=== PATIENT | female | born 1960 | race Two or more races ===

== ENCOUNTER 2016-12-30 09:56 | Inpatient (IN) | payer MEDICAID ==
[~2016-12-30] VITALS: Ht 152.4 cm; Wt 77.5 kg
[2016-12-30 11:20] LABS: Urine Bilirubin Negative (Negative); Urine Blood TRACE /uL (Negative); Urine Color Yellow (Yellow); Urine Glucose Normal (Normal); Urine Ketone Negative (Negative); Urine Nitrite Negative (Negative); Urine RBC 1 /hpf (0 - 4); Urine Squamous Epithelial Cell FEW /hpf (<5); Urine Urobilinogen Normal (Negative); Urine pH 6.5 (5.0-8.0)
[2016-12-30 11:34] LABS: Basophils # (auto) 0 uL; Basophils % (auto) 0.4 % (0.0-2.0); DEFINITIVE VIEW TRANSMISSION; Eosinophils # (auto) 0.1 uL; Eosinophils % (auto) 1.4 % (0.0-7.0); Hematocrit 38.7 % (36.0-46.0); Hemoglobin 12.6 g/dL (12.2-16.2); Lymphocytes # (auto) 1.5 uL; Mean Corpuscular Hemoglobin 24.8 pg (28.0-32.0); Mean Corpuscular Hgb Conc. 32.5 g/dL (32.0-36.0); Mean Corpuscular Volume 76.3 fL (80.0-100.0); Mean Platelet Volume 7.5 fL (7.4-10.4); Monocytes # (auto) 0.6 uL; Monocytes % (auto) 7.2 % (0.0-12.0); Neutrophils # (auto) 6.3 uL; Platelet Count (auto) 547 10^3/uL (140-450); Red Cell Distribution Width 15.4 % (11.6-16.0); White Blood Cell 8.6 10^3/uL (4.4-10.8)
[2016-12-30 11:54] LABS: Albumin 3.3 g/dL (3.4-5.0); BUN/Creatinine Ratio 8.2; Bilirubin, Total 0.3 mg/dL (0.2-1.0); Calcium 9.1 mg/dL (8.5-10.1); Potassium 3.8 mmol/L (3.5-5.1); Total Protein 8.3 g/dL (6.4-8.2)
[2016-12-30 11:58] LABS: B-Type Natriuretic Peptide 4.53 pg/mL (0-100)
[2016-12-30 12:51] LABS: Temperature: 22.4 C (20.0-25.0)
[2016-12-30] MEDS ORDERED: ONDANSETRON HCL 4 MG/2 ML VIAL IV PRN (14:00)
[2016-12-30] MEDS ORDERED: HYDROcodone-ACET 5/325MG TAB PO PRN (14:00)
[2016-12-30] MEDS ORDERED: cefTRIAXone 1GM/50ML D5W 50 ML IV ONE (14:00)
[2016-12-30] MEDS: SODIUM CHLORIDE 0.9% 1,000 ML IV SCH (14:39)
[2016-12-30] MEDS ORDERED: AZITHROMYCIN 500MG/D5W 250ML 250 ML IV ONE (15:00)
[2016-12-30 17:42] VITALS: BP 125/69
[2016-12-30] MEDS ORDERED: ACET500C PO (17:46)
[2016-12-30] MEDS ORDERED: IBUP800T24 PO (17:48)
[2016-12-30] MEDS: PROMETHAZINE W/CODEINE 5 ML ORAL SYRUP PO PRN (17:55)
[2016-12-30] MEDS: IPRATROPIUM BROM 0.5 MG/2.5ML INH SOL NEB SCH (18:56)
[2016-12-30] MEDS: ALBUTEROL SULF 2.5 MG/0.5ML(0.5%) NEB SOLN NEB SCH (18:56)
[2016-12-30 19:55] VITALS: BP 125/69
[2016-12-30 22:00] VITALS: BP 129/75
[2016-12-31] MEDS: IPRATROPIUM BROM 0.5 MG/2.5ML INH SOL NEB SCH ×4 (01:51→19:25)
[2016-12-31] MEDS: ALBUTEROL SULF 2.5 MG/0.5ML(0.5%) NEB SOLN NEB SCH ×4 (01:51→19:25)
[2016-12-31] MEDS: PROMETHAZINE W/CODEINE 5 ML ORAL SYRUP PO PRN (03:20)
[2016-12-31] MEDS: SODIUM CHLORIDE 0.9% 1,000 ML IV SCH ×3 (03:20→23:57)
[2016-12-31 05:00] VITALS: BP 115/63
[2016-12-31 05:35] LABS: Basophils # (auto) 0 uL; Basophils % (auto) 0.4 % (0.0-2.0); DEFINITIVE VIEW TRANSMISSION; Eosinophils # (auto) 0.1 uL; Eosinophils % (auto) 1.7 % (0.0-7.0); Hematocrit 35.9 % (36.0-46.0); Hemoglobin 11.8 g/dL (12.2-16.2); Lymphocytes # (auto) 1.8 uL; Mean Corpuscular Hemoglobin 25.1 pg (28.0-32.0); Mean Corpuscular Hgb Conc. 32.7 g/dL (32.0-36.0); Mean Corpuscular Volume 76.9 fL (80.0-100.0); Mean Platelet Volume 7.8 fL (7.4-10.4); Monocytes # (auto) 0.6 uL; Monocytes % (auto) 7.4 % (0.0-12.0); Neutrophils # (auto) 5.4 uL; Neutrophils % (auto) 67.5 % (37.0-80.0); Platelet Count (auto) 509 10^3/uL (140-450); Red Cell Distribution Width 15.4 % (11.6-16.0)
[2016-12-31 06:06] LABS: BUN/Creatinine Ratio 8.8; Calcium 8.4 mg/dL (8.5-10.1); Potassium 3.6 mmol/L (3.5-5.1)
[2016-12-31 07:21] VITALS: BP 115/66
[2016-12-31] MEDS: cefTRIAXone 1GM/50ML D5W 50 ML IV SCH (08:42)
[2016-12-31] MEDS ORDERED: ACETAMINOPHEN 500 MG TAB PO PRN (10:15)
[2016-12-31] MEDS: AZITHROMYCIN 500MG/D5W 250ML 250 ML IV SCH (11:09)
[2016-12-31 11:49] VITALS: BP 123/58
[2016-12-31 16:33] VITALS: BP 142/64
[2016-12-31 20:00] VITALS: BP 135/75
[2016-12-31 21:46] VITALS: BP 135/75
[2017-01-01 05:02] VITALS: BP 127/73
[2017-01-01] MEDS: ALBUTEROL SULF 2.5 MG/0.5ML(0.5%) NEB SOLN NEB SCH ×3 (06:08→12:16)
[2017-01-01] MEDS: IPRATROPIUM BROM 0.5 MG/2.5ML INH SOL NEB SCH ×3 (06:09→12:16)
[2017-01-01 09:00] VITALS: BP 150/71
[2017-01-01] MEDS: cefTRIAXone 1GM/50ML D5W 50 ML IV SCH (09:02)
[2017-01-01] MEDS: AZITHROMYCIN 500MG/D5W 250ML 250 ML IV SCH (09:41)
[2017-01-01] MEDS: SODIUM CHLORIDE 0.9% 1,000 ML IV SCH (12:47)
== END 2017-01-01 14:33 | disposition home or self-care (01) | DRG 139 ==
LOC: ER 09:56 → OVERFLOW 09:57 → CENTRAL 17:00
PROVIDERS: ADMIT Internal Medicine; ATTEND Internal Medicine
DX: J18.9 Pneumonia, unspecified organism (principal); N39.0 Urinary tract infection, site not specified; E11.9 Type 2 diabetes mellitus without complications; E66.9 Obesity, unspecified; E86.0 Dehydration; Z68.33 Body mass index [BMI] 33.0-33.9, adult
CPT/HCPCS: 36415; 71020; 80048; 80053; 81001; 83036; 83880; 85025; 94640; 96374; J0696

== ENCOUNTER 2017-01-20 12:00 | Inpatient (IN) | payer MEDICAID ==
[~2017-01-20] VITALS: Ht 152.4 cm; Wt 174.3 kg
[~2017-01-20 12:00] MED LIST: ACET500C PO; IBUP800T24 PO
[2017-01-20 12:59] LABS: Urine Bilirubin Negative (Negative); Urine Blood Negative /uL (Negative); Urine Color Yellow (Yellow); Urine Glucose Normal (Normal); Urine Ketone Negative (Negative); Urine Nitrite Negative (Negative); Urine RBC 1 /hpf (0 - 4); Urine Squamous Epithelial Cell FEW /hpf (<5); Urine Urobilinogen Normal (Negative); Urine pH 5.5 (5.0-8.0)
[2017-01-20 13:49] LABS: Basophils # (auto) 0.1 uL; Basophils % (auto) 0.7 % (0.0-2.0); DEFINITIVE VIEW TRANSMISSION; Eosinophils # (auto) 0.1 uL; Eosinophils % (auto) 1.1 % (0.0-7.0); Hematocrit 39.5 % (36.0-46.0); Hemoglobin 12.9 g/dL (12.2-16.2); Lymphocytes # (auto) 2.2 uL; Lymphocytes % (auto) 19.5 % (10.0-50.0); Mean Corpuscular Hgb Conc. 32.8 g/dL (32.0-36.0); Mean Corpuscular Volume 76.4 fL (80.0-100.0); Mean Platelet Volume 7.8 fL (7.4-10.4); Monocytes # (auto) 0.5 uL; Monocytes % (auto) 4.9 % (0.0-12.0); Neutrophils # (auto) 8.2 uL; Neutrophils % (auto) 73.8 % (37.0-80.0); Platelet Count (auto) 532 10^3/uL (140-450); Red Cell Distribution Width 16.2 % (11.6-16.0); White Blood Cell 11.1 10^3/uL (4.4-10.8)
[2017-01-20 14:21] LABS: Albumin 3.5 g/dL (3.4-5.0); Alkaline Phosphatase 95 U/L (45-117); Anion Gap 11 (5-15); Aspartate Aminotransferase 17 U/L (15-37); BUN/Creatinine Ratio 10.8; Bilirubin, Total 0.2 mg/dL (0.2-1.0); Blood Urea Nitrogen 9 mg/dL (7-18); Calcium 9.1 mg/dL (8.5-10.1); Carbon Dioxide 21 mmol/L (21-32); Chloride 110 mmol/L (98-107); GFR African American 92 mL/min; GFR Non-African American 76 mL/min; Glucose 87 mg/dL (74-106); Sodium 142 mmol/L (136-145); Total Protein 8.5 g/dL (6.4-8.2)
[2017-01-20] MEDS ORDERED: cefTRIAXone 1GM/50ML D5W 50 ML IV ONE (14:45)
[2017-01-20] MEDS ORDERED: FLUCONAZOLE 100 MG TAB PO ONE (14:45)
[2017-01-20] MEDS ORDERED: HYDROcodone-ACET 5/325MG TAB PO PRN (14:45)
[2017-01-20] MEDS ORDERED: ONDANSETRON HCL 4 MG/2 ML VIAL IV PRN (14:45)
[2017-01-20] MEDS ORDERED: MORPHINE SULF INJ 2 MG/ML SYRINGE 1ML IV PRN (14:45)
[2017-01-20] MEDS ORDERED: IOHEXOL 350 MG/ML 100ML IJ ONE (14:47)
[2017-01-20] MEDS: SODIUM CHLORIDE 0.9% 1,000 ML IV SCH (15:00)
[2017-01-20] MEDS ORDERED: SODIUM CHLORIDE 0.9% 500 ML IV ONE (15:15)
[2017-01-20] MEDS: IPRATROPIUM BROM 0.5 MG/2.5ML INH SOL NEB SCH ×2 (18:59→23:59)
[2017-01-20] MEDS: ALBUTEROL SULF 2.5 MG/0.5ML(0.5%) NEB SOLN NEB SCH ×2 (19:00→23:59)
[2017-01-20 20:08] VITALS: BP 151/69
[2017-01-20 21:45] VITALS: BP 141/70
[2017-01-21 04:48] VITALS: BP 112/56
[2017-01-21] MEDS: ALBUTEROL SULF 2.5 MG/0.5ML(0.5%) NEB SOLN NEB SCH ×3 (06:00→19:51)
[2017-01-21] MEDS: IPRATROPIUM BROM 0.5 MG/2.5ML INH SOL NEB SCH ×3 (06:00→19:51)
[2017-01-21 06:26] LABS: Basophils # (auto) 0 uL; Basophils % (auto) 0.3 % (0.0-2.0); DEFINITIVE VIEW TRANSMISSION; Eosinophils # (auto) 0.2 uL; Eosinophils % (auto) 1.5 % (0.0-7.0); Hematocrit 35.3 % (36.0-46.0); Hemoglobin 11.5 g/dL (12.2-16.2); Lymphocytes # (auto) 2.8 uL; Lymphocytes % (auto) 27.4 % (10.0-50.0); Mean Corpuscular Hgb Conc. 32.6 g/dL (32.0-36.0); Mean Corpuscular Volume 76.7 fL (80.0-100.0); Mean Platelet Volume 7.7 fL (7.4-10.4); Monocytes # (auto) 0.6 uL; Monocytes % (auto) 6.2 % (0.0-12.0); Neutrophils # (auto) 6.6 uL; Neutrophils % (auto) 64.6 % (37.0-80.0); Platelet Count (auto) 448 10^3/uL (140-450); Red Cell Distribution Width 16.1 % (11.6-16.0); White Blood Cell 10.2 10^3/uL (4.4-10.8)
[2017-01-21 06:50] LABS: BUN/Creatinine Ratio 10.6; Calcium 8.3 mg/dL (8.5-10.1); Potassium 3.7 mmol/L (3.5-5.1)
[2017-01-21 08:00] VITALS: BP 113/59
[2017-01-21 08:30] VITALS: BP 113/59
[2017-01-21] MEDS: SODIUM CHLORIDE 0.9% 1,000 ML IV SCH (09:00)
[2017-01-21] MEDS: cefTRIAXone 1GM/50ML D5W 50 ML IV SCH (09:02)
[2017-01-21] MEDS: FLUCONAZOLE 100 MG TAB PO SCH (10:00)
[2017-01-21] MEDS ORDERED: FUROSEMIDE 40 MG/4 ML VIAL IV ONE (11:00)
[2017-01-21] MEDS ORDERED: PROMETHAZINE W/CODEINE 5 ML ORAL SYRUP PO PRN (11:00)
[2017-01-21] MEDS ORDERED: POTASSIUM CHL 20 Meq TABLET PO ONE (11:00)
[2017-01-21] MEDS: PHENAZOPYRIDINE HCL 100 MG TAB PO SCH ×2 (12:24→18:13)
[2017-01-21 12:30] VITALS: BP 125/76
[2017-01-21] MEDS ORDERED: POTASSIUM CHL 10% (20 MEQ/15ML) ORAL SOLN PO ONE (16:30)
[2017-01-21 17:26] VITALS: BP 134/72
[2017-01-21 22:00] VITALS: BP 138/79
[2017-01-22] MEDS: IPRATROPIUM BROM 0.5 MG/2.5ML INH SOL NEB SCH ×4 (00:35→18:13)
[2017-01-22] MEDS: ALBUTEROL SULF 2.5 MG/0.5ML(0.5%) NEB SOLN NEB SCH ×4 (00:35→18:13)
[2017-01-22 05:00] VITALS: BP 117/50
[2017-01-22 08:00] VITALS: BP 117/63
[2017-01-22] MEDS: PHENAZOPYRIDINE HCL 100 MG TAB PO SCH ×3 (08:00→18:00)
[2017-01-22] MEDS: cefTRIAXone 1GM/50ML D5W 50 ML IV SCH (09:45)
[2017-01-22] MEDS: FLUCONAZOLE 100 MG TAB PO SCH (09:45)
[2017-01-22] MEDS ORDERED: POTASSIUM CHL 20 Meq TABLET PO ONE (11:45)
[2017-01-22] MEDS ORDERED: FUROSEMIDE 40 MG TAB PO ONE (11:45)
[2017-01-22 13:00] VITALS: BP 139/80
[2017-01-22 15:38] LABS: B-Type Natriuretic Peptide 2.22 pg/mL (0-100)
[2017-01-22 15:45] LABS: Temperature: 23.3 C (20.0-25.0)
[2017-01-22 18:00] VITALS: BP 122/77
[2017-01-22 18:07] VITALS: BP 122/77
== END 2017-01-22 19:05 | disposition home or self-care (01) | DRG 463 ==
LOC: ER 12:00 → OVERFLOW 12:01 → EAST 16:03 → WEST WING 19:24
PROVIDERS: ADMIT Internal Medicine; ATTEND Internal Medicine
DX: N39.0 Urinary tract infection, site not specified (principal); Z68.45 Body mass index [BMI] 70 or greater, adult; E66.01 Morbid (severe) obesity due to excess calories; J45.909 Unspecified asthma, uncomplicated; Z87.01 Personal history of pneumonia (recurrent)
CPT/HCPCS: 36415; 71020; 71275; 80048; 80053; 81001; 83036; 83880; 84484; 85025; 87081; 93005; 93306; 94640; 96374; J0696

== ENCOUNTER 2020-02-23 10:18 | Emergency (ER) | payer MEDICAID ==
[~2020-02-23] VITALS: Ht 152.4 cm; Wt 78.0 kg
[2020-02-23] MEDS ORDERED: SODIUM CHLORIDE 0.9% 500 ML IV ONE (11:16)
[2020-02-23] MEDS ORDERED: SODIUM CHLORIDE 0.9% 1,000 ML IV ONE (11:16)
[2020-02-23] MEDS ORDERED: KETOROLAC TROMETH 30 MG/ML 1ML VIAL IV ONE (11:30)
[2020-02-23] MEDS ORDERED: METOCLOPRAMIDE HCL 5MG/ml INJ 2ml VIAL IV ONE (11:30)
[2020-02-23 11:37] LABS: Basophils # (auto) 0.1 10 ^3/uL (0-0.2); Eosinophils # (auto) 0.1 10 ^3/uL (0-0.8); Eosinophils % (auto) 1.2 % (0.0-7.0); Monocytes # (auto) 0.5 10 ^3/uL (0-1.3); Monocytes % (auto) 4.1 % (0.0-12.0); Neutrophils % (auto) 76.6 % (37.0-80.0); Nucleated Red Blood Cells % 0.1 %
[2020-02-23 11:40] LABS: Basophils % (auto) 1.1 % (0.0-2.0); Hematocrit 41.1 % (36.0-46.0); Hemoglobin 13.2 g/dL (12.2-16.2); Mean Corpuscular Hgb Conc. 32.1 g/dL (32.0-36.0); Mean Corpuscular Volume 77.7 fL (80.0-100.0); Neutrophils # (auto) 9.1 10 ^3/uL (1.6-8.6); Platelet Count (auto) 637 10^3/uL (140-450); Red Blood Cells 5.29 10^6/uL (4.0-5.20); Red Cell Distribution Width 15.5 % (11.8-14.3); White Blood Cell 11.9 10^3/uL (4.4-10.8)
[2020-02-23 11:57] LABS: Urine Bacteria FEW /hpf (None Seen); Urine Blood Negative /uL (Negative); Urine Mucus FEW (None Seen); Urine Specific Gravity 1.019 (1.001-1.035); Urine WBC 19 /hpf (0 - 5)
[2020-02-23 12:25] LABS: Albumin 3.7 g/dL (3.4-5.0); Calcium 8.8 mg/dL (8.5-10.1); Magnesium 2.7 mg/dL (1.6-2.6); Potassium 3.3 mmol/L (3.5-5.1)
[2020-02-23 12:29] LABS: BUN/Creatinine Ratio 9.8; Bilirubin, Total 0.2 mg/dL (0.2-1.0); Total Protein 8.4 g/dL (6.4-8.2)
[2020-02-23 13:05] VITALS: BP 127/63
[2020-02-23] MEDS ORDERED: POTASSIUM EFFERVESENT TAB 25 MEQ PO ONE (13:30)
[2020-02-23] MEDS ORDERED: cefTRIAXone 1GM/50ML D5W 50 ML IV ONE (13:30)
== END 2020-02-23 14:49 | disposition home or self-care (01) ==
LOC: ER 10:18
DX: M54.17 Radiculopathy, lumbosacral region (principal); N39.0 Urinary tract infection, site not specified; E87.6 Hypokalemia; I10 Essential (primary) hypertension; E11.9 Type 2 diabetes mellitus without complications; Z90.49 Acquired absence of other specified parts of digestive tract; Z79.899 Other long term (current) drug therapy
CPT/HCPCS: 36415; 71046; 72131; 80053; 81001; 83735; 85025; 93005; 96365; 96375; 99285; J0696; J1885; J2765; J7030; J7040

== ENCOUNTER 2021-04-12 10:38 | Emergency (ER) | payer MEDICAID ==
[~2021-04-12] VITALS: Ht 152.4 cm; Wt 74.8 kg
[~2021-04-12 10:38] MED LIST changes: -IBUP800T24 PO; +IBUP800T27 PO
[2021-04-12 11:02] VITALS: BP 151/81
[2021-04-12 11:19] LABS: Eosinophils # (auto) 0.2 10 ^3/uL (0-0.8); Lymphocytes # (auto) 2.3 10 ^3/uL (0.4-5.4); Mean Corpuscular Volume 77.5 fL (80.0-100.0)
[2021-04-12 11:22] LABS: Basophils # (auto) 0 10 ^3/uL (0-0.2); Basophils % (auto) 0.3 % (0.0-2.0); Eosinophils % (auto) 1.6 % (0.0-7.0); Hematocrit 38.7 % (36.0-46.0); Lymphocytes % (auto) 19.2 % (10.0-50.0); Mean Corpuscular Hemoglobin 26.1 pg (28.0-32.0); Mean Corpuscular Hgb Conc. 33.7 g/dL (32.0-36.0); Monocytes # (auto) 0.6 10 ^3/uL (0-1.3); Monocytes % (auto) 5.1 % (0.0-12.0); Neutrophils # (auto) 8.7 10 ^3/uL (1.6-8.6); Neutrophils % (auto) 73.8 % (37.0-80.0); Nucleated Red Blood Cells % 0.1 %; Red Blood Cells 4.99 10^6/uL (4.0-5.20); Red Cell Distribution Width 15.4 % (11.8-14.3); White Blood Cell 11.8 10^3/uL (4.4-10.8)
[2021-04-12 11:55] LABS: Albumin 3.5 g/dL (3.4-5.0); Bilirubin, Total 0.3 mg/dL (0.2-1.0); Calcium 8.9 mg/dL (8.5-10.1); Magnesium 2.4 mg/dL (1.6-2.6)
[2021-04-12 12:18] LABS: Urine Bacteria FEW /hpf (None Seen); Urine Blood Negative /uL (Negative); Urine WBC 3 /hpf (0 - 5)
[2021-04-12] MEDS ORDERED: cefTRIAXone SOD 1,000 MG VL IM ONE (13:30)
== END 2021-04-12 13:56 | disposition home or self-care (01) ==
LOC: ER 10:38
DX: R51.9 Headache, unspecified (principal); H65.191 Other acute nonsuppurative otitis media, right ear; I10 Essential (primary) hypertension; Z90.49 Acquired absence of other specified parts of digestive tract
CPT/HCPCS: 36415; 70450; 70486; 80053; 81001; 82306; 83036; 83735; 84443; 85025; 96374; 99285; J0696

== ENCOUNTER → 2021-07-19 | Outpatient (CLI) | payer MEDICAID | END | disposition home or self-care (01) | LOC: LAB 06:45 | PROVIDERS: ATTEND Nurse Practitioner Family | DX: U07.1 COVID-19 (principal) | CPT/HCPCS: C9803; U0003 ==

== ENCOUNTER → 2021-07-19 | Emergency (ER) | payer MEDICAID ==
[~2021-07-19] VITALS: Ht 152.4 cm; Wt 80.3 kg
[~2021-07-19] MED LIST changes: +REGENERON 1200mg/250ml NS 250 ML IV ONE; +cloNIDine HCL 0.1 MG TAB PO ONE
[2021-07-19 14:05] VITALS: BP 170/85
[2021-07-19 14:41] VITALS: BP 171/86
[2021-07-19 14:55] VITALS: BP 137/68
[2021-07-19 15:13] VITALS: BP 115/63
== END | disposition home or self-care (01) ==
LOC: COVVAC 12:27
DX: U07.1 COVID-19 (principal)
CPT/HCPCS: J7050; M0243; Q0244; 96365

== ENCOUNTER → 2021-08-27 | Outpatient (CLI) | payer MEDICAID ==
[~2021-08-27] MED LIST changes: -REGENERON 1200mg/250ml NS 250 ML IV ONE; -cloNIDine HCL 0.1 MG TAB PO ONE
[2021-08-27 10:23] LABS: Basophils # (auto) 0.1 10 ^3/uL (0-0.2); Basophils % (auto) 1.2 % (0.0-2.0); Eosinophils # (auto) 0.1 10 ^3/uL (0-0.8); Hemoglobin 12.9 g/dL (12.2-16.2); Monocytes # (auto) 0.4 10 ^3/uL (0-1.3); Neutrophils # (auto) 5.6 10 ^3/uL (1.6-8.6)
[2021-08-27 10:24] LABS: Eosinophils % (auto) 1.6 % (0.0-7.0); Hematocrit 38.2 % (36.0-46.0); Lymphocytes % (auto) 24.2 % (10.0-50.0); Mean Corpuscular Hemoglobin 26.2 pg (28.0-32.0); Mean Corpuscular Hgb Conc. 33.8 g/dL (32.0-36.0); Mean Corpuscular Volume 77.4 fL (80.0-100.0); Monocytes % (auto) 4.7 % (0.0-12.0); Neutrophils % (auto) 68.3 % (37.0-80.0); Nucleated Red Blood Cells % 0.1 %; Red Blood Cells 4.93 10^6/uL (4.0-5.20); Red Cell Distribution Width 16.6 % (11.8-14.3); White Blood Cell 8.2 10^3/uL (4.4-10.8)
[2021-08-27 10:38] LABS: Urine Bacteria NONE SEEN /hpf (None Seen); Urine Blood Negative /uL (Negative); Urine Specific Gravity 1.013 (1.001-1.035); Urine WBC 8 /hpf (0 - 5)
[2021-08-27 11:12] LABS: Folate (Folic Acid) 14.88 ng/mL (5.38-24)
[2021-08-27 11:27] LABS: Potassium 4.4 mmol/L (3.5-5.1)
[2021-08-27 11:37] LABS: Albumin 3.3 g/dL (3.4-5.0); BUN/Creatinine Ratio 8.9; Bilirubin, Total 0.2 mg/dL (0.2-1.0); CRP High Sensitivity 0.78 mg/dL (< 0.3); Calcium 8.7 mg/dL (8.5-10.1); Total Protein 7.2 g/dL (6.4-8.2)
== END | disposition home or self-care (01) ==
LOC: LAB 10:02
PROVIDERS: ATTEND Internal Medicine
DX: U09.9 Post COVID-19 condition, unspecified (principal)
CPT/HCPCS: 36415; 80053; 81001; 82306; 82607; 82746; 84443; 85025; 85652; 86038; 86141

== ENCOUNTER → 2022-02-14 | Outpatient (CLI) | payer MEDICAID ==
[2022-02-14 08:41] LABS: Urine Bacteria NONE SEEN /hpf (None Seen); Urine Blood Negative /uL (Negative); Urine WBC 4 /hpf (0 - 5)
== END | disposition home or self-care (01) ==
LOC: LAB 08:24
PROVIDERS: ATTEND Internal Medicine
DX: N39.0 Urinary tract infection, site not specified (principal)
CPT/HCPCS: 81001; 87086

== ENCOUNTER → 2022-05-02 | Outpatient (CLI) | payer MEDICAID ==
[2022-05-02 11:51] LABS: Basophils # (auto) 0.1 10 ^3/uL (0-0.2); Eosinophils # (auto) 0.2 10 ^3/uL (0-0.8); Mean Corpuscular Hemoglobin 24.3 pg (28.0-32.0); Neutrophils % (auto) 70.6 % (37.0-80.0)
[2022-05-02 11:52] LABS: Basophils % (auto) 1.1 % (0.0-2.0); Eosinophils % (auto) 1.9 % (0.0-7.0); Hematocrit 39.3 % (36.0-46.0); Hemoglobin 12.3 g/dL (12.2-16.2); Lymphocytes # (auto) 2.2 10 ^3/uL (0.4-5.4); Lymphocytes % (auto) 21.7 % (10.0-50.0); Mean Corpuscular Hgb Conc. 31.4 g/dL (32.0-36.0); Mean Corpuscular Volume 77.4 fL (80.0-100.0); Monocytes # (auto) 0.5 10 ^3/uL (0-1.3); Monocytes % (auto) 4.7 % (0.0-12.0); Neutrophils # (auto) 7.1 10 ^3/uL (1.6-8.6); Nucleated Red Blood Cells % 0.1 %; Red Blood Cells 5.08 10^6/uL (4.0-5.20); Red Cell Distribution Width 14.9 % (11.8-14.3)
[2022-05-02 12:14] LABS: Albumin 3.3 g/dL (3.4-5.0); Calcium 8.9 mg/dL (8.5-10.1); Potassium 3.8 mmol/L (3.5-5.1)
[2022-05-02 12:24] LABS: BUN/Creatinine Ratio 12.4; Bilirubin, Total 0.3 mg/dL (0.2-1.0); Total Protein 7.5 g/dL (6.4-8.2)
== END | disposition home or self-care (01) ==
LOC: LAB 11:19
PROVIDERS: ATTEND Internal Medicine
DX: N39.0 Urinary tract infection, site not specified (principal); E03.8 Other specified hypothyroidism
CPT/HCPCS: 36415; 80053; 80061; 82274; 82306; 83036; 84439; 84443; 85025; 87086

== ENCOUNTER → 2022-05-09 | Outpatient (CLI) | payer MEDICAID | END | disposition home or self-care (01) | LOC: LAB 07:57 | PROVIDERS: ATTEND Internal Medicine | DX: Z20.822 Contact with and (suspected) exposure to COVID-19 (principal) | CPT/HCPCS: C9803; U0003 ==

== ENCOUNTER → 2022-06-17 | Outpatient (CLI) | payer MEDICAID ==
[2022-06-17 12:53] LABS: Basophils # (auto) 0.1 10 ^3/uL (0-0.2); Basophils % (auto) 0.5 % (0.0-2.0); Eosinophils # (auto) 0.2 10 ^3/uL (0-0.8); Eosinophils % (auto) 1.6 % (0.0-7.0); Hematocrit 37.4 % (36.0-46.0); Hemoglobin 12.2 g/dL (12.2-16.2); Lymphocytes % (auto) 20.2 % (10.0-50.0); Mean Corpuscular Hemoglobin 24.9 pg (28.0-32.0); Mean Corpuscular Hgb Conc. 32.7 g/dL (32.0-36.0); Mean Corpuscular Volume 76.4 fL (80.0-100.0); Monocytes # (auto) 0.4 10 ^3/uL (0-1.3); Monocytes % (auto) 4.3 % (0.0-12.0); Neutrophils # (auto) 7.4 10 ^3/uL (1.6-8.6); Neutrophils % (auto) 73.4 % (37.0-80.0); Nucleated Red Blood Cells % 0.1 %; Red Cell Distribution Width 15.4 % (11.8-14.3)
[2022-06-17 13:14] LABS: Urine Bacteria NONE SEEN /hpf (None Seen); Urine Blood Negative /uL (Negative); Urine Specific Gravity 1.008 (1.001-1.035); Urine WBC <1 /hpf (0 - 5)
[2022-06-17 13:54] LABS: Albumin 3.3 g/dL (3.4-5.0); Bilirubin, Total 0.3 mg/dL (0.2-1.0); CRP High Sensitivity 0.94 mg/dL (< 0.3); Calcium 8.7 mg/dL (8.5-10.1)
== END | disposition home or self-care (01) ==
LOC: LAB 11:45
PROVIDERS: ATTEND Internal Medicine
DX: I10 Essential (primary) hypertension (principal); N39.0 Urinary tract infection, site not specified; M06.9 Rheumatoid arthritis, unspecified
CPT/HCPCS: 36415; 80053; 81001; 82085; 83036; 83520; 85025; 85652; 86141; 86200; 86256; 86431; 87086

== ENCOUNTER → 2022-06-17 | Outpatient (CLI) | payer MEDICAID | END | disposition home or self-care (01) | LOC: XYW 08:10 | PROVIDERS: ATTEND Internal Medicine | DX: I07.1 Rheumatic tricuspid insufficiency (principal); I10 Essential (primary) hypertension | CPT/HCPCS: 93306 ==

== ENCOUNTER → 2022-09-19 | Outpatient (CLI) | payer MEDICAID ==
[2022-09-19 11:04] LABS: Urine Bacteria None Seen /hpf (None Seen); Urine WBC None Seen /hpf (0 - 5)
[2022-09-19 11:48] LABS: Urine Specific Gravity 1.029 (1.001-1.035)
[2022-09-19 11:49] LABS: Urine Blood Negative /uL (Negative)
== END | disposition home or self-care (01) ==
LOC: LAB 11:02
PROVIDERS: ATTEND Internal Medicine
DX: N39.0 Urinary tract infection, site not specified (principal)
CPT/HCPCS: 81001; 87086

== ENCOUNTER → 2022-09-26 | Outpatient (CLI) | payer MEDICAID ==
[2022-09-26 12:40] LABS: Urine Bacteria NONE SEEN /hpf (None Seen); Urine Blood Negative /uL (Negative); Urine Mucus FEW (None Seen); Urine WBC 1 /hpf (0 - 5)
== END | disposition home or self-care (01) ==
LOC: LAB 11:56
PROVIDERS: ATTEND Internal Medicine
DX: N39.0 Urinary tract infection, site not specified (principal)
CPT/HCPCS: 81001

== ENCOUNTER → 2022-10-23 | Outpatient (CLI) | payer MEDICAID ==
[2022-10-23 15:58] LABS: Urine Bacteria NONE SEEN /hpf (None Seen); Urine Blood Negative /uL (Negative); Urine Specific Gravity 1.015 (1.001-1.035); Urine WBC 22 /hpf (0 - 5)
== END | disposition home or self-care (01) ==
LOC: LAB 15:35
PROVIDERS: ATTEND Internal Medicine
DX: N39.0 Urinary tract infection, site not specified (principal)
CPT/HCPCS: 81001; 87086

== ENCOUNTER 2023-01-02 11:38 | Inpatient (IN) | payer MEDICAID ==
[~2023-01-02] VITALS: Ht 162.6 cm; Wt 78.4 kg
[2023-01-02 14:46] LABS: Basophils # (auto) 0.1 10 ^3/uL (0-0.2); Eosinophils # (auto) 0.1 10 ^3/uL (0-0.8); Lymphocytes # (auto) 2.6 10 ^3/uL (0.4-5.4); Monocytes # (auto) 0.6 10 ^3/uL (0-1.3)
[2023-01-02 14:47] LABS: Basophils % (auto) 0.9 % (0.0-2.0); Hematocrit 42.5 % (36.0-46.0); Hemoglobin 13.8 g/dL (12.2-16.2); Lymphocytes % (auto) 23.1 % (10.0-50.0); Mean Corpuscular Hemoglobin 25.1 pg (28.0-32.0); Mean Corpuscular Hgb Conc. 32.4 g/dL (32.0-36.0); Mean Corpuscular Volume 77.5 fL (80.0-100.0); Nucleated Red Blood Cells % 1.6 %; Red Blood Cells 5.48 10^6/uL (4.0-5.20); Red Cell Distribution Width 15.9 % (11.8-14.3); White Blood Cell 11.4 10^3/uL (4.4-10.8)
[2023-01-02 14:52] LABS: Urine Bacteria NONE SEEN /hpf (None Seen); Urine Blood Negative /uL (Negative); Urine Mucus FEW (None Seen); Urine Specific Gravity 1.016 (1.001-1.035); Urine WBC 2 /hpf (0 - 5)
[2023-01-02 15:03] LABS: Albumin 3.4 g/dL (3.4-5.0); CRP High Sensitivity 0.84 mg/dL (< 0.3); Magnesium 2.6 mg/dL (1.6-2.6); Potassium 3.6 mmol/L (3.5-5.1)
[2023-01-02 15:06] LABS: BUN/Creatinine Ratio 9.5 (10.0-20.0); Bilirubin, Total 0.2 mg/dL (0.2-1.0); Total Protein 7.7 g/dL (6.4-8.2)
[2023-01-02] MEDS ORDERED: IPRATROPIUM BROM 0.5 MG/2.5ML INH SOL NEB ONE (16:00)
[2023-01-02] MEDS ORDERED: LACTATED RINGER'S 1,000 ML IV ONE (16:00)
[2023-01-02] MEDS ORDERED: ALBUTEROL SULF 2.5 MG/0.5ML(0.5%) NEB SOLN NEB ONE (16:00)
[2023-01-02] MEDS ORDERED: DOCUSATE SOD 100 MG CAP PO PRN (17:00)
[2023-01-02] MEDS ORDERED: LORazepam 0.5 MG TAB PO PRN (17:00)
[2023-01-02] MEDS ORDERED: HYDROmorphone HCL 2 MG/ML VL/or syr IV PRN (17:00)
[2023-01-02] MEDS ORDERED: MAALOX PLUS or MAALOX 30 ML PO PRN ×2 (17:00)
[2023-01-02 17:53] VITALS: BP 136/92
[2023-01-02] MEDS: IPRATROPIUM BROM 0.5 MG/2.5ML INH SOL NEB SCH ×2 (19:47→22:00)
[2023-01-02] MEDS: ALBUTEROL SULF 2.5 MG/0.5ML(0.5%) NEB SOLN NEB SCH ×2 (19:47→22:00)
[2023-01-02 20:41] VITALS: BP 137/75
[2023-01-02] MEDS ORDERED: PROMETHAZINE W/CODEINE 5 ML ORAL SYRUP PO PRN (21:00)
[2023-01-02] MEDS ORDERED: AMLO-496 PO (21:28)
[2023-01-02] MEDS: FAMOTIDINE 20 MG TAB PO SCH (21:50)
[2023-01-02 22:00] VITALS: BP 137/75
[2023-01-02] MEDS: DOXYCYCLINE 100 MG TAB/CAP PO SCH (22:00)
[2023-01-02] MEDS: SUCRALFATE 1 GM/10 ML ORAL SUSP PO SCH (22:03)
[2023-01-02] MEDS: methylPREDNISolone SOD SUCC 40 MG/ML VL IV SCH (22:56)
[2023-01-02] MEDS: SODIUM CHLOR 0.9% PF (SALINE LOCK) 10ML VIAL/SYR IV SCH (22:56)
[2023-01-02] MEDS: MAGNESIUM SULFATE 1GM/100ML 100 ML IV SCH ×2 (22:57→22:58)
[2023-01-02] MEDS: SODIUM CHLORIDE 0.9% 1,000 ML IV SCH (22:57)
[2023-01-02] MEDS: ACETAMINOPHEN 325 MG TAB PO PRN (23:00)
[2023-01-03] VITALS (7 sets, daily range): BP systolic 119–143; BP diastolic 66–71
[2023-01-03] MEDS: methylPREDNISolone SOD SUCC 40 MG/ML VL IV SCH ×3 (06:00→21:30)
[2023-01-03] MEDS: SODIUM CHLOR 0.9% PF (SALINE LOCK) 10ML VIAL/SYR IV SCH ×3 (06:00→21:31)
[2023-01-03] MEDS: SUCRALFATE 1 GM/10 ML ORAL SUSP PO SCH ×2 (06:02→17:08)
[2023-01-03] MEDS: SODIUM CHLORIDE 0.9% 1,000 ML IV SCH ×2 (06:35→19:55)
[2023-01-03] MEDS: ALBUTEROL SULF 2.5 MG/0.5ML(0.5%) NEB SOLN NEB SCH ×5 (06:48→22:06)
[2023-01-03] MEDS: IPRATROPIUM BROM 0.5 MG/2.5ML INH SOL NEB SCH ×5 (06:48→22:07)
[2023-01-03] MEDS: cefTRIAXone 1GM/50ML D5W 50 ML IV SCH (09:12)
[2023-01-03] MEDS: DOXYCYCLINE 100 MG TAB/CAP PO SCH ×2 (09:13→21:30)
[2023-01-03] MEDS: FAMOTIDINE 20 MG TAB PO SCH ×2 (09:13→21:31)
[2023-01-03 11:09] LABS: Basophils # (auto) 0.2 10 ^3/uL (0-0.2); Eosinophils # (auto) 0 10 ^3/uL (0-0.8); Monocytes # (auto) 0.1 10 ^3/uL (0-1.3)
[2023-01-03 11:11] LABS: Basophils % (auto) 1.7 % (0.0-2.0); Hematocrit 39.3 % (36.0-46.0); Hemoglobin 13.4 g/dL (12.2-16.2); Lymphocytes # (auto) 1.1 10 ^3/uL (0.4-5.4); Mean Corpuscular Hemoglobin 25.6 pg (28.0-32.0); Mean Corpuscular Hgb Conc. 34.2 g/dL (32.0-36.0); Mean Corpuscular Volume 74.9 fL (80.0-100.0); Monocytes % (auto) 0.5 % (0.0-12.0); Neutrophils % (auto) 88.8 % (37.0-80.0); Nucleated Red Blood Cells % 0.2 %; Red Blood Cells 5.25 10^6/uL (4.0-5.20); Red Cell Distribution Width 16.2 % (11.8-14.3); White Blood Cell 12.4 10^3/uL (4.4-10.8)
[2023-01-03 11:14] LABS: Albumin 3.3 g/dL (3.4-5.0); BUN/Creatinine Ratio 6.5 (10.0-20.0); Calcium 9.2 mg/dL (8.5-10.1); Potassium 3.8 mmol/L (3.5-5.1)
[2023-01-03 11:18] LABS: Bilirubin, Total 0.1 mg/dL (0.2-1.0); Total Protein 7.8 g/dL (6.4-8.2)
[2023-01-03] MEDS ORDERED: ERGOCALCIFEROL 50,000 UNIT(1.25MG) CAP PO SCH (18:30)
[2023-01-04 05:00] VITALS: BP 117/69
[2023-01-04] MEDS: SODIUM CHLOR 0.9% PF (SALINE LOCK) 10ML VIAL/SYR IV SCH ×2 (05:58→14:00)
[2023-01-04] MEDS: methylPREDNISolone SOD SUCC 40 MG/ML VL IV SCH (06:28)
[2023-01-04] MEDS: SUCRALFATE 1 GM/10 ML ORAL SUSP PO SCH (06:28)
[2023-01-04] MEDS: IPRATROPIUM BROM 0.5 MG/2.5ML INH SOL NEB SCH ×3 (07:15→14:02)
[2023-01-04] MEDS: ALBUTEROL SULF 2.5 MG/0.5ML(0.5%) NEB SOLN NEB SCH ×3 (07:15→14:02)
[2023-01-04 09:00] VITALS: BP 112/62
[2023-01-04] MEDS: ACETAMINOPHEN 325 MG TAB PO PRN (09:12)
[2023-01-04] MEDS: DOXYCYCLINE 100 MG TAB/CAP PO SCH (09:13)
[2023-01-04] MEDS: FAMOTIDINE 20 MG TAB PO SCH (09:14)
[2023-01-04] MEDS: cefTRIAXone 1GM/50ML D5W 50 ML IV SCH (09:16)
[2023-01-04] MEDS ORDERED: ERGO1CAP23 PO (11:28)
[2023-01-04] MEDS ORDERED: FLUT110A INH (11:28)
[2023-01-04] MEDS ORDERED: PRED20TA2 PO (11:28)
[2023-01-04] MEDS ORDERED: PANT40TA2 PO (11:28)
[2023-01-04] MEDS ORDERED: ALBUAER3 IN (11:28)
[2023-01-04] MEDS ORDERED: MONT5CHW23 PO (11:28)
[2023-01-04 13:00] VITALS: BP 132/58
[2023-01-04 13:48] VITALS: BP 132/58
== END 2023-01-04 15:44 | disposition home or self-care (01) | DRG 137 ==
LOC: ER 11:38 → OVERFLOW 17:04 → EAST 19:23
PROVIDERS: ADMIT Internal Medicine; ATTEND Internal Medicine
DX: J15.6 Pneumonia due to other Gram-negative bacteria (principal); I31.39 Other pericardial effusion (noninflammatory); R65.10 Systemic inflammatory response syndrome (SIRS) of non-infectious origin without acute organ dysfunction; J45.901 Unspecified asthma with (acute) exacerbation; K21.9 Gastro-esophageal reflux disease without esophagitis; E66.9 Obesity, unspecified; E86.0 Dehydration; H65.191 Other acute nonsuppurative otitis media, right ear; R73.03 Prediabetes; Z20.822 Contact with and (suspected) exposure to COVID-19; M79.7 Fibromyalgia; G89.29 Other chronic pain; J42 Unspecified chronic bronchitis; Z82.0 Family history of epilepsy and other diseases of the nervous system; Z82.49 Family history of ischemic heart disease and other diseases of the circulatory system; Z83.3 Family history of diabetes mellitus; Z86.16 Personal history of COVID-19; Z87.01 Personal history of pneumonia (recurrent); Z68.29 Body mass index [BMI] 29.0-29.9, adult; Z88.0 Allergy status to penicillin
CPT/HCPCS: 36415; 71250; 74176; 80053; 80061; 81001; 82306; 83036; 83735; 84443; 85025; 85652; 86141; 87426; 87804; 93005; 93306; 94640; G0378; J0696

== ENCOUNTER → 2023-04-30 | Outpatient (CLI) | payer MEDICAID ==
[~2023-04-30] MED LIST changes: +ALBUAER3 IN; +AMLO1TAB23 PO; +ERGO1CAP23 PO; +FLUT110A INH; -IBUP800T27 PO; +MONT5CHW12 PO; +PANT40TA2 PO; +PRED20TA2 PO
[2023-04-30 14:28] LABS: Basophils # (auto) 0.1 10 ^3/uL (0-0.2); Basophils % (auto) 0.9 % (0.0-2.0); Eosinophils # (auto) 0.1 10 ^3/uL (0-0.8); Eosinophils % (auto) 1.2 % (0.0-7.0); Hemoglobin 12.9 g/dL (12.2-16.2); Lymphocytes # (auto) 2.3 10 ^3/uL (0.4-5.4); Lymphocytes % (auto) 20.4 % (10.0-50.0); Mean Corpuscular Hemoglobin 25.1 pg (28.0-32.0); Mean Corpuscular Hgb Conc. 32.4 g/dL (32.0-36.0); Mean Corpuscular Volume 77.3 fL (80.0-100.0); Monocytes # (auto) 0.7 10 ^3/uL (0-1.3); Monocytes % (auto) 6.4 % (0.0-12.0); Neutrophils % (auto) 71.1 % (37.0-80.0); Red Blood Cells 5.17 10^6/uL (4.0-5.20); Red Cell Distribution Width 15.5 % (11.8-14.3); White Blood Cell 11.2 10^3/uL (4.4-10.8)
[2023-04-30 14:46] LABS: Urine Bacteria NONE SEEN /hpf (None Seen); Urine Blood Negative /uL (Negative); Urine Specific Gravity 1.017 (1.001-1.035); Urine WBC 3 /hpf (0 - 5)
[2023-04-30 15:02] LABS: Albumin 3.3 g/dL (3.4-5.0); Calcium 8.9 mg/dL (8.5-10.1); Potassium 3.5 mmol/L (3.5-5.1)
[2023-04-30 15:06] LABS: BUN/Creatinine Ratio 8.1 (10.0-20.0); Bilirubin, Total 0.3 mg/dL (0.2-1.0); CRP High Sensitivity 0.92 mg/dL (< 0.3); Total Protein 7.4 g/dL (6.4-8.2)
== END | disposition home or self-care (01) ==
LOC: LAB 14:15
PROVIDERS: ATTEND Internal Medicine
DX: E11.22 Type 2 diabetes mellitus with diabetic chronic kidney disease (principal)
CPT/HCPCS: 36415; 80053; 81001; 82274; 83036; 85025; 85652; 86141; 87086

== ENCOUNTER → 2023-11-18 | Outpatient (CLI) | payer MEDICAID ==
[2023-11-18 15:01] LABS: Urine Bacteria NONE SEEN /hpf (None Seen); Urine Blood Negative /uL (Negative); Urine Clarity Clear (Clear); Urine Color Yellow (Yellow); Urine Protein, UAD Negative (Negative); Urine Specific Gravity 1.019 (1.001-1.035); Urine Urobilinogen Normal (Negative); Urine WBC 14 /hpf (0 - 5); Urine pH 5.5 (5.0-8.0)
[2023-11-18 15:01] LABS: Basophils # (auto) 0.1 10 ^3/uL (0-0.2); Basophils % (auto) 0.7 % (0.0-2.0); Hemoglobin 12.6 g/dL (12.2-16.2); Monocytes # (auto) 0.7 10 ^3/uL (0-1.3); Neutrophils % (auto) 71.8 % (37.0-80.0)
[2023-11-18 15:03] LABS: Eosinophils # (auto) 0.4 10 ^3/uL (0-0.8); Eosinophils % (auto) 3.5 % (0.0-7.0); Hematocrit 38.4 % (36.0-46.0); Lymphocytes # (auto) 2.3 10 ^3/uL (0.4-5.4); Lymphocytes % (auto) 18.3 % (10.0-50.0); Mean Corpuscular Hemoglobin 25.4 pg (28.0-32.0); Mean Corpuscular Hgb Conc. 32.7 g/dL (32.0-36.0); Mean Corpuscular Volume 77.7 fL (80.0-100.0); Monocytes % (auto) 5.7 % (0.0-12.0); Neutrophils # (auto) 8.8 10 ^3/uL (1.6-8.6); Nucleated Red Blood Cells % 0.1 %; Red Blood Cells 4.95 10^6/uL (4.0-5.20); Red Cell Distribution Width 15.1 % (11.8-14.3); White Blood Cell 12.3 10^3/uL (4.4-10.8)
[2023-11-18 15:08] LABS: Alanine Aminotransferase 23 U/L (7-40); Albumin 4.3 g/dL (3.2-4.8); Alkaline Phosphatase 86 U/L (46-116); Anion Gap 8 (5-15); Aspartate Aminotransferase 23 U/L (13-40); BUN/Creatinine Ratio 9.6 (10.0-20.0); Blood Urea Nitrogen 8 mg/dL (9-23); Calcium 9.3 mg/dL (8.5-10.1); Carbon Dioxide 26 mmol/L (20-30); Chloride 107 mmol/L (98-107); Glucose 142 mg/dL (74-106); Potassium 3.8 mmol/L (3.5-5.1); Sodium 141 mmol/L (136-145)
[2023-11-18 15:09] LABS: Bilirubin, Total 0.2 mg/dL (0.2-1.0)
== END | disposition home or self-care (01) ==
LOC: LAB 13:53
PROVIDERS: ATTEND Internal Medicine
DX: I10 Essential (primary) hypertension (principal); E11.9 Type 2 diabetes mellitus without complications
CPT/HCPCS: 36415; 80053; 81001; 82306; 83036; 85025; 87086

== ENCOUNTER → 2023-12-11 | Outpatient (CLI) | payer MEDICAID ==
[2023-12-11 12:18] LABS: Basophils # (auto) 0.1 10 ^3/uL (0-0.2); Eosinophils # (auto) 0.2 10 ^3/uL (0-0.8); Hemoglobin 13.3 g/dL (12.2-16.2); Neutrophils # (auto) 8.7 10 ^3/uL (1.6-8.6); Red Cell Distribution Width 15.6 % (11.8-14.3)
[2023-12-11 12:20] LABS: Basophils % (auto) 0.9 % (0.0-2.0); Eosinophils % (auto) 1.3 % (0.0-7.0); Hematocrit 41.8 % (36.0-46.0); Lymphocytes # (auto) 2.8 10 ^3/uL (0.4-5.4); Lymphocytes % (auto) 22.3 % (10.0-50.0); Mean Corpuscular Hemoglobin 25.4 pg (28.0-32.0); Mean Corpuscular Hgb Conc. 31.9 g/dL (32.0-36.0); Mean Corpuscular Volume 79.5 fL (80.0-100.0); Monocytes # (auto) 0.7 10 ^3/uL (0-1.3); Monocytes % (auto) 5.8 % (0.0-12.0); Neutrophils % (auto) 69.7 % (37.0-80.0); Nucleated Red Blood Cells % 0.1 %; Red Blood Cells 5.26 10^6/uL (4.0-5.20); White Blood Cell 12.5 10^3/uL (4.4-10.8)
== END | disposition home or self-care (01) ==
LOC: LAB 11:51
PROVIDERS: ATTEND Internal Medicine
DX: R55 Syncope and collapse (principal)
CPT/HCPCS: 36415; 84443; 85025

== ENCOUNTER → 2024-02-04 | Outpatient (CLI) | payer MEDICAID | END | disposition home or self-care (01) | LOC: LAB 12:21 | PROVIDERS: ATTEND Internal Medicine | DX: E11.22 Type 2 diabetes mellitus with diabetic chronic kidney disease (principal); N18.9 Chronic kidney disease, unspecified | CPT/HCPCS: 36415; 82306; 83036 ==

== ENCOUNTER → 2024-04-27 | Outpatient (CLI) | payer MEDICAID ==
[2024-04-27 12:37] LABS: Urine Bacteria None Seen /hpf (None Seen)
[2024-04-27 12:44] LABS: Urine Blood Negative /uL (Negative); Urine Clarity Clear (Clear); Urine Color Colorless (Yellow); Urine Protein, UAD Negative (Negative); Urine Urobilinogen Normal (Negative); Urine WBC 2 /hpf (0 - 5)
== END | disposition home or self-care (01) ==
LOC: LAB 12:33
PROVIDERS: ATTEND Internal Medicine
DX: N39.0 Urinary tract infection, site not specified (principal)
CPT/HCPCS: 81001

== ENCOUNTER → 2024-09-08 | Outpatient (CLI) | payer MEDICAID ==
[2024-09-08] MEDS: REGADENOSON 0.4 MG/5 ML SYRG IV ONE ×2 (13:14→13:24)
--- NOTE | 2024-09-08 16:48 | DVHSR ---
APPROVED REPORT Exam: Nuclear Stress Test BMI: 0 Stress Test Details HR Max Heart Rate (APMHR): 158.325270 bpm Target HR (85% APMHR): 134.596197 bpm BP ECG Stress ECG Conclusion Resting ECG shows normal sinus rhythm. At peak stress level patient developed1 mm ST segment horizon case depression suggestive of ischemia without symptoms. Resting images shows near homogeneous uptake of radioactive tracer throughout the myocardium without evidence of myocardial infarction. Stress images shows near homogeneous uptake of radioactive tracer throughout the myocardium without e vidence of myocardial ischemia. Well-preserved left ventricular systolic function with estimated ejection fraction is 72%. Impression: Negative stress test for ischemia, low risk study. NM EXAM: Myocardial Perfusion REST/STRESS Imaging Protocol: Rest Tc-99m/Stress Tc-99m 1 day Resting Data Rest SPECT myocardial perfusion imaging was performed in supine position 60 minutes following the int ravenous injection of 12 mCi of Tc-99m Sestamibi. Time of rest injection: 1215 Time of rest imagin Administration Route: IV Administration Site: Right AC Pharmacologic Stress Pharmacologic stress test was performed by injecting Regadenoson 0.4 mg IV push followed by the intra venous injection of 32.7 mCi of Tc-99m Sestamibi. Time of stress injection: 1327 Time of stress imagin Administration Route: IV Administration Site: Right AC Gated Stress SPECT was performed 60 minutes after stress injection. The images were gated to evaluate regional wall motion and calculate left ventricular ejection fracti on. Stress only was performed in the Supine position. Nuclear Conclusion ECG Findings: positive for ischemia Clinical Findings: negative for ischemia Nuclear Findings: negative for ischemia Exercise Capacity: not assessed Left Ventricular Function: normal Risk Study: low Resting ECG shows normal sinus rhythm. At peak stress level patient developed1 mm ST segment horizon case depression suggestive of ischemia without symptoms. Resting images shows near homogeneous uptake of radioactive tracer throughout the myocardium without evidence of myocardial infarction. Stress images shows near homogeneous uptake of radioactive tracer throughout the myocardium without e vidence of myocardial ischemia. Well-preserved left ventricular systolic function with estimated ejection fraction is 72%. Impression: Negative stress test for ischemia, low risk study.
== END | disposition home or self-care (01) ==
LOC: XYW 12:11
PROVIDERS: ATTEND Internal Medicine
DX: R07.9 Chest pain, unspecified (principal); K76.89 Other specified diseases of liver; R05.3 Chronic cough; F32.0 Major depressive disorder, single episode, mild; M54.50 Low back pain, unspecified; E11.9 Type 2 diabetes mellitus without complications; I10 Essential (primary) hypertension
CPT/HCPCS: 78452; 93017; A9500; J2785

== ENCOUNTER → 2024-09-17 | Day surgery (SDC) | payer MEDICAID ==
[2024-09-10 13:17] LABS: Basophils # (auto) 0.1 10 ^3/uL (0-0.2); Eosinophils # (auto) 0.1 10 ^3/uL (0-0.8); Lymphocytes # (auto) 2.3 10 ^3/uL (0.4-5.4); Monocytes # (auto) 0.6 10 ^3/uL (0-1.3); Nucleated Red Blood Cells % 0.1 %
[2024-09-10 13:20] LABS: Basophils % (auto) 0.9 % (0.0-2.0); Eosinophils % (auto) 1.1 % (0.0-7.0); Hematocrit 40.1 % (36.0-46.0); Hemoglobin 13.4 g/dL (12.2-16.2); Lymphocytes % (auto) 22.4 % (10.0-50.0); Mean Corpuscular Hgb Conc. 33.4 g/dL (32.0-36.0); Mean Corpuscular Volume 77.9 fL (80.0-100.0); Monocytes % (auto) 6.2 % (0.0-12.0); Neutrophils # (auto) 7.2 10 ^3/uL (1.6-8.6); Neutrophils % (auto) 69.4 % (37.0-80.0); Platelet Count (auto) 684 10^3/uL (140-450); Red Blood Cells 5.15 10^6/uL (4.0-5.20); Red Cell Distribution Width 15.8 % (11.8-14.3); White Blood Cell 10.4 10^3/uL (4.4-10.8)
[2024-09-10 13:34] LABS: Urine Bacteria FEW /hpf (None Seen); Urine Blood Negative /uL (Negative); Urine Clarity Clear (Clear); Urine Color Light-Yellow (Yellow); Urine Mucus FEW (None Seen); Urine Protein, UAD TRACE (Negative); Urine Specific Gravity 1.024 (1.001-1.035); Urine Squamous Epithelial Cell FEW /hpf (<5); Urine Urobilinogen Normal (Negative); Urine WBC 4 /hpf (0 - 5); Urine pH 5.5 (5.0-9.0)
[2024-09-10 13:38] LABS: INR 1.08 (0.9-1.15); Partial Thromboplastin Time 29.3 SEC (24.5-34.5); Prothrombin Time 11.4 sec (9.3-11.8)
[2024-09-10 13:41] LABS: Alanine Aminotransferase 26 U/L (7-40); Albumin 4.5 g/dL (3.2-4.8); Alkaline Phosphatase 98 U/L (46-116); Anion Gap 8 (5-15); Aspartate Aminotransferase 21 U/L (13-40); BUN/Creatinine Ratio 11.2 (10.0-20.0); Blood Urea Nitrogen 11 mg/dL (9-23); Calcium 10.3 mg/dL (8.7-10.4); Carbon Dioxide 25 mmol/L (20-31); Glucose 87 mg/dL (74-106); Sodium 141 mmol/L (136-145); Total Protein 7.5 g/dL (5.7-8.2)
[2024-09-10 14:09] LABS: Chloride 108 mmol/L (98-107)
[2024-09-10 14:40] LABS: Bilirubin, Total 0.2 mg/dL (0.2-1.0)
[~2024-09-17] VITALS: Ht 152.4 cm; Wt 58.5 kg
[~2024-09-17] MED LIST changes: -ACET500C PO; +DexAMETHasone SOD PHOS 10MG/1ML VIAL INJ ONE; +EMPA1TAB PO; -ERGO1CAP23 PO; -FLUT110A INH; +MEPERIDINE HCL (25 MG/ML) 1ML VIAL ONE; -MONT5CHW12 PO; -PANT40TA2 PO; -PRED20TA2 PO; +PROPOFOL 10 MG/ML 20 ML IV ONE; +fentaNYL CITRATE 100 MCG/2 ML VL ONE
[2024-09-17] MEDS: LIDOCAINE VISCOUS 2% 15ML UD ONE (13:31)
[2024-09-17 14:05] VITALS: TEMP 99.2; O2SAT 98
--- NOTE | 2024-09-17 14:18 | DVHOP2 ---
Operative Report DATE OF OPERATION: 09/17/24 PROCEDURE: Upper Endoscopy with biopsy and cold snare polypectomy. PREOPERATIVE INDICATION: The patient is a 64 -year-old female undergoing endoscopy for epigastric pain and dyspepsia POSTOPERATIVE DIAGNOSES: 1. Mild gastritis involving the antrum and body of the stomach with mild gastropathy in the proximal stomach 2. There was a 2-3 mm benign-appearing antral gastric polyp that was removed via cold snare polypectomy and the specimen was retrieved 3. 0.5 cm sliding-type hiatal hernia with slightly irregular squamocolumnar junction with no significant esophagitis PROCEDURE PERFORMED BY: Woody Vogel GI NURSE: Breezy SCOPE: Olympus videoendoscope. ASA CLASS: 3. PREOPERATIVE MEDICATIONS: Dr. Washington [place] PROCEDURE IN DETAIL: After obtaining an informed consent, the patient was placed on left lateral decubitus position. The patient was then sedated with the above medications. A bite block was placed between her teeth. The endoscope was then passed through the oropharynx, into the esophagus, and through the stomach and pylorus up to the second and third part of the duodenum. The endoscope was then withdrawn. The 2nd and 3rd part of the duodenal were normal and the duodenal bulb showed mild duodenitis. Duodenal biopsies were obtained Patient had mild antral gastritis and mild gastropathy of the proximal stomach. Gastric biopsies were obtained. In the antrum there was a 3 mm benign-appearing antral gastric polypoid nodule This was removed via cold snare polypectomy and the specimen was retrieved. The endoscope was then withdrawn into the distal esophagus Patient had a 0.5 cm sliding-type hiatal hernia with slightly irregular squamocolumnar junction no significant erosive esophagitis. The remaining distal and proximal esophagus and oropharynx were unremarkable The patient tolerated the procedure well without difficulty. COMPLICATIONS : None SPECIMENS: Duodenal biopsy Gastric biopsies Gastric polyp DISPOSITION: Stable D/C to home PLAN: 1. Await for biopsy result 2. Will place pt on Protonix 40 mg p.o. daily 3. Resume GI soft diet advance as tolerated 4. Hold aspirin NSAIDs for one week 5. Outpatient follow up with me in 4-6 weeks to review results and discuss further management OWODY VOGEL MD Sep 17, 2024 14:18
--- NOTE | 2024-09-17 14:21 | DVHOP2 ---
Operative Report DATE OF OPERATION: 09/17/24 PROCEDURE: Colonoscopy with cold biopsy. PREOPERATIVE INDICATION: The patient is a 64 -year-old female undergoing colonoscopy for colon cancer screening for change in bowel habits POSTOPERATIVE DIAGNOSES: 1. Trace internal hemorrhoids otherwise essentially completely normal colonoscopy examination up to the cecum and terminal ileum PROCEDURE PERFORMED BY: Woody Vogel M.D. SCOPE: Olympus videocolonoscope. ASA CLASS: 3. PREOPERATIVE MEDICATIONS: Mac Dr. Washington biswas PROCEDURE IN DETAIL: After obtaining an informed consent, the patient was placed on left lateral decubitus position. She was then sedated with the above medications. A rectal examination was performed that was normal. The colonoscope was then passed through the anus into the rectosigmoid and through the descending, transverse, and ascending colon up to the cecum with visualization of the appendiceal orifice, base of the cecum and the ileocecal valve. The colonoscope was then withdrawn. The distal 3-5 cm of the terminal ileum were normal There were no polyps or masses. There was no colitis or diverticular disease. The colonic mucosa appeared to be normal. Some random colon biopsies were obtained in the left colon to rule out microscopic colitis On retroflexion and straight on view the patient had trace internal hemorrhoids. The patient tolerated the procedure well without difficulty. WITHDRAWAL TIME: 6 minutes QUALITY OF THE PREP: [place] Bowel Prep score: 9. COMPLICATIONS : None SPECIMENS: Random rectosigmoid biopsies DISPOSITION: Stable D/C to home PLAN: 1. Repeat colonoscopy in 10 years 2. Resume GI soft diet advance as tolerated 3. Outpatient follow up with me in 4-6 weeks to review results and discuss further management WOODY VOGEL MD Sep 17, 2024 14:21
[2024-09-17 15:15] VITALS: BP 134/79; PULSE 74; RESP 13; O2SAT 93
== END | disposition home or self-care (01) ==
LOC: GI 11:04
PROVIDERS: ATTEND Internal Medicine Gastroenterology
DX: R19.4 Change in bowel habit (principal); K29.50 Unspecified chronic gastritis without bleeding; B96.81 Helicobacter pylori [H. pylori] as the cause of diseases classified elsewhere; R10.13 Epigastric pain; K31.7 Polyp of stomach and duodenum; K44.9 Diaphragmatic hernia without obstruction or gangrene; K64.8 Other hemorrhoids; J45.909 Unspecified asthma, uncomplicated; I10 Essential (primary) hypertension; E11.9 Type 2 diabetes mellitus without complications; G89.29 Other chronic pain; I25.10 Atherosclerotic heart disease of native coronary artery without angina pectoris; E66.9 Obesity, unspecified; Z88.0 Allergy status to penicillin; Z90.49 Acquired absence of other specified parts of digestive tract; Z79.899 Other long term (current) drug therapy; Z79.84 Long term (current) use of oral hypoglycemic drugs; Z88.8 Allergy status to other drugs, medicaments and biological substances; Z98.890 Other specified postprocedural states
CPT/HCPCS: 36415; 43239; 43251; 45380; 80053; 81001; 82962; 85025; 85610; 85730; 88305; 88312; 88342; J1100; J2175; J2704; J3010; J7030

== ENCOUNTER → 2024-11-25 | Outpatient (CLI) | payer MEDICAID ==
[~2024-11-25] MED LIST changes: -DexAMETHasone SOD PHOS 10MG/1ML VIAL INJ ONE; -MEPERIDINE HCL (25 MG/ML) 1ML VIAL ONE; -PROPOFOL 10 MG/ML 20 ML IV ONE; -fentaNYL CITRATE 100 MCG/2 ML VL ONE
== END | disposition home or self-care (01) ==
LOC: LAB 08:23
PROVIDERS: ATTEND Internal Medicine
DX: N39.0 Urinary tract infection, site not specified (principal); R19.7 Diarrhea, unspecified
CPT/HCPCS: 85048; 87045; 87177; 87427; 87493

== ENCOUNTER → 2024-12-10 | Outpatient (CLI) | payer MEDICAID ==
[2024-12-10 09:05] LABS: Urine Bacteria FEW /hpf (None Seen); Urine Blood Negative /uL (Negative); Urine Clarity Clear (Clear); Urine Color Colorless (Yellow); Urine Protein, UAD Negative (Negative); Urine Specific Gravity 1.009 (1.001-1.035); Urine Squamous Epithelial Cell FEW /hpf (<5); Urine Urobilinogen Normal (Negative); Urine WBC 3 /HPF (0-5); Urine pH 5.5 (5.0-9.0)
== END | disposition home or self-care (01) ==
LOC: LAB 06:35
PROVIDERS: ATTEND Urology
DX: N39.0 Urinary tract infection, site not specified (principal)
CPT/HCPCS: 81001; 87086

== ENCOUNTER 2024-12-16 12:20 | Inpatient (IN) | payer MEDICAID ==
[~2024-12-16] VITALS: Ht 154.9 cm; Wt 81.8 kg
[2024-12-16] VITALS (7 sets, daily range): BP systolic 136–168; BP diastolic 65–78; PULSE 77–88; RESP 17–18; TEMP 97.8–98; O2SAT 95–98
[~2024-12-16 12:20] MED LIST changes: +AMOX1CAP87 PO
[2024-12-16 13:35] LABS: Urine Bacteria None Seen /hpf (None Seen)
--- NOTE | 2024-12-16 13:43 | ED.PDOC ---
GI ASSESSMENT HPI Comments A 64 YEAR OLD FEMALE PRESENTS TO THE ED WITH CHIEF COMPLAINT OF ABDOMINAL PAIN. PATIENT REPORTS THAT SHE WAS DIAGNOSED A WEEK AGO WITH H. PYLORI AFTER EXPERIENCING ABDOMINAL PAIN FOR THE PAST MONTH. PATIENT RELAYS THAT SHE WAS PRESCRIBED TALICIA AND HAS TAKEN IT FOR OVER A WEEK NOW. PATIENT STATES SHE STARTED TO RECENTLY EXPERIENCE SEVERE DIFFUSE ABDOMINAL PAIN WITH ASSOCIATED NAUSEA, DIARRHEA, DIZZINESS, BODY PAIN, AND LEG PAIN FOR THE PAST 10 DAYS. PATIENT NOTES SHE WAS ADVISED BY HER PCP DR. MONTGOMERY TO COME INTO THE ED FOR FURTHER EVALUATION. PATIENT DENIES FEVER, SOB, CHEST PAIN, VOMITING, FEVER, CHILLS, DYSURIA, HEADACHE, HEMATURIA, BLOODY DIARRHEA OR ALL OTHER COMPLAINTS. Chief Complaint: Abdominal Pain Time Seen by MD: 13:35 Primary Care Provider: ULISES Reviewed Notes: Nurses Notes, Medications, Allergies Allergies: Coded Allergies: Penicillins (Verified Allergy, Unknown, 09/10/24) red rashes Home Meds Active Scripts Albuterol Sulfate (VENTOLIN MDI) 90 Mcg Ih, 90 MCG IN BID for 30 Days, #30 INH Prov:SAW MONTGOMERY MD 01/04/23 Reported Medications Empagliflozin (Jardiance) 10 Mg Tab, 10 MG PO, TAB 09/10/24 Amlodipine Besylate (Amlodipine Besylate) 10 Mg Tab, 1 TAB PO DAILY 01/02/23 Information Source: Patient Mode of Arrival: Ambulatory Timing: Months Duration: Since onset Prehospital treatment: None Quality: Aching, Cramping, Sharp, Colicky Vomitus: None Stool: Loose Severity: Moderate Recent: Antibiotics Recent Hx of: None Pain Location: Diffuse Modifying Factors: Nothing Associated sign and symptoms: Nausea, Diarrhea, Abdominal Pain Past Medical History PAST MEDICAL HISTORY: DM, HTN, UTI'S Past Medical History (Other): GASTRITIS Surgical History: Cholecystectomy, 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 [employer]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 History Family History Family History: Reviewed,noncontributory to illness Social History Smoker: Non-Smoker Alcohol: Denies ETOH Use Drugs: Denies Drug Use Lives In: Home Constitutional: reports: others (BODY PAIN); denies: chills, diaphoresis, fatigue, fever, malaise, sweats, weakness EENTM: denies: blurred vision, double vision, ear bleeding, ear discharge, ear drainage, ear pain, ear ringing, eye pain, eye redness, hearing loss, mouth pain, mouth swelling, nasal discharge, nose bleeding, nose congestion, nose pain, photophobia, tearing, throat pain, throat swelling, voice changes, others Respiratory: denies: cough, hemoptysis, orthopnea, SOB at rest, shortness of breath, SOB with excertion, stridor, wheezing, others Cardiovascular: denies: chest pain, dizzy spells, diaphoresis, Dyspnea on exertion, edema, irregular heart beat, left arm pain, lightheadedness, palpitations, PND, syncope, others Gastrointestinal: reports: abdominal pain, diarrhea, nausea; denies: abdomen distended, blood streaked bowels, constipated, dysphagia, difficulty swallowing, hematemesis, melena, poor appetite, poor fluid intake, rectal bleeding, rectal pain, vomiting, others Genitourinary: denies: abnormal vagina bleeding, burning, dyspareunia, dysuria, flank pain, frequency, hematuria, incontinence, pain, , vagina discharge, urgency, others Neurological: reports: dizziness; denies: fainting, headache, left sided numbness, left sided weakness, numbness, paresthesia, pre-existing deficit, right sided numbness, right sided weakness, seizure, speech problems, tingling, tremors, weakness, others Musculoskeletal: reports: others (LEG PAIN); denies: back pain, gout, joint pain, joint swelling, muscle pain, muscle stiffness, neck pain Integumetry: denies: bruises, change in color, change in hair/nails, dryness, laceration, lesions, lumps, rash, wounds, others Allergic/Immunocompromised: denies: Difficulty Healing, Frequent Infections, Hives, Itching, others Hematologic/Lymphatic: denies: anemia, blood clots, easy bleeding, easy bruising, swollen glands, others Endocrine: denies: excessive hunger, excessive sweating, excessive thirst, excessive urination, flushing, intolerance to cold, intolerance to heat, unexplained weight gain, unexplained weight loss, others Psychiatric: denies: anxiety, bipolar disorder, depression, hopeless, panic disorder, schizophrenia, sleepless, suicidal, others All Other Systems: Reviewed and Negative Physical Exam General Appearance: Mild Distress, Obese HEENT: Normal ENT Inspection, PERRL/EOMI Neck: Full Range of Motion, Non-Tender, Normal, Normal Inspection Respiratory: Chest Non-Tender, Lungs Clear, No Accessory Muscle Use, No Respiratory Distress, Normal Breath Sounds Cardiovascular: No Edema, No JVD, No Murmur, No Gallop, Normal Peripheral Pulses, Regular Rate/Rhythm Breast Exam: Deferred Gastrointestinal: Epigastric, LLQ, No Organomegaly, No Pulsatile Mass, Normal Bowel Sounds, RLQ, Soft, Tenderness (GENERAL ABD PAIN, NO GUARDING AND REBOUND TENDERNESS. 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 Was a procedure done?: No GI differential Dx Differential Diagnosis: Diverticular disease, Gastritis/PUD, Gastroenteritis, Inflammatory BD, Bacterial, Viral, Other (H. PYLORI, C. DIFFICILE) X-Ray, Labs, Meds, VS Vital Signs Date Time Temp Pulse Resp B/P (MAP) Pulse Ox O2 Delivery O2 Flow Rate FiO2 12/16/24 13:38 98.2 87 20 156/81 (106) 97 98.2 12/16/24 13:38 87 20 97 Room Air 12/16/24 13:09 98.2 87 20 156/81 (106) 97 98.2 Lab Test 12/16/24 13:49 12/16/24 13:30 12/16/24 12:43 Range/Units White Blood Count 9.7 4.4-10.8 10^3/uL Red Blood Count 5.28 H 4.0-5.20 10^6/uL Hemoglobin 13.3 12.2-16.2 g/dL Hematocrit 41.1 36.0-46.0 % Mean Corpuscular Volume 77.8 L 80.0-100.0 fL Mean Corpuscular Hemoglobin 25.2 L 28.0-32.0 pg Mean Corpuscular Hemoglobin Concent 32.4 32.0-36.0 g/dL Red Cell Distribution Width 15.6 H 11.8-14.3 % Platelet Count 610 H 140-450 10^3/uL Mean Platelet Volume 7.1 6.9-10.8 fL Neutrophils (%) (Auto) 74.0 37.0-80.0 % Lymphocytes (%) (Auto) 17.5 10.0-50.0 % Monocytes (%) (Auto) 5.7 0.0-12.0 % Eosinophils (%) (Auto) 1.4 0.0-7.0 % Basophils (%) (Auto) 1.4 0.0-2.0 % Neutrophils # (Auto) 7.2 1.6-8.6 10 ^3/uL Lymphocytes # (Auto) 1.7 0.4-5.4 10 ^3/uL Monocytes # (Auto) 0.6 0-1.3 10 ^3/uL Eosinophils # (Auto) 0.1 0-0.8 10 ^3/uL Basophils # (Auto) 0.1 0-0.2 10 ^3/uL Nucleated Red Blood Cells 0.1 % Sodium Level 142 136-145 mmol/L Potassium Level 3.8 3.5-5.1 mmol/L Chloride Level 109 H 98-107 mmol/L Carbon Dioxide Level 25 20-31 mmol/L Anion Gap 8 5-15 Blood Urea Nitrogen 7 L 9-23 mg/dL Creatinine 0.76 0.550-1.02 mg/dL Glomerular Filtration Rate Calc 89 >90 mL/min BUN/Creatinine Ratio 9.2 L 10.0-20.0 Serum Glucose 127 H 74-106 mg/dL Lactic Acid Level 1.5 0.4-2.0 mmol/L Calcium Level 9.7 8.7-10.4 mg/dL Total Bilirubin 0.2 0.2-1.0 mg/dL Aspartate Amino Transferase (AST) 14 13-40 U/L Alanine Aminotransferase (ALT) 18 7-40 U/L Alkaline Phosphatase 91 46-116 U/L Total Protein 7.3 5.7-8.2 g/dL Albumin 4.4 3.2-4.8 g/dL Lipase 41 12-53 U/L Urine Color Colorless Yellow Urine Clarity Clear Clear Urine pH 5.5 5.0-9.0 Urine Specific [place] 1.003 1.001-1.035 Urine Protein Negative Negative Urine Ketones Negative Negative Urine Blood Negative Negative /uL Urine Nitrite Negative Negative Urine Bilirubin Negative Negative Urine Urobilinogen Normal Negative mg/dL Urine Leukocyte Esterase Negative Negative /uL Urine RBC None seen 0 - 4 /hpf Urine Microscopic WBC < 1 0-5 /HPF Urine Squamous Epithelial Cells Few <5 /hpf Urine Bacteria None seen None Seen /hpf Urine Glucose Normal Normal mg/dL POC Glucose 136 H 70-106 mg/dl Current Medications Medications (Trade) Dose Ordered Sig/Justin Route Start Time Stop Time Status Last Admin Sodium Chloride 1,000 ml @ 1,000 mls/hr Q1H ONCE IV 12/16/24 14:15 12/16/24 15:14 DC 12/16/24 14:07 X-Ray, Labs, Meds, VS Comment EXTERNAL MEDICAL RECORDS REVIEWED: 01/02/23 FOR BRONCHOPNEUMONIA INDEPENDENT HISTORIANS: [NONE] SOCIAL DETERMINANTS OF HEALTH: [NONE] LABS ORDERED: C. DIFF, LACTIC ACID, UA, CBC, CMP, LIPASE REVIEWED AND INTERPRETED RESULTS: NONE IMAGING ORDERED: CT ABD/PEL TREATMENTS ORDERED: TORADOL 30MG IV, PROTONIX 40MG IV, NS 1L IV PROCEDURES PERFORMED: NONE CRITICAL CARE TIME: NONE 64 YEAR OLD FEMALE PRESENTS WITH SEVERE ABDOMINAL PAIN FOR THE PAST 3 DAYS. [facility] WORKED UP FOR POSSIBLE INFECTION AND GASTROENTERITIS. DUE TO PATIENT'S INTRACTABLE ABDOMINAL PAIN, HISTORY OF H. PYLORI INFECTION, AND PATIENT'S PRESENTATION, PATIENT WILL BE ADMITTED TO THE HOSPITAL FOR FURTHER EVALUATION AND TREATMENT. I HAVE DISCUSSED THE PATIENT WITH THE ATTENDING PHYSICIAN DR. SMITH AND HE AGREES WITH THE PATIENT'S PLAN OF CARE AND DISPOSITION. Time of 1ST Reevaluation: 15:03 Reevaluation 1ST: Unchanged Patient Education/Counseling: Diagnosis, Treatment Family Education/Counseling: Diagnosis, Treatment Departure 1 Departure Time of Disposition: 15:00 Impression: Primary Impression: Intractable abdominal pain Additional Impressions: Acute gastroenteritis History of Helicobacter pylori infection Disposition: ADMITTED INPATIENT Condition: Serious Critical Care Note Critical Care Time?: No Stability Stability form required: Yes Unstable for transfer: Requires medication, ED Physician Assesment, Possible rapid decline Heart Score Heart Score: Heart Score Response (Comments) Value History N/A 0 EKG N/A 0 Age N/A 0 Risk Factors N/A 0 Troponin N/A 0 Total 0 I personally scribed for DOUGLAS YAN ([email or web address]) on 12/16/24 at 13:43. Electronically submitted by Howie Eugene ([email or web address]). I personally scribed for DOUGLAS YAN ([email or web address]) on 12/16/24 at 14:54. Electronically submitted by Howie Eugene ([email or web address]). DOUGLAS YAN Dec 16, 2024 13:43
[2024-12-16 13:49] LABS: Urine Blood Negative /uL (Negative); Urine Clarity Clear (Clear); Urine Color Colorless (Yellow); Urine Protein, UAD Negative (Negative); Urine Specific Gravity 1.003 (1.001-1.035); Urine Squamous Epithelial Cell FEW /hpf (<5); Urine Urobilinogen Normal (Negative); Urine WBC < 1 /HPF (0-5); Urine pH 5.5 (5.0-9.0)
[2024-12-16 13:59] LABS: Basophils # (auto) 0.1 10 ^3/uL (0-0.2); Monocytes # (auto) 0.6 10 ^3/uL (0-1.3); Platelet Count (auto) 610 10^3/uL (140-450)
[2024-12-16 14:01] LABS: Basophils % (auto) 1.4 % (0.0-2.0); Eosinophils # (auto) 0.1 10 ^3/uL (0-0.8); Eosinophils % (auto) 1.4 % (0.0-7.0); Hematocrit 41.1 % (36.0-46.0); Hemoglobin 13.3 g/dL (12.2-16.2); Lymphocytes # (auto) 1.7 10 ^3/uL (0.4-5.4); Lymphocytes % (auto) 17.5 % (10.0-50.0); Mean Corpuscular Hemoglobin 25.2 pg (28.0-32.0); Mean Corpuscular Hgb Conc. 32.4 g/dL (32.0-36.0); Mean Corpuscular Volume 77.8 fL (80.0-100.0); Monocytes % (auto) 5.7 % (0.0-12.0); Neutrophils # (auto) 7.2 10 ^3/uL (1.6-8.6); Nucleated Red Blood Cells % 0.1 %; Red Blood Cells 5.28 10^6/uL (4.0-5.20); Red Cell Distribution Width 15.6 % (11.8-14.3); White Blood Cell 9.7 10^3/uL (4.4-10.8)
[2024-12-16] MEDS: SODIUM CHLORIDE 0.9% 1,000 ML IV ONE (14:07)
[2024-12-16 14:20] LABS: Alanine Aminotransferase 18 U/L (7-40); Alkaline Phosphatase 91 U/L (46-116); Anion Gap 8 (5-15); Aspartate Aminotransferase 14 U/L (13-40); BUN/Creatinine Ratio 9.2 (10.0-20.0); Calcium 9.7 mg/dL (8.7-10.4); Carbon Dioxide 25 mmol/L (20-31); Lipase 41 U/L (12-53); Potassium 3.8 mmol/L (3.5-5.1); Sodium 142 mmol/L (136-145); Total Protein 7.3 g/dL (5.7-8.2)
[2024-12-16 14:21] LABS: Albumin 4.4 g/dL (3.2-4.8)
[2024-12-16 14:22] LABS: Bilirubin, Total 0.2 mg/dL (0.2-1.0); Blood Urea Nitrogen 7 mg/dL (9-23); Chloride 109 mmol/L (98-107); Glucose 127 mg/dL (74-106)
[2024-12-16] MEDS: PANTOPRAZOLE 40 MG/10 ML VIAL INJ IV ONE (14:27)
--- NOTE | 2024-12-16 14:41 | DVH ---
Exam: CT CT AB PEL WO CON-NO ORAL OR IV History: GENERAL ABD PAIN WITH DIARRHEA Comparison Study: CT CHST AB PEL WO CON-NO IV/ORAL on DOS: 01/02/23 Technique: Multidetector spiral CT of the abdomen and pelvis was performed from lung bases to pubic symphysis. Imaging was performed without IV contrast. Axial, coronal and sagittal multiplanar reform ats were obtained from the axial data set by the technologist. Radiation dose : Abdomen/Pelvis: CTDIvol 13 mGy, DLP 624 mGy*cm. Findings: Evaluation of solid organs is limited due to lack of intravenous contrast use. Lung Bases: No acute or significant lung base finding. Normal heart size. No pleural or pericardial effusion. Liver: The liver is normal in size. No focal lesions. Gallbladder and biliary Tree: Gallbladder is surgically absent. Spleen: Unremarkable Pancreas: The pancreas is grossly normal in appearance. Adrenal Glands: Unremarkable Kidneys: Kidneys are grossly normal without calculi or hydronephrosis. Bladder: Grossly unremarkable for degree of distention. Bowel: The stomach is grossly normal in appearance. Small bowel and colon are normal in caliber and d istribution. Normal appendix is visualized in the right lower quadrant without findings of appendicit is. Ascites: Absent Lymphadenopathy: No mesenteric, retroperitoneal or periportal lymphadenopathy. Abdominal wall and Mesentery: Unremarkable. Vasculature: The visualized abdominal aorta is normal in size and caliber. Evaluation of abdominal a nd pelvic vessels is limited due to lack of intravenous contrast. Pelvic Organs: Unremarkable Musculoskeletal: No aggressive focal bony lesions, acute fractures or dislocation. IMPRESSION: 1. No acute abdominal or pelvic findings. Radiation optimization: All CT scans at this facility use at least one of these dose optimization stiven hniques: Automated exposure control mA and/or kV adjustment per patient size (includes targeted exams where dose is matched to clinical indication) or iterative reconstruction. HS:Y
[2024-12-16] MEDS: KETOROLAC TROMETH 30 MG/ML 1ML VIAL IV ONE (14:45)
[2024-12-16] MEDS ORDERED: ACETAMINOPHEN 325 MG TAB PO PRN (16:30)
[2024-12-16] MEDS: cefTRIAXone 1GM/50ML D5W 50 ML IV ONE (16:30)
[2024-12-16] MEDS ORDERED: DEXTROSE (50%) 50ML SYRG IV PRN (16:30)
[2024-12-16] MEDS ORDERED: ONDANSETRON HCL 4 MG/2 ML VIAL IV PRN (16:30)
[2024-12-16] MEDS ORDERED: MONT-8 PO (16:57)
[2024-12-16] MEDS ORDERED: MULT-1056 PO (16:57)
[2024-12-16] MEDS: metroNIDAZOLE 500MG/100ML 100 ML IV ONE (17:00)
[2024-12-16] MEDS ORDERED: ALBUTEROL SULF 2.5 MG/0.5ML(0.5%) NEB SOLN NEB PRN (17:15)
[2024-12-16] MEDS ORDERED: IPRATROPIUM BROM 0.5 MG/2.5ML INH SOL NEB PRN (17:15)
--- NOTE | 2024-12-16 17:17 | DVHHP2 ---
History of Present Illness Reason for Visit: Abdominal pain History of Present Illness Denise Trinidad is a 64-year-old female with past medical history of asthma, arthritis, sciatica pain, prediabetic, obesity, chronic back pain, GERD, frequent UTIs, gastritis, cholecystectomy, and who presents to the ED with abdominal pain, nausea, diarrhea, dizziness, body pain, and bilateral leg pain x 1 month. Patient also reports that she has been having burning and frequency while voiding without any hematuria. She reports that she has an appointment with Urology for a cystoscopy on January 31. She also reports bilateral sciatic pain left worse than right which radiates down her leg to her ankles. She reports the abdominal pain is 10/10 intermittent and aching. She also reports that it is worse when she eats. Upon examination she is eating crackers. Patient also reports that she thinks she was dehydrated and after the IV fluids she feels a bit better. Patient also reports the pain in her legs is worse when lying in bed. Patient also reports that the pain in her legs feel like someone is cutting her bones 10/10 pain and intermittent. Patient reports that she went to her PCP and was diagnosed recently with H pylori and given medication to take. Patient also reports of pelvic pain and states that she has frequent UTIs. She states that when she did her 1st test she was positive for UTI then did a repeat and it was negative. She denies any recent trauma or injury, fever, chills, chest pain, shortness of breath, vomiting, lightheadedness, weakness, or wheezing. Pulmonary: Asthma GI: GERD, Gastritis Renal/: UTI Past Medical History Arthritis Prediabetic H pylori Obesity Chronic back pain Past Surgical History: Cholecystectomy, Family History: DM, Hypertension, Other (Mom and dad with diabetes, hypertension, and heart disease) Smoke: No ALCOHOL: none Drugs: None Lives: with Family Domestic Violence: Neg Review of Systems Constitutional: Yes: Other (Dizziness) Gastrointestinal: Nausea, Abdominal Pain, Diarrhea Genitourinary: Dysuria, Frequency Musculoskeletal: other (Body pain and bilateral lower extremity aches along with sciatic pain bilaterally) Allergies: Coded Allergies: Penicillins (Verified Allergy, Unknown, 09/10/24) red rashes Medications Current Medications Medications Dose Ordered Sig/Justin Route Start Time Stop Time Status Last Admin Dose Admin Ceftriaxone Sodium 50 ml @ 100 mls/hr DAILY@09 IV 12/17/24 09:00 UNV Ondansetron HCl 4 mg Q4HP PRN IV 12/16/24 16:30 UNV Acetaminophen 650 mg Q6HP PRN PO 12/16/24 16:30 UNV Diagnostic Test (Pha) 1 strip ACHS 12/16/24 17:00 UNV Insulin Human Regular ACHS SC 12/16/24 17:00 UNV Dextrose 50 ml UD PRN IV 12/16/24 16:30 UNV Pantoprazole Sodium 40 mg DAILY IV 12/17/24 10:00 UNV Empaglifozin 10 mg DAILY PO 12/17/24 10:00 UNV Patient Own Medication 1 tab DAILY PO 12/17/24 10:00 UNV Metronidazole 100 ml @ 100 mls/hr Q8HR IV 12/16/24 22:00 UNV Montelukast Sodium 10 mg DAILY PO 12/17/24 10:00 UNV Multivitamins 1 tab DAILY PO 12/17/24 10:00 UNV Patient Own Medication 4 cap Q8H PO 12/16/24 17:00 UNV Albuterol 2.5 mg Q4HPRN PRN NEB 12/16/24 17:15 UNV Ipratropium [place] 0.5 mg Q4HPRN PRN NEB 12/16/24 17:15 UNV Exam Vital Signs Vital Signs Date Time Temp Pulse Resp B/P (MAP) Pulse Ox O2 Delivery O2 Flow Rate FiO2 12/16/24 17:00 98.0 80 18 157/78 (104) 97 98.0 12/16/24 13:38 Room Air General Appearance: Alert, Oriented X3, Cooperative, No acute distress HEENT: Atraumatic, PERRLA, EOMI, Mucous membr. moist/pink Respiratory: Clear to auscultation, Normal air movement Cardiovascular: Regular rate, Normal S1, Normal S2, No murmurs Abdominal: Soft Neuro: Normal speech, Strength at 5/5 X4 ext, Normal tone, Sensation intact Psych/Mental Status: Mental status NL, Mood NL Labs/Xrays Labs Test 12/16/24 13:49 12/16/24 13:30 12/16/24 12:43 Range/Units White Blood Count 9.7 4.4-10.8 10^3/uL Red Blood Count 5.28 H 4.0-5.20 10^6/uL Hemoglobin 13.3 12.2-16.2 g/dL Hematocrit 41.1 36.0-46.0 % Mean Corpuscular Volume 77.8 L 80.0-100.0 fL Mean Corpuscular Hemoglobin 25.2 L 28.0-32.0 pg Mean Corpuscular Hemoglobin Concent 32.4 32.0-36.0 g/dL Red Cell Distribution Width 15.6 H 11.8-14.3 % Platelet Count 610 H 140-450 10^3/uL Mean Platelet Volume 7.1 6.9-10.8 fL Neutrophils (%) (Auto) 74.0 37.0-80.0 % Lymphocytes (%) (Auto) 17.5 10.0-50.0 % Monocytes (%) (Auto) 5.7 0.0-12.0 % Eosinophils (%) (Auto) 1.4 0.0-7.0 % Basophils (%) (Auto) 1.4 0.0-2.0 % Neutrophils # (Auto) 7.2 1.6-8.6 10 ^3/uL Lymphocytes # (Auto) 1.7 0.4-5.4 10 ^3/uL Monocytes # (Auto) 0.6 0-1.3 10 ^3/uL Eosinophils # (Auto) 0.1 0-0.8 10 ^3/uL Basophils # (Auto) 0.1 0-0.2 10 ^3/uL Nucleated Red Blood Cells 0.1 % Sodium Level 142 136-145 mmol/L Potassium Level 3.8 3.5-5.1 mmol/L Chloride Level 109 H 98-107 mmol/L Carbon Dioxide Level 25 20-31 mmol/L Anion Gap 8 5-15 Blood Urea Nitrogen 7 L 9-23 mg/dL Creatinine 0.76 0.550-1.02 mg/dL Glomerular Filtration Rate Calc 89 >90 mL/min BUN/Creatinine Ratio 9.2 L 10.0-20.0 Serum Glucose 127 H 74-106 mg/dL Lactic Acid Level 1.5 0.4-2.0 mmol/L Calcium Level 9.7 8.7-10.4 mg/dL Total Bilirubin 0.2 0.2-1.0 mg/dL Aspartate Amino Transferase (AST) 14 13-40 U/L Alanine Aminotransferase (ALT) 18 7-40 U/L Alkaline Phosphatase 91 46-116 U/L Total Protein 7.3 5.7-8.2 g/dL Albumin 4.4 3.2-4.8 g/dL Lipase 41 12-53 U/L Urine Color Colorless Yellow Urine Clarity Clear Clear Urine pH 5.5 5.0-9.0 Urine Specific [place] 1.003 1.001-1.035 Urine Protein Negative Negative Urine Ketones Negative Negative Urine Blood Negative Negative /uL Urine Nitrite Negative Negative Urine Bilirubin Negative Negative Urine Urobilinogen Normal Negative mg/dL Urine Leukocyte Esterase Negative Negative /uL Urine RBC None seen 0 - 4 /hpf Urine Microscopic WBC < 1 0-5 /HPF Urine Squamous Epithelial Cells Few <5 /hpf Urine Bacteria None seen None Seen /hpf Urine Glucose Normal Normal mg/dL POC Glucose 136 H 70-106 mg/dl Exam: CT CT AB PEL WO CON-NO ORAL OR IV History: GENERAL ABD PAIN WITH DIARRHEA Comparison Study: CT CHST AB PEL WO CON-NO IV/ORAL on DOS: 01/02/23 Technique: Multidetector spiral CT of the abdomen and pelvis was performed from lung bases to pubic symphysis. Imaging was performed without IV contrast. Axial, coronal and sagittal multiplanar reformats were obtained from the axial data set by the technologist. Radiation dose : Abdomen/Pelvis: CTDIvol 13 mGy, DLP 624 mGy*cm. Findings: Evaluation of solid organs is limited due to lack of intravenous contrast use. Lung Bases: No acute or significant lung base finding. Normal heart size. No pleural or pericardial effusion. Liver: The liver is normal in size. No focal lesions. Gallbladder and biliary Tree: Gallbladder is surgically absent. Spleen: Unremarkable Pancreas: The pancreas is grossly normal in appearance. Adrenal Glands: Unremarkable Kidneys: Kidneys are grossly normal without calculi or hydronephrosis. Bladder: Grossly unremarkable for degree of distention. Bowel: The stomach is grossly normal in appearance. Small bowel and colon are normal in caliber and distribution. Normal appendix is visualized in the right lower quadrant without findings of appendicitis. Ascites: Absent Lymphadenopathy: No mesenteric, retroperitoneal or periportal lymphadenopathy. Abdominal wall and Mesentery: Unremarkable. Vasculature: The visualized abdominal aorta is normal in size and caliber. Evaluation of abdominal and pelvic vessels is limited due to lack of intravenous contrast. Pelvic Organs: Unremarkable Musculoskeletal: No aggressive focal bony lesions, acute fractures or dislocation. IMPRESSION: 1. No acute abdominal or pelvic findings. Assessment/Plan Assessment/Plan Assessment Intractable abdominal pain likely gastroenteritis Dysuria ? UTI Colitis Obesity History of H pylori on to [place] History of arthritis History of sciatica History of asthma History of prediabetes History of chronic back pain History of GERD History of UTIs History of gastritis History of cholecystectomy History of Plan Admit to [facility] Stool C diff culture UA Antiemetics Pain management PPIs NS 1 L given ED Lactic level CT abdomen and pelvis noted Lipase Hemoglobin A1c ISS and Accu-Cheks IV antibiotics - ceftriaxone +vFlagyl SCDs Home medications reconciled Discussed plan of care with patient and nurse Counseled patient on lifestyle modifications, diet, and exercise Plan discussed with: Patient My Orders Orders - JACQUELINE SOLIS [employer] Procedure Category Date Status Time Ceftriaxone 1gm/50ml PHA 12/17/24 Logged D5w (Rocephin) 09:00 Ceftriaxone 1gm/50ml PHA 12/16/24 Logged D5w (Rocephin) 16:30 Admit ADMIT 12/16/24 Transmitted 16:29 Allergies TARIK 12/16/24 In Process 16:29 Code Status CODE 12/16/24 Transmitted 16:29 Full Liq Diet DIET 12/16/24 Transmitted Dinner Ondansetron Hcl PHA 12/16/24 Logged (Zofran) 16:30 Complete Blood Count LAB 12/17/24 Verified 04:00 Comprehensive LAB 12/17/24 Verified Metabolic Panel 04:00 Acetaminophen Tablet PHA 12/16/24 Logged (Tylenol Tablet) 16:30 Sequential TARIK 12/16/24 In Process Compression Device Glucose Blood PHA 12/16/24 Logged (Accu-Chek Comfort 17:00 Insulin R (Human) PHA 12/16/24 Logged (Insulin R) 17:00 Dextrose 50% Syringe PHA 12/16/24 Logged 16:30 Hemoglobin A1c LAB 12/16/24 Logged 16:29 Pantoprazole PHA 12/17/24 Logged (Protonix) 10:00 Empagliflozin PHA 12/17/24 Logged (Jardiance) 10:00 (Nf) Amlodipine PHA 12/17/24 Logged Besylate 10:00 Metronidazole PHA 12/16/24 Logged 500mg/100ml (Flagyl 22:00 Metronidazole PHA 12/16/24 Logged 500mg/100ml (Flagyl 17:00 Montelukast Tablet PHA 12/17/24 Logged (Singulair Tablet) 10:00 Multiple Vitamin PHA 12/17/24 Logged Tablet (Mvi Tab) 10:00 (NF) PHA 12/16/24 Logged Mmcaohfcdfh-Dqdpgswzb-Qzgyfgew 17:00 Albuterol Medneb PHA 12/16/24 Transmitted (Ventolin Medneb) 17:15 Ipratropium Medneb PHA 12/16/24 Transmitted (Atrovent Medneb) 17:15 Date of Service: Dec 16, 2024 Billing Provider: JACQUELINE SOLIS Common Visit Codes: 23423-[id number] INP/OBS CARE (HIGH) JACQUELINE SOLIS Dec 16, 2024 17:16
[2024-12-16] MEDS: InsuLIN REG 1unit/0.01ml Soln (100units/ml) SC SCH (17:35)
[2024-12-16] MEDS: ACCU-CHEK COMFORT CURVE STRIP VI SCH (17:35)
[2024-12-16] MEDS: SODIUM CHLORIDE 0.9% 1,000 ML IV SCH (20:14)
[2024-12-16] MEDS: KETOROLAC TROMETH 60MG/2ML VIAL IM ONE (20:14)
[2024-12-16] MEDS ORDERED: metroNIDAZOLE 500MG/100ML 100 ML IV SCH (22:00)
[2024-12-17] VITALS (8 sets, daily range): BP systolic 119–156; BP diastolic 68–75; PULSE 77–88; RESP 17–18; TEMP 97.3–98; O2SAT 95–99
[2024-12-17 06:03] LABS: Basophils # (auto) 0.1 10 ^3/uL (0-0.2); Basophils % (auto) 0.7 % (0.0-2.0); Eosinophils # (auto) 0.2 10 ^3/uL (0-0.8); Eosinophils % (auto) 2.5 % (0.0-7.0); Hematocrit 35.7 % (36.0-46.0); Hemoglobin 11.8 g/dL (12.2-16.2); Lymphocytes # (auto) 2.3 10 ^3/uL (0.4-5.4); Lymphocytes % (auto) 24.1 % (10.0-50.0); Mean Corpuscular Hemoglobin 25.9 pg (28.0-32.0); Mean Corpuscular Hgb Conc. 33.2 g/dL (32.0-36.0); Mean Corpuscular Volume 78.1 fL (80.0-100.0); Monocytes # (auto) 0.6 10 ^3/uL (0-1.3); Monocytes % (auto) 6.1 % (0.0-12.0); Neutrophils # (auto) 6.3 10 ^3/uL (1.6-8.6); Neutrophils % (auto) 66.6 % (37.0-80.0); Nucleated Red Blood Cells % 0.1 %; Platelet Count (auto) 508 10^3/uL (140-450); Red Blood Cells 4.57 10^6/uL (4.0-5.20); Red Cell Distribution Width 15.2 % (11.8-14.3); White Blood Cell 9.5 10^3/uL (4.4-10.8)
[2024-12-17 06:32] LABS: Potassium 3.5 mmol/L (3.5-5.1); Sodium 143 mmol/L (136-145)
[2024-12-17 06:34] LABS: Anion Gap 10 (5-15); Carbon Dioxide 21 mmol/L (20-31)
[2024-12-17 06:35] LABS: Calcium 8.9 mg/dL (8.7-10.4)
[2024-12-17 06:40] LABS: Alkaline Phosphatase 77 U/L (46-116); BUN/Creatinine Ratio 8.5 (10.0-20.0); Blood Urea Nitrogen 6 mg/dL (9-23); Chloride 112 mmol/L (98-107); Glucose 108 mg/dL (74-106); Total Protein 6.1 g/dL (5.7-8.2)
[2024-12-17 06:41] LABS: Alanine Aminotransferase 15 U/L (7-40); Albumin 3.7 g/dL (3.2-4.8)
[2024-12-17 06:43] LABS: Aspartate Aminotransferase 12 U/L (13-40); Bilirubin, Total 0.2 mg/dL (0.2-1.0)
[2024-12-17] MEDS ORDERED: cefTRIAXone 1GM/50ML D5W 50 ML IV SCH (09:00)
[2024-12-17] MEDS: amLODIPine BESYLATE 5 MG TAB PO SCH (09:05)
[2024-12-17] MEDS: MULTIPLE VITAMIN TAB PO SCH (09:23)
[2024-12-17] MEDS: MONTELUKAST SODIUM 10 MG TAB PO SCH (09:23)
[2024-12-17] MEDS: PANTOPRAZOLE 40 MG/10 ML VIAL INJ IV SCH (09:23)
[2024-12-17] MEDS ORDERED: EMPAGLIFLOZIN 10 MG TAB PO SCH (10:00)
[2024-12-17] MEDS: DICYCLOMINE HCL 10 MG CAP PO SCH (12:38)
--- NOTE | 2024-12-17 16:33 | DVHDSRES ---
Discharge Summary Date of Admission Resident Creating Document: SEJAL RODRIGEZ RESIDENT Dec 16, 2024 at 16:29 Date of Discharge: Dec 17, 2024 Admitting Diagnosis Gastroenteritis Labs/Diagnostic Data: Laboratory Results Test 12/17/24 11:04 12/17/24 05:26 12/16/24 13:49 12/16/24 13:30 POC Glucose 133 mg/dl (70-106) White Blood Count 9.5 10^3/uL (4.4-10.8) Red Blood Count 4.57 10^6/uL (4.0-5.20) Hemoglobin 11.8 g/dL (12.2-16.2) Hematocrit 35.7 % (36.0-46.0) Mean Corpuscular Volume 78.1 fL (80.0-100.0) Mean Corpuscular Hemoglobin 25.9 pg (28.0-32.0) Mean Corpuscular Hemoglobin Concent 33.2 g/dL (32.0-36.0) Red Cell Distribution Width 15.2 % (11.8-14.3) Platelet Count 508 10^3/uL (140-450) Mean Platelet Volume 6.9 fL (6.9-10.8) Neutrophils (%) (Auto) 66.6 % (37.0-80.0) Lymphocytes (%) (Auto) 24.1 % (10.0-50.0) Monocytes (%) (Auto) 6.1 % (0.0-12.0) Eosinophils (%) (Auto) 2.5 % (0.0-7.0) Basophils (%) (Auto) 0.7 % (0.0-2.0) Neutrophils # (Auto) 6.3 10 ^3/uL (1.6-8.6) Lymphocytes # (Auto) 2.3 10 ^3/uL (0.4-5.4) Monocytes # (Auto) 0.6 10 ^3/uL (0-1.3) Eosinophils # (Auto) 0.2 10 ^3/uL (0-0.8) Basophils # (Auto) 0.1 10 ^3/uL (0-0.2) Nucleated Red Blood Cells 0.1 % Sodium Level 143 mmol/L (136-145) Potassium Level 3.5 mmol/L (3.5-5.1) Chloride Level 112 mmol/L (98-107) Carbon Dioxide Level 21 mmol/L (20-31) Anion Gap 10 (5-15) Blood Urea Nitrogen 6 mg/dL (9-23) Creatinine 0.71 mg/dL (0.550-1.02) Glomerular Filtration Rate Calc 96 mL/min (>90) BUN/Creatinine Ratio 8.5 (10.0-20.0) Serum Glucose 108 mg/dL (74-106) Calcium Level 8.9 mg/dL (8.7-10.4) Total Bilirubin 0.2 mg/dL (0.2-1.0) Aspartate Amino Transferase (AST) 12 U/L (13-40) Alanine Aminotransferase (ALT) 15 U/L (7-40) Alkaline Phosphatase 77 U/L (46-116) Total Protein 6.1 g/dL (5.7-8.2) Albumin 3.7 g/dL (3.2-4.8) Hemoglobin A1c < 3.8 % A1C (<5.7) Lactic Acid Level 1.5 mmol/L (0.4-2.0) Lipase 41 U/L (12-53) Urine Color Colorless (Yellow) Urine Clarity Clear (Clear) Urine pH 5.5 (5.0-9.0) Urine Specific [place] 1.003 (1.001-1.035) Urine Protein Negative (Negative) Urine Ketones Negative (Negative) Urine Blood Negative /uL (Negative) Urine Nitrite Negative (Negative) Urine Bilirubin Negative (Negative) Urine Urobilinogen Normal mg/dL (Negative) Urine Leukocyte Esterase Negative /uL (Negative) Urine RBC None seen /hpf (0 - 4) Urine Microscopic WBC < 1 /HPF (0-5) Urine Squamous Epithelial Cells Few /hpf (<5) Urine Bacteria None seen /hpf (None Seen) Urine Glucose Normal mg/dL (Normal) Other Laboratory Tests 12/17/24 05:26 Brief Hx & Hospital Course: This is a 64-year-old female who presents to the ED with abdominal pain, nausea, diarrhea, dizziness, body pain, and bilateral leg pain x 1 month. PMH: Asthma, GERD, Gastritis, UTI, Arthritis , Prediabetic , H pylori, Obesity , Chronic back pain Past Surgical History: Cholecystectomy, Family History: DM, Hypertension, Other (Mom and dad with diabetes, hypertension, and heart disease) Social history: Smoke: No. ALCOHOL: none. Drugs: None. Lives: with Family Patient also reports that she has been having burning and frequency while voiding without any hematuria. She reports that she has an appointment with Urology for a cystoscopy on January 31. She also reports bilateral sciatic pain left worse than right which radiates down her leg to her ankles. She reports the abdominal pain is 10/10 intermittent and aching. She also reports that it is worse when she eats. Upon examination she is eating crackers. Patient also reports that she thinks she was dehydrated and after the IV fluids she feels a bit better. Patient also reports the pain in her legs is worse when lying in bed. She also reports that the pain in her legs feel like someone is cutting her bones 10/10 pain and intermittent. She reports that she went to her PCP and was diagnosed recently with H pylori and given medication to take. She also reports of pelvic pain and states that she has frequent UTIs. She states that when she did her 1st test she was positive for UTI then did a repeat and it was negative. She denies any recent trauma or injury, fever, chills, chest pain, shortness of breath, vomiting, lightheadedness, weakness, or wheezing. On my assessment, patient states feeling better than on admission, she stated that her abdominal pain was mild now, and the pain on her legs were improving. Vital signs were unremarkable. Patient has had a CT of the abdomen performed which was unremarkable. Her blood work was also within normal limits. Patient tolerated diet, she was ambulatory, with the assistance. She currently states feeling well, denies any significant chest pain, shortness of breath, dizziness, nausea, vomiting. Physical examination as below: General: Awake, alert, comfortable appearing, in no acute distress. HEENT: Head is normocephalic and atraumatic. Pupils are equal, round, and reactive to light. Extraocular muscles are intact. No nasal discharge. No facial trauma. Intraoral exam shows moist mucous membranes with no tonsillar enlargement or exudate. Neck: Supple with no cervical lymphadenopathy No meningismus. No goiter. Heart: Regular rate without murmur, rub, or gallop. Lungs: Equal breath sounds bilaterally with no wheezing, rales, or rhonchi. There is no chest wall tenderness or instability. Abdomen: No external sign of injury. Bowel sounds are present. Abdomen is soft, nontender. No rebound, no guarding, no rigidity. There are no palpable masses. There is no flank pain on exam. Extremities: Strong peripheral pulses. There is no clubbing, no cyanosis, and no edema. Skin: No rash. Neurologic: Cranial nerves II-XII intact without motor, sensory, or cerebellar deficit, no asterixis. Patient will be discharged home on continue medications as prescribed. She will continue taking her medication for H pylori infection, omeprazole/amoxicillin/rifabutin. Patient verbalized understanding and agree with the DC plan, we spent over 30 minute explaining the plan. Case was discussed with Dr. Peterson. Operations or Procedures [place] [id number] Ph: [phone] DIAGNOSTIC IMAGING Diagnostic Imaging Report : [id number] Signed PATIENT: NIRMALA MENDEZ ACCT: [id number] UNIT: [id number] : 1960 LOC: ER ROOM / BED: / AGE / SEX: 64 / F ADM STATUS: REG ER SERVICE 1330 ORDERING PHYSICIAN: DOUGLAS YAN PROCEDURE(s): ABPL - CT AB PEL WO CON-NO ORAL OR IV REASON: GENERAL ABD PAIN WITH DIARRHEA ORDER NUMBER(s): [id number], ACCESSION NUMBER(s): [id number] Exam: CT CT AB PEL WO CON-NO ORAL OR IV History: GENERAL ABD PAIN WITH DIARRHEA Comparison Study: CT CHST AB PEL WO CON-NO IV/ORAL on DOS: 01/02/23 Technique: Multidetector spiral CT of the abdomen and pelvis was performed from lung bases to pubic symphysis. Imaging was performed without IV contrast. Axial, coronal and sagittal multiplanar reformats were obtained from the axial data set by the technologist. Radiation dose : Abdomen/Pelvis: CTDIvol 13 mGy, DLP 624 mGy*cm. Findings: Evaluation of solid organs is limited due to lack of intravenous contrast use. Lung Bases: No acute or significant lung base finding. Normal heart size. No pleural or pericardial effusion. Liver: The liver is normal in size. No focal lesions. Gallbladder and biliary Tree: Gallbladder is surgically absent. Spleen: Unremarkable Pancreas: The pancreas is grossly normal in appearance. Adrenal Glands: Unremarkable Kidneys: Kidneys are grossly normal without calculi or hydronephrosis. Bladder: Grossly unremarkable for degree of distention. Bowel: The stomach is grossly normal in appearance. Small bowel and colon are normal in caliber and distribution. Normal appendix is visualized in the right lower quadrant without findings of appendicitis. Ascites: Absent Lymphadenopathy: No mesenteric, retroperitoneal or periportal lymphadenopathy. Abdominal wall and Mesentery: Unremarkable. Vasculature: The visualized abdominal aorta is normal in size and caliber. Evaluation of abdominal and pelvic vessels is limited due to lack of intravenous contrast. Pelvic Organs: Unremarkable Musculoskeletal: No aggressive focal bony lesions, acute fractures or dislocation. IMPRESSION: 1. No acute abdominal or pelvic findings. Radiation optimization: All CT scans at this facility use at least one of these dose optimization techniques: Automated exposure control mA and/or kV adjustment per patient size (includes targeted exams where dose is matched to clinical indication) or iterative reconstruction. HS:Y ATED BY: MOSES TURNER MD DICTATED DATE/TIME: 12/16/24 1439 SIGNED BY: MOSES TURNER MD SIGNED DATE/TIME: 12/16/24 1439 CC: Condition at Discharge: Guarded Final Diagnosis/Problems List Intractable abdominal pain likely viral gastroenteritis, H. pylori Obesity Acute H pylori on to [place] History of arthritis History of sciatica History of asthma History of prediabetes History of chronic back pain History of GERD History of UTIs History of gastritis History of cholecystectomy History of Discharge Disposition: Home Discharge Instruct/Medications Diet: Regular Activity: No Restrictions, As Tolerated Follow Up/Referral: fu with pcp within 1 week Medications: continue home meds as prescribed Discharge Statement: "Patient was advised to return to the ER or call 911 if any headaches, dizziness, shortness of breath, chest pain, abdominal pain, bleeding, fevers, or worsening of medical condition. Patient was counseled about treatment plan, medications, possible side effects, patientverbalized understanding. All questions were answered to the best of my ability. This discharge took greater then 30 minutes in planning, reviewing documentation, counseling the patient, and discussing with other team members." ASSESSMENT ASSESSMENT Assessment viral gastroenteritis Date of Service: Dec 17, 2024 Billing Provider: SAW PETERSON MD Common Visit Codes: 39524-FBF/OBS DISCH DAY >30min SEJAL RODRIGEZ RESIDENT Dec 17, 2024 16:33 SAW PETERSON MD Dec 17, 2024 18:57
== END 2024-12-17 16:40 | disposition home or self-care (01) | DRG 248 ==
LOC: ER 12:30 → OVERFLOW 16:29 → WEST WING 21:04
PROVIDERS: ADMIT Internal Medicine; ATTEND Internal Medicine
DX: A04.8 Other specified bacterial intestinal infections (principal); A08.4 Viral intestinal infection, unspecified; E11.9 Type 2 diabetes mellitus without complications; J45.909 Unspecified asthma, uncomplicated; K21.9 Gastro-esophageal reflux disease without esophagitis; N39.0 Urinary tract infection, site not specified; M54.32 Sciatica, left side; M54.31 Sciatica, right side; I10 Essential (primary) hypertension; E86.0 Dehydration; G89.29 Other chronic pain; Z98.891 History of uterine scar from previous surgery; Z90.49 Acquired absence of other specified parts of digestive tract; Z88.0 Allergy status to penicillin; Z87.440 Personal history of urinary (tract) infections; Z86.19 Personal history of other infectious and parasitic diseases; Z83.3 Family history of diabetes mellitus; Z82.49 Family history of ischemic heart disease and other diseases of the circulatory system; Z79.899 Other long term (current) drug therapy
CPT/HCPCS: 36415; 74176; 80053; 81001; 82962; 83036; 83605; 83690; 85025; 87493; 96360; G0378; J1885; J2470; J3490

== ENCOUNTER 2024-12-28 11:09 | Inpatient (IN) | payer MEDICAID ==
[~2024-12-28] VITALS: Ht 152.4 cm; Wt 86.4 kg
[~2024-12-28 11:09] MED LIST changes: +CALCTAB49 PO; +MONT-8 PO; +MULT-1056 PO
--- NOTE | 2024-12-28 11:33 | ED.PDOC ---
Musculoskeletal HPI Comments HPI: 64 y/o F, with PMHX of DM and HTN presents to the ED for CC of left knee pain. Patient states, she has been experiencing left knee pain since, 1100 yesterday morning (12/27/24). Patient relays, that pain feel sharp in sensation and has been unable to move her left extremity or bear weight onto it. Patient denies i njury, trauma, or fall. No other symptoms or modifying factors at this time. Patient says he is unable to ambulate or bear any weight on the left lower extremity. Denies any fall or trauma or injury. VITALS: Temp: 98.8 BP:163/58 HR:42 RR:18 SPO2:98 % Past medical history: DM, HTN, ASTHMA, ARTHRITIS, SCIATIC PAIN, OBESITY, GASTRITIS, UTI'S Past surgical history: LEFT GREAT TOE AMPUTATION, RIGHT FOOT AMPUTATION, CHOLECYSTECTOMY, Allergies: Penicillin, Morphine HPI: Poor Historian. REVIEW OF SYSTEMS: CONSTITUTIONAL: Denies acute: fever, diaphoresis, chills, generalized weakness. HEAD: Denies acute: headache, photophobia Eyes: Denies acute: Double vision, vision loss, eye pain, eye discharge. EARS: Denies acute: tinnitus, hearing loss, ear discharge, ear pain, THROAT: Denies acute: sore throat, swelling, difficulty swallowing , pain with swallowing, change in voice. NECK: Denies acute: neck pain, neck swelling, stiff neck. HEART: Denies acute : chest pain, palpitations, LUNGS: Denies acute: SOB, wheezing, cough, hemoptysis ABDOMEN: Denies acute: abdominal pain, Nausea, Vomiting, diarrhea, melena , hematemesis, hematochezia SKIN: Denies acute: rash, redness, lesions, itchiness. EXTREMITIES: Denies acute: calf pain, numbness, tingling, weakness, Denies acute: Low back pain. Neuro: Denies acute: focal neurological deficit, motor or sensory focal neurological deficit, tremors, seizure like activity, confusion, dizziness, change in mental status, loss of bowel or bladder function, cauda equina like symptoms. : Denies acute: dysuria, hematuria, flank pain, increase in urinary frequency. PSYCH: Denies acute: hallucination, suicidal ideation, homicidal ideation. FEMALE: Denies acute: abnormal vaginal bleeding, foul odor, unusual discharge. PHYSICAL EXAM: General: ---ryid-[id number]-[id number]-----acute distress, awake and alert. Head: normocephalic, atraumatic. Neck: supple, trachea is midline, no swelling. Throat: Normal phonation. Eyes:, no erythema, no purulent discharge, no proptosis, no icterus. Heart: regular rate, regular rhythm, no significant murmur appreciated. Lungs: no apparent respiratory distress, Able to speak in full sentences. No wheezing, no rhonchi, no crackles. No stridors Clear to auscultation bilaterally. Abdomen: non tender to palpation, non distended, soft, no guarding, no rebound, + bowel sounds. Neuro: Awake, Alert, oriented to name, self, situation, follows commands GCS=15. Speech is normal. Skin: no petechia, no purpura, no cyanosis, non-pale, not jaundice. Lower extremities: --no - Pitting edema no deformity, no focal swelling, Right posterior calf tenderness to palpation. Left knee posterior lateral region. Unable to flex the knee. Severe pain with any knee flexion. Patient is neurovascularly intact in bilateral lower extremities. Pedal pulses palpable. Sensory and motor are present. Noted chronic right midfoot amputation. Evaluation of the area of the pain and complaint. There is no erythema or noted deformity or swelling. Makes eye contact. moves all four extremities. Limited range of motion of left knee secondary to pain. Face: no apparent facial droop. Pedal pulses are palpable. ED COURSE: Chief Complaint: Lower Extremity Time Seen by MD: 11:26 Primary Care Provider: ULISES Reviewed Notes: Nurses Notes, Finance Attorney Notes, Allergies Allergies: Coded Allergies: Morphine (Verified Allergy, Unknown, 12/28/24) Penicillins (Verified Allergy, Unknown, 09/10/24) red rashes Home Meds Active Scripts Albuterol Sulfate (VENTOLIN MDI) 90 Mcg Ih, 90 MCG IN BID for 30 Days, #30 INH Prov:SAW MONTGOMERY MD 01/04/23 Reported Medications Calcium Carbonate (Calcium 600) 600 Mg Tab, 1 TAB PO DAILY for 30 Days, #30 12/29/24 Montelukast Sodium (MONTELUKAST SODIUM) 10 Mg Tab, 1 TAB PO DAILY for 30 Days, #30 12/16/24 Multiple Vitamin (Multivitamin) 1 Tab Tab, 1 TAB PO DAILY for 30 Days, #30 12/16/24 Empagliflozin (Jardiance) 10 Mg Tab, 1 TAB PO DAILY for 30 Days, #30 09/10/24 Amlodipine Besylate (Amlodipine Besylate) 10 Mg Tab, 1 TAB PO DAILY 01/02/23 Information Source: Patient, Emergency Med Personnel Mode of Arrival: EMS Location: Left, Right (calf) Extremity Location: Knee Timing: Hours Prehospital treatment: None Severity: Moderate Able to Move Extremity: Yes Bear Weight: Limited Pain: Moderate Mechanism: Spontaneous Circumstances: Spontaneous Onset of Symptoms: Spontaneous Symptoms: Pain DVT Risk Factors: NONE Last Tetanus: Unknown Associated signs and symptoms: Knee pain Was a procedure done? Was a procedure done?: No Differential Diagnosis EXT Differential Diagnosis: Cellulitis, Deep Vein Thrombosis, Compartment Syndrome, Fracture, Sprain, Dislocation, Gout, Contusion, Strain, Rheumatoid, Septic, Neurovascular injury, Arthritis, Bursitis, Other (With the fusion, ligamental injury hemarthrosis) X-Ray, Labs, Meds, VS Vital Signs Date Time Temp Pulse Resp B/P (MAP) Pulse Ox O2 Delivery O2 Flow Rate FiO2 12/28/24 14:00 79 22 149/80 (103) 95 12/28/24 12:00 80 12/28/24 12:00 153 12/28/24 11:45 Room Air* 0 21 12/28/24 11:45 81 16 153/81 (105) 97 12/28/24 11:29 98.8 72 18 163/58 (93) 98 98.8 Lab Test 12/28/24 12:32 12/28/24 12:00 Range/Units Urine Color Colorless Yellow Urine Clarity Clear Clear Urine pH 6.0 5.0-9.0 Urine Specific [place] 1.005 1.001-1.035 Urine Protein Negative Negative Urine Ketones Negative Negative Urine Blood 2+ H Negative /uL Urine Nitrite Negative Negative Urine Bilirubin Negative Negative Urine Urobilinogen Normal Negative mg/dL Urine Leukocyte Esterase 2+ Negative /uL Urine RBC 2 0 - 4 /hpf Urine WBC Clumps Present None Seen /hpf Urine Microscopic WBC 44 H 0-5 /HPF Urine Squamous Epithelial Cells None seen <5 /hpf Urine Bacteria None seen None Seen /hpf Urine Glucose Normal Normal mg/dL White Blood Count 14.2 H 4.4-10.8 10^3/uL Red Blood Count 5.01 4.0-5.20 10^6/uL Hemoglobin 13.1 12.2-16.2 g/dL Hematocrit 39.5 36.0-46.0 % Mean Corpuscular Volume 78.9 L 80.0-100.0 fL Mean Corpuscular Hemoglobin 26.1 L 28.0-32.0 pg Mean Corpuscular Hemoglobin Concent 33.1 32.0-36.0 g/dL Red Cell Distribution Width 15.6 H 11.8-14.3 % Platelet Count 645 H 140-450 10^3/uL Mean Platelet Volume 6.8 L 6.9-10.8 fL Neutrophils (%) (Auto) 79.1 37.0-80.0 % Lymphocytes (%) (Auto) 13.7 10.0-50.0 % Monocytes (%) (Auto) 5.6 0.0-12.0 % Eosinophils (%) (Auto) 0.7 0.0-7.0 % Basophils (%) (Auto) 0.9 0.0-2.0 % Neutrophils # (Auto) 11.2 H 1.6-8.6 10 ^3/uL Lymphocytes # (Auto) 1.9 0.4-5.4 10 ^3/uL Monocytes # (Auto) 0.8 0-1.3 10 ^3/uL Eosinophils # (Auto) 0.1 0-0.8 10 ^3/uL Basophils # (Auto) 0.1 0-0.2 10 ^3/uL Nucleated Red Blood Cells 0.1 % Erythrocyte Sedimentation Rate 20 0-20 mm/hr Sodium Level 140 136-145 mmol/L Potassium Level 3.8 3.5-5.1 mmol/L Chloride Level 108 H 98-107 mmol/L Carbon Dioxide Level 23 20-31 mmol/L Anion Gap 9 5-15 Blood Urea Nitrogen 8 L 9-23 mg/dL Creatinine 0.84 0.550-1.02 mg/dL Glomerular Filtration Rate Calc 79 >90 mL/min BUN/Creatinine Ratio 9.5 L 10.0-20.0 Serum Glucose 99 74-106 mg/dL Calcium Level 9.8 8.7-10.4 mg/dL Total Bilirubin 0.2 0.2-1.0 mg/dL Aspartate Amino Transferase (AST) 17 13-40 U/L Alanine Aminotransferase (ALT) 29 7-40 U/L Alkaline Phosphatase 93 46-116 U/L C-Reactive Protein High Sensitivity 0.75 <1.0 mg/dL Total Protein 7.6 5.7-8.2 g/dL Albumin 4.6 3.2-4.8 g/dL Thyroid Stimulating Hormone (TSH) 3.49 0.55-4.78 uIU/mL Microbiology Date/Time Source Procedure Growth Status 12/28/24 12:32 Voided Urine Urine Culture - Final Complete [place] [address] Ph: [phone] DIAGNOSTIC IMAGING Diagnostic Imaging Report : [id number] Signed PATIENT: NIRMALA MENDEZ ACCT: [id number] UNIT: [id number] : 1960 LOC: ER ROOM / BED: / AGE / SEX: 64 / F ADM STATUS: REG ER SERVICE 1127 ORDERING PHYSICIAN: BEATRICE PAGE DO PROCEDURE(s): BLDVT - BiLat Lower DVT REASON: R calf pain, L knee pain ORDER NUMBER(s): [id number], ACCESSION NUMBER(s): [id number] BILATERAL LOWER EXTREMITY VENOUS DOPPLER CLINICAL HISTORY: R calf pain, L knee pain Technique: Duplex Doppler evaluation of the deep venous systems of both lower extremities from the common femoral veins to the popliteal veins including color Doppler and spectral/pulsed waveform analysis was performed. COMPARISON: None FINDINGS: The right and left common femoral, superficial femoral, popliteal, posterior tibial veins and trifurcations appear patent with normal augmentation, phasic ity, compressibility and color-flow. IMPRESSION: 1. There is no sonographic evidence for DVT in the visualized lower extremity veins. HS:Y ATED BY: ELIAZAR MCDOWELL MD DICTATED DATE/TIME: 12/28/24 1220 SIGNED BY: ELIAZAR MCDOWELL MD SIGNED DATE/TIME: 12/28/24 1220 CC: [address], [place], [place] - [address] Ph: [phone] DIAGNOSTIC IMAGING Diagnostic Imaging Report : [id number] Signed PATIENT: NIRMALA MENDEZ ACCT: [id number] UNIT: [id number] : 1960 LOC: ER ROOM / BED: / AGE / SEX: 64 / F ADM STATUS: REG ER SERVICE 1128 ORDERING PHYSICIAN: BEATRICE PAGE DO PROCEDURE(s): LKNCT - CT L KNEE WO CONTRAST REASON: L knee pain, unable to flex ORDER NUMBER(s): [id number], ACCESSION NUMBER(s): [id number] CLINICAL INDICATION: 64 years old, Female; L knee pain, unable to flex. TECHNIQUE: Noncontrast CT of the left knee was performed. Sagittal and coronal reformatted images are provided. COMPARISON: None. CT Dose: CTDI volume is 7.8 mGy. Dose-length product is 498 mGy*cm FINDINGS: No fracture or dislocation. Medial compartment joint space narrowing. There are tricompartment osteophytes. Subchondral cysts noted in the inner aspect of the lateral femoral trochlea. Tricompartment osteophytes. Osteophyte projects into the central joint space of the medial tibial eminence. There is a knee joint effusion. There are multiple metallic densities for example caudal and medial to the inferior aspect of the patella which measures 8 mm. Additional densities are noted in the soft tissues of the anterior muscle compartment, subcutaneous tissues of the deep inner thigh and more superficial soft tissues in the leg [id number]. IMPRESSION: 1. No acute fracture or dislocation. 2. Multiple metallic densities in the soft tissues compatible with foreign bodies. 3. Degenerative changes in the knee. All CT scans at this medical facility are performed using dose modulation techniques as appropriate to a performed exam including the following: Automated exposure control was utilized; adjustment of the MA and/or KV according to patient size; and use of iterative reconstruction technique. HS:Y ATED BY: SWAPNIL LYNCH MD DICTATED DATE/TIME: 12/28/241258 SIGNED BY: SWAPNIL LYNCH MD SIGNED DATE/TIME: 12/28/241258 CC: Time of 1ST Reevaluation: 11:56 Reevaluation 1ST: Unchanged Patient Education/Counseling: Diagnosis, Treatment Family Education/Counseling: Other Comments Patient presented with the above HPI.--left knee pain----workup was initiated. patient was found with the above mentioned diagnosis. the following medications were ordered: please refer to order lists of meds and tests obtained by myself Dr. Page. Patient ED course and VS have been stabilized. Patient has been reassessed in the ED and remained in a stable condition. Pertinent incidental findings were discussed with the patient and/or family. Patient/family voices understanding and is agreeable with plan. Patient has been observed in the ED adequate length of time to insure improvement/stability. Escalation of care considered: Consideration of escalation to observation or admission Patient unable to ambulate or move her knee. Patient is in severe pain with movement of the left knee joint. Patient will need orthopedic evaluation. Patient is might also need an MRI. Patient was ADMITTED to the medicine team for further evaluation and treatment of their presentation. All the reports of any imaging studies that were ordered by myself were reviewed by myself. Departure 1 Departure Time of Disposition: 11:36 Impression: Primary Impression: Left knee pain Additional Impressions: UTI (urinary tract infection) Thrombocytosis Disposition: ADMITTED INPATIENT Admit to: Tele Condition: Guarded Additional Instructions: [place] [address] Ph: [phone] DIAGNOSTIC IMAGING Diagnostic Imaging Report : [id number] Signed PATIENT: NIRMALA MENDEZ ACCT: [id number] UNIT: [id number] : 1960 LOC: ER ROOM / BED: / AGE / SEX: 64 / F ADM STATUS: REG ER SERVICE 1127 ORDERING PHYSICIAN: BEATRICE PAGE DO PROCEDURE(s): BLDVT - BiLat Lower DVT REASON: R calf pain, L knee pain ORDER NUMBER(s): [id number], ACCESSION NUMBER(s): [id number] BILATERAL LOWER EXTREMITY VENOUS DOPPLER CLINICAL HISTORY: R calf pain, L knee pain Technique: Duplex Doppler evaluation of the deep venous systems of both lower extremities from the common femoral veins to the popliteal veins including color Doppler and spectral/pulsed waveform analysis was performed. COMPARISON: None FINDINGS: The right and left common femoral, superficial femoral, popliteal, posterior tibial veins and trifurcations appear patent with normal augmentation, phas icity, compressibility and color-flow. IMPRESSION: 1. There is no sonographic evidence for DVT in the visualized lower extremity veins. HS:Y [place] [address] Ph: [phone] DIAGNOSTIC IMAGING Diagnostic Imaging Report : [id number] Signed PATIENT: NIRMALA MENDEZ ACCT: [id number] UNIT: [id number] : 1960 LOC: ER ROOM / BED: / AGE / SEX: 64 / F ADM STATUS: REG ER SERVICE 1128 ORDERING PHYSICIAN: BEATRICE PAGE DO PROCEDURE(s): LKNCT - CT L KNEE WO CONTRAST REASON: L knee pain, unable to flex ORDER NUMBER(s): [id number], ACCESSION NUMBER(s): [id number] CLINICAL INDICATION: 64 years old, Female; L knee pain, unable to flex. TECHNIQUE: Noncontrast CT of the left knee was performed. Sagittal and coronal reformatted images are provided. COMPARISON: None. CT Dose: CTDI volume is 7.8 mGy. Dose-length product is 498 mGy*cm FINDINGS: No fracture or dislocation. Medial compartment joint space narrowing. There are tricompartment osteophytes. Subchondral cysts noted in the inner aspect of the lateral femoral trochlea. Tricompartment osteophytes. Osteophyte projects into the central joint space of the medial tibial eminence. There is a knee joint effusion. There are multiple metallic densities for example caudal and medial to the inferior aspect of the patella which measures 8 mm. Additional densities are noted in the soft tissues of the anterior muscle compartment, subcutaneous tissues of the deep inner thigh and more superficial soft tissues in the leg [id number]. IMPRESSION: 1. No acute fracture or dislocation. 2. Multiple metallic densities in the soft tissues compatible with foreign bodies. 3. Degenerative changes in the knee. All CT scans at this medical facility are performed using dose modulation techniques as appropriate to a performed exam including the following: Automated exposure control was utilized; adjustment of the MA and/or KV according to patient size; and use of iterative reconstruction technique. HS:Y ATED BY: SWAPNIL LYNCH MD DICTATED DATE/TIME: 12/28/241258 SIGNED BY: SWAPNIL LYNCH MD SIGNED DATE/TIME: 12/28/24 125 CC: DICTATED BY: ELIAZAR MCDOWELL MD DICTATED DATE/TIME: 12/28/24 1220 SIGNED BY: ELIAZAR MCDOWELL MD SIGNED DATE/TIME: 12/28/24 122 CC: Discharged With: Self I personally scribed for NILS PAGEE J DO ([email or web address]) on 12/28/24 at 11:33. Electronically submitted by Luisana Blanchard ([email or web address]). I personally scribed for NILS PAGEE J DO ([email or web address]) on 12/28/24 at 12:25. Electronically submitted by Luisana Blanchard ([email or web address]). I personally scribed for CAMILONILSE J DO ([email or web address]) on 12/28/24 at 12:27. Electronically submitted by Luisana Blanchard ([email or web address]). I personally scribed for NILS PAGEE J DO ([email or web address]) on 12/28/24 at 17:24. Electronically submitted by Luisana Blanchard ([email or web address]). NILS PAGEE J DO Dec 28, 2024 11:33
--- NOTE | 2024-12-28 12:22 | DVH ---
BILATERAL LOWER EXTREMITY VENOUS DOPPLER CLINICAL HISTORY: R calf pain, L knee pain Technique: Duplex Doppler evaluation of the deep venous systems of both lower extremities from the co mmon femoral veins to the popliteal veins including color Doppler and spectral/pulsed waveform analys is was performed. COMPARISON: None FINDINGS: The right and left common femoral, superficial femoral, popliteal, posterior tibial veins and trifur cations appear patent with normal augmentation, phasicity, compressibility and color-flow. IMPRESSION: 1. There is no sonographic evidence for DVT in the visualized lower extremity veins. HS:Y
[2024-12-28 12:33] LABS: Urine Bacteria None Seen /hpf (None Seen)
[2024-12-28 12:37] LABS: Basophils # (auto) 0.1 10 ^3/uL (0-0.2); Basophils % (auto) 0.9 % (0.0-2.0); Eosinophils # (auto) 0.1 10 ^3/uL (0-0.8); Eosinophils % (auto) 0.7 % (0.0-7.0); Hematocrit 39.5 % (36.0-46.0); Hemoglobin 13.1 g/dL (12.2-16.2); Lymphocytes # (auto) 1.9 10 ^3/uL (0.4-5.4); Lymphocytes % (auto) 13.7 % (10.0-50.0); Mean Corpuscular Hemoglobin 26.1 pg (28.0-32.0); Mean Corpuscular Hgb Conc. 33.1 g/dL (32.0-36.0); Mean Corpuscular Volume 78.9 fL (80.0-100.0); Monocytes # (auto) 0.8 10 ^3/uL (0-1.3); Monocytes % (auto) 5.6 % (0.0-12.0); Neutrophils # (auto) 11.2 10 ^3/uL (1.6-8.6); Neutrophils % (auto) 79.1 % (37.0-80.0); Nucleated Red Blood Cells % 0.1 %; Platelet Count (auto) 645 10^3/uL (140-450); Red Blood Cells 5.01 10^6/uL (4.0-5.20); Red Cell Distribution Width 15.6 % (11.8-14.3); White Blood Cell 14.2 10^3/uL (4.4-10.8)
[2024-12-28 12:42] LABS: Alanine Aminotransferase 29 U/L (7-40); Albumin 4.6 g/dL (3.2-4.8); Alkaline Phosphatase 93 U/L (46-116); Anion Gap 9 (5-15); Aspartate Aminotransferase 17 U/L (13-40); BUN/Creatinine Ratio 9.5 (10.0-20.0); CRP High Sensitivity 0.75 mg/dL (<1.0); Calcium 9.8 mg/dL (8.7-10.4); Carbon Dioxide 23 mmol/L (20-31); Glucose 99 mg/dL (74-106); Potassium 3.8 mmol/L (3.5-5.1); Sodium 140 mmol/L (136-145); Total Protein 7.6 g/dL (5.7-8.2)
[2024-12-28 12:56] LABS: Urine Blood 2+ /uL (Negative); Urine Clarity Clear (Clear); Urine Color Colorless (Yellow); Urine Protein, UAD Negative (Negative); Urine Specific Gravity 1.005 (1.001-1.035); Urine Squamous Epithelial Cell None Seen /hpf (<5); Urine Urobilinogen Normal (Negative); Urine WBC 44 /HPF (0-5); Urine WBC Clumps PRESENT /hpf (None Seen)
[2024-12-28 12:56] LABS: Bilirubin, Total 0.2 mg/dL (0.2-1.0); Blood Urea Nitrogen 8 mg/dL (9-23); Chloride 108 mmol/L (98-107)
--- NOTE | 2024-12-28 13:02 | DVH ---
CLINICAL INDICATION: 64 years old, Female; L knee pain, unable to flex. TECHNIQUE: Noncontrast CT of the left knee was performed. Sagittal and coronal reformatted images are provided. COMPARISON: None. CT Dose: CTDI volume is 7.8 mGy. Dose-length product is 498 mGy*cm FINDINGS: No fracture or dislocation. Medial compartment joint space narrowing. There are tricompartment oste ophytes. Subchondral cysts noted in the inner aspect of the lateral femoral trochlea. Tricompartment osteophytes. Osteophyte projects into the central joint space of the medial tibial eminence. There is a knee joint effusion. There are multiple metallic densities for example caudal and medial to the i nferior aspect of the patella which measures 8 mm. Additional densities are noted in the soft tissue s of the anterior muscle compartment, subcutaneous tissues of the deep inner thigh and more superfici al soft tissues in the leg [id number]. IMPRESSION: 1. No acute fracture or dislocation. 2. Multiple metallic densities in the soft tissues compatible with foreign bodies. 3. Degenerative changes in the knee. All CT scans at this medical facility are performed using dose modulation techniques as appropriate t o a performed exam including the following: Automated exposure control was utilized; adjustment of th e MA and/or KV according to patient size; and use of iterative reconstruction technique. HS:Y
[2024-12-28 13:15] LABS: Erythrocyte Sedimentation Rate 20 mm/hr (0-20)
[2024-12-28] MEDS: cefTRIAXone 1GM/50ML D5W 50 ML IV ONE (15:05)
--- NOTE | 2024-12-28 15:50 | DVHHPRES ---
History of Present Illness Resident Creating Document: FRANCISCO RUBI RESIDENT History of Present Illness This is a 64 years old female with past medical history of bronchial asthma, hypertension, degenerative disc disease, GERD, sciatica presented to the ED with a chief complaint of left knee and leg pain since 11:00 a.m. prior to this admission. the patient states that today in the morning when she was wearing socks she suddenly pain she suddenly felt sharp shooting pain started from the lower back on the left side and radiate to her legs and she was not able to move or bend the knee. She also mentioned she had the same pain 2 weeks on the rt side. She denies , chills, point tenderness on the back, saddle anesthesia, incontinence of the bowel and bladder, hematuria or any other sick contact. Past Medical History bronchial asthma, hypertension, degenerative disc disease, GERD, sciatica Past Surgical History C- section, knee surgery, status post amputation of the right foot Family History No significant family history Past Social History Lives with family Nonsmoker, nonalcoholic and never tried any drugs Review of Systems Constitutional: No: Fever, Chills, Sweats, Weakness, Malaise, Other Eyes: No: Pain, Vision change, Conjunctivae inflammation, Eyelid inflammation, Other, Redness ENT: No: Ear pain, Ear discharge, Nose pain, Nose discharge, Nose congestion, Mouth pain, Mouth swelling, Throat pain, Throat swelling, Other Respiratory: No: Cough, Dry, Shortness of breath, SOB with excertion, Wheezing, Hemoptysis, Pleuritic Pain, Sputum, Wheezing, Other Cardiovascular: No: Chest Pain, Palpitations, Orthopnea, Paroxysmal Noc. Dyspnea, Edema, Lt Headedness, Other Gastrointestinal: No: Nausea, Vomiting, Abdominal Pain, Diarrhea, Constipation, Melena, Hematochezia, Other Genitourinary: Dysuria, Frequency; No Incontinence, No Hematuria, No Retention, No Other Musculoskeletal: leg pain, foot pain; No: other, neck pain, shoulder pain, arm pain, back pain, hand pain Skin: No: Rash, Lesions, Jaundice, Bruising, Other Neurological: No: Weakness, Numbness, Incoordination, Change in speech, Confusion, Seizures, Other Allergies: Coded Allergies: Morphine (Verified Allergy, Unknown, 12/28/24) Penicillins (Verified Allergy, Unknown, 09/10/24) red rashes Medications Current Medications Medications Dose Ordered Sig/Justin Route Start Time Stop Time Status Last Admin Dose Admin Pantoprazole Sodium 40 mg DAILY PO 12/29/24 10:00 UNV Ketorolac Tromethamine 30 mg Q8HR IV 12/28/24 22:00 01/02/25 21:59 UNV Enoxaparin Sodium 40 mg DAILY SC 12/29/24 10:00 UNV Patient Own Medication 1 tab DAILY PO 12/29/24 10:00 UNV Exam Vital Signs Vital Signs Date Time Temp Pulse Resp B/P (MAP) Pulse Ox O2 Delivery O2 Flow Rate FiO2 12/28/24 12:00 80 12/28/24 11:45 Room Air* 0 21 12/28/24 11:45 16 153/81 (105) 97 12/28/24 11:29 98.8 98.8 Exam Physical examination: General Appearance: Alert, Oriented X3, Cooperative, No acute distress HEENT: Atraumatic, PERRLA, EOMI, Mucous membrane moist/pink Respiratory: Clear to auscultation, Normal air movement Cardiovascular: Regular rate, Normal S1, Normal S2, No murmurs, no chest wall tenderness Abdominal: Normal bowel sounds, Soft, No tenderness, No hepatospenomegaly, No masses Extremities: SLR positive on the rt side, No clubbing, No cyanosis, No edema, Normal pulses, No tenderness/swelling Skin: No rashes, No breakdown, No significant lesion Neuro: Normal gait, Normal speech, Strength at 5/5 X4 ext, Normal tone, Sensation intact, Cranial nerves 3-12 NL, Reflexes 2+ Psych/Mental Status: Mental status NL, Mood NL Labs/Xrays Labs Test 12/28/24 12:32 12/28/24 12:00 Range/Units Urine Color Colorless Yellow Urine Clarity Clear Clear Urine pH 6.0 5.0-9.0 Urine Specific [place] 1.005 1.001-1.035 Urine Protein Negative Negative Urine Ketones Negative Negative Urine Blood 2+ H Negative /uL Urine Nitrite Negative Negative Urine Bilirubin Negative Negative Urine Urobilinogen Normal Negative mg/dL Urine Leukocyte Esterase 2+ Negative /uL Urine RBC 2 0 - 4 /hpf Urine WBC Clumps Present None Seen /hpf Urine Microscopic WBC 44 H 0-5 /HPF Urine Squamous Epithelial Cells None seen <5 /hpf Urine Bacteria None seen None Seen /hpf Urine Glucose Normal Normal mg/dL White Blood Count 14.2 H 4.4-10.8 10^3/uL Red Blood Count 5.01 4.0-5.20 10^6/uL Hemoglobin 13.1 12.2-16.2 g/dL Hematocrit 39.5 36.0-46.0 % Mean Corpuscular Volume 78.9 L 80.0-100.0 fL Mean Corpuscular Hemoglobin 26.1 L 28.0-32.0 pg Mean Corpuscular Hemoglobin Concent 33.1 32.0-36.0 g/dL Red Cell Distribution Width 15.6 H 11.8-14.3 % Platelet Count 645 H 140-450 10^3/uL Mean Platelet Volume 6.8 L 6.9-10.8 fL Neutrophils (%) (Auto) 79.1 37.0-80.0 % Lymphocytes (%) (Auto) 13.7 10.0-50.0 % Monocytes (%) (Auto) 5.6 0.0-12.0 % Eosinophils (%) (Auto) 0.7 0.0-7.0 % Basophils (%) (Auto) 0.9 0.0-2.0 % Neutrophils # (Auto) 11.2 H 1.6-8.6 10 ^3/uL Lymphocytes # (Auto) 1.9 0.4-5.4 10 ^3/uL Monocytes # (Auto) 0.8 0-1.3 10 ^3/uL Eosinophils # (Auto) 0.1 0-0.8 10 ^3/uL Basophils # (Auto) 0.1 0-0.2 10 ^3/uL Nucleated Red Blood Cells 0.1 % Erythrocyte Sedimentation Rate 20 0-20 mm/hr Sodium Level 140 136-145 mmol/L Potassium Level 3.8 3.5-5.1 mmol/L Chloride Level 108 H 98-107 mmol/L Carbon Dioxide Level 23 20-31 mmol/L Anion Gap 9 5-15 Blood Urea Nitrogen 8 L 9-23 mg/dL Creatinine 0.84 0.550-1.02 mg/dL Glomerular Filtration Rate Calc 79 >90 mL/min BUN/Creatinine Ratio 9.5 L 10.0-20.0 Serum Glucose 99 74-106 mg/dL Calcium Level 9.8 8.7-10.4 mg/dL Total Bilirubin 0.2 0.2-1.0 mg/dL Aspartate Amino Transferase (AST) 17 13-40 U/L Alanine Aminotransferase (ALT) 29 7-40 U/L Alkaline Phosphatase 93 46-116 U/L C-Reactive Protein High Sensitivity 0.75 <1.0 mg/dL Total Protein 7.6 5.7-8.2 g/dL Albumin 4.6 3.2-4.8 g/dL Assessment/Plan Assessment/Plan Assessment and plan: # Severe pain in the right lower leg likely due to flare-up of sciatica # Ruled out acute limb ischemia # Ruled out DVT # S/P amputation of the - Knee CT demonstrated no acute fracture or dislocation, Multiple metallic densities in the soft tissues compatible with foreign bodies, Degenerative changes in the knee. - Doppler scan of the lower limb excluded the possibility of the DVT - Orthopedics on the board. - IV Toradol 30 mg once and Q 8 p.r.n. - Physical therapy. # Acute complicated cystitis - U/A was consistent with UTI - Ordered urine bacterial culture - IV ceftriaxone 1 gm daily # GERD - Protonix 40 mg p.o. daily # DVT prophylaxis - Protonix 40 mg sc daily Goal of Care discussed with the patient for more than 20 minutes full code Plan discussed with Dr. Petersno Plan discussed with: Patient, Other My Orders Orders - FRANCISCO RUBI RESIDENT Procedure Category Date Status Time Admit ADMIT 12/28/24 Transmitted 15:40 Regular Diet DIET 12/28/24 Transmitted Dinner Urine Bacterial KIMBERLY 12/28/24 Logged Culture 15:42 Thyroid Stimulating LAB 12/28/24 Logged Hormone 15:42 Pantoprazole Tablet PHA 12/28/24 Logged (Protonix Tablet) 15:45 Pantoprazole Tablet PHA 12/29/24 Logged (Protonix Tablet) 10:00 Ketorolac Injection PHA 12/28/24 Logged (Toradol Injection) 15:45 Ketorolac Injection PHA 12/28/24 Logged (Toradol Injection) 22:00 Enoxaparin Sodium PHA 12/29/24 Logged (Lovenox) 10:00 (Nf) Amlodipine PHA 12/29/24 Transmitted Besylate 10:00 Date of Service: Dec 28, 2024 Billing Provider: SAW PETERSON MD Common Visit Codes: [id number] INP/OBS CARE (HIGH) FRANCISCO RUBI RESIDENT Dec 28, 2024 15:50 SAW PETERSON MD Dec 28, 2024 17:03
[2024-12-28] MEDS: PANTOPRAZOLE 40 MG TAB PO ONE (17:50)
[2024-12-28] MEDS: KETOROLAC TROMETH 30 MG/ML 1ML VIAL IV ONE (17:50)
--- NOTE | 2024-12-28 18:57 | DVH ---
Exam: CT PELVIS WO CONTRAST History: BILAT HIP PAIN Comparison Study: None available at time of dictation. Technique: Multidetector CT of the pelvis was performed from iliac crests to pubic symphysis after th e administration of intravenous contrast was administered during this examination. Portal venous imag ing was obtained. Axial, coronal and sagittal multiplanar reformats were performed by the [employer] Command t on a separate workstation. Radiation Dose : CT Dose: CTDI volume is 19.2 mGy. Dose-length product is 625.81 mGy*cm Findings: Visualized bowel: No bowel wall thickening or dilatation. Ascites: Absent Lymphadenopathy: No pelvic or mesenteric lymphadenopathy. Vasculature: The visualized abdominal aorta is normal in size and caliber. Abdominal and pelvic vesse ls demonstrate normal enhancement. Pelvic Organs: Unremarkable Musculoskeletal: No pelvic or femoral fractures bilaterally. Mild arthritic changes are noted in both hips. Fusion of the superior SI joint on the right. The left appears normal Bladder: Unremarkable Soft tissues: Unremarkable. IMPRESSION: 1. No pelvic or femoral fracture bilaterally. 2. Mild arthritic changes in both hips right worse than left. 3. Fusion of the upper right SI joint. ( series 601 images 65- 71). The left appears normal. All CT scans at this medical facility are performed using dose modulation techniques as appropriate t o a performed exam including the following: Automated exposure control was utilized; adjustment of th e MA and/or KV according to patient size; and use of iterative reconstruction technique.
--- NOTE | 2024-12-28 19:24 | DVHINCON2 ---
Consult Note Consult Consult Note Chief complaint Left leg pain with sudden onset this morning History of present illness Patient is 64-year-old female with no recent trauma who reports acute onset of left leg pain that began this morning. She describes the pain as worsening throughout the day particularly exacerbated by knee flexion. She repeatedly notes significant discomfort with any attempt to bend the knee. There is no history of fall sleep trauma or injury. Patient denies any low back pain worsening, low back pain red flags to include but not limited to urinary incontinence bladder incontinence numbness tingling lower extremity weakness. Patient has no significant history of fever chills or systemic symptoms. Patient does report she was admitted few weeks ago for similar leg pain and leg cramping. Patient reports she has history of severe stenosis lumbar for which she has seen ortho spine surgeon who recommended surgery however patient has not followed up with him yet, she plans to follow up with him soon per patient. Patient also reports history of allergies to pain medication therefore she avoids taking any opiates. During my interview patient she was in no acute distress and able to answer all questions appropriately. Patient denies any recent changes in her diet activity medications or diagnoses. Patient reports chronic history of lower back pain with degenerative disc disease but denies any follow up with physical therapy pain management or surgical treatment at this time. Per patient no MRI can be completed due to metallic foreign bodies/shrapnel from 2 decades ago as advised by her previous doctors. Physical exam focused: General: Alert, oriented, no apparent distress during interview Neurovascular: Intact sensation pulse left lower leg Left lower extremity: Tenderness to palpation L4-L5 L5-S1, SI joint bilaterally, greater trochanter bursa, deep glute pain left-sided, groin pain, diffuse quad , hamstring diffuse Tenderness over mediolateral joint line left knee, patella tendon, retropatellar. Pain with active passive knee flexion range of motion on the knee is 0-80 becomes painful after that max knee flexion of 90 with pain no gross deformity erythema edema warmth of left leg, left hip, left knee left ankle noted. Tenderness to palpation lateral aspect of calf gastroc belly Ankle range of motion full and intact Soft compartments over quad hamstring and calf Grossly neurovascularly intact Impression DVT workup is negative No fractures noted on CT left leg, foreign body/shrapnel noted (per patient chronic more than 2 decades old) acute onset of left knee pain left leg pain without trauma. Primary concern appears to be sciatica, lumbar radiculopathy as a referred pain to knee and calf, however, knee pain worsening with knee flexion can not be excluded as pain source. No concern for septic knee, gout flare(no history of gout per patient) Differential diagnosis Lumbar radiculopathy(referred pain to the knee)/sciatica flare-up Knee osteoarthritis flare-up Hip pathology Recommendation to medicine team Medicine team has planned to admit this patient for close monitoring pain control at this time and further workup Orthopedic recommendation Complete x-ray left knee, bilateral hip, lumbar Pain management recommendation to medicine team includes trial of gabapentin versus Lyrica versus duloxetine and/or other medications to help manage pain depending on patient's tolerance, renal function, side effect profile. Recommend neurology/neurosurgery consult to evaluate for possible radiculopathy versus other central etiologies Ortho we will follow during hospitalization, if knee pain worsens can do a trial of intra-articular lidocaine injection to see if her knee pain improves with the range of motion Please notify Orthopedic once imaging is complete or if develop any new concern MSK related Plan discussed with: Patient, Other (medicine team) Visit Coding Surgery Date of Service if different f: Dec 28, 2024 Billing Provider: NEENA VALDEZ Surgery Visit Codes: [id number] INP/OBS CARE(HIGH) NEENA VALDEZ Dec 28, 2024 19:24
[2024-12-28 20:19] VITALS: PULSE 74; RESP 15; O2SAT 98
--- NOTE | 2024-12-28 21:16 | DVH ---
CT LS SPINE WO CONTRAST INDICATION: lower back pain, noncon only please EXAM DATE: 12/28/2024 06:05 PM COMPARISON: LS SPINE WO CONTRAST on DOS: 02/23/20 RADIATION DOSE: CTDIvol: 30.03 mGy, DLP: 1007.69 mGy*cm Technique: Utilizing the CT scanner, contiguous axial scans were obtained through the lumbar spine. C oronal and sagittal reformatted images were then generated. All CT scans at this medical facility are performed using dose modulation techniques as appropriate t o a performed exam including the following: Automated exposure control was utilized; adjustment of th e MA and/or KV according to patient size; and use of iterative reconstruction technique. FINDINGS: 5 ygb-vfx-alhzwff lumbar-type vertebrae partial sacralization of L5. Mild straightening of the lumbar lordosis. Vertebral body heights are maintained. Large left-sided a nterior bridging osteophytes at L3-L4. Mild diffuse demineralization. T12-L1: No significant spinal canal or neural foramina stenosis. L1-L2: Minimal posterior disc bulge without significant spinal canal or neural foramina stenosis. L2-L3: Minimal posterior disc bulge without significant spinal canal or neural foramina stenosis. L3-L4: Mild posterior disc bulge without significant spinal canal or neural foramina stenosis. L4-L5: Mild posterior disc bulge without significant spinal canal stenosis. Moderate bilateral neural foramina stenosis. L5-S1: Mild posterior disc bulge without significant spinal canal stenosis. Mujf-xd-adcbtrrz bilatera l neural foramina stenosis. The paraspinal muscles unremarkable. Mild nonspecific midline lower back Subcutaneous fat edema. The lung bases are clear. IMPRESSION: Multilevel fija-tw-biudvyfb degenerative changes of the lumbar spine. Persist, MRI should be consider ed for further evaluation. Moderate bilateral neural foramina stenosis at L4-L5. Dabn-ui-wmxpyrad bilateral neural foramina sten osis at L5-S1.
[2024-12-28 22:15] VITALS: BP 147/70; PULSE 71; RESP 20; TEMP 98; O2SAT 94
[2024-12-28] MEDS: KETOROLAC TROMETH 30 MG/ML 1ML VIAL IV SCH (22:53)
[2024-12-28 23:15] VITALS: BP 137/73; PULSE 77; RESP 15; TEMP 98.1; O2SAT 98
[2024-12-29] VITALS (8 sets, daily range): BP systolic 138–148; BP diastolic 67–84; PULSE 68–101; RESP 16–20; TEMP 97.4–98.1; O2SAT 92–97
[2024-12-29 06:43] LABS: Anion Gap 11 (5-15); Carbon Dioxide 24 mmol/L (20-31); Chloride 106 mmol/L (98-107); Potassium 3.5 mmol/L (3.5-5.1); Sodium 141 mmol/L (136-145)
[2024-12-29 06:44] LABS: Basophils # (auto) 0.1 10 ^3/uL (0-0.2); Basophils % (auto) 0.6 % (0.0-2.0); Calcium 9.5 mg/dL (8.7-10.4); Eosinophils # (auto) 0.2 10 ^3/uL (0-0.8); Eosinophils % (auto) 1.9 % (0.0-7.0); Hemoglobin 12.2 g/dL (12.2-16.2); Monocytes # (auto) 0.7 10 ^3/uL (0-1.3)
[2024-12-29 06:47] LABS: Hematocrit 36.8 % (36.0-46.0); Lymphocytes # (auto) 2.1 10 ^3/uL (0.4-5.4); Lymphocytes % (auto) 17.3 % (10.0-50.0); Mean Corpuscular Hemoglobin 25.7 pg (28.0-32.0); Mean Corpuscular Volume 77.8 fL (80.0-100.0); Monocytes % (auto) 5.9 % (0.0-12.0); Neutrophils % (auto) 74.3 % (37.0-80.0); Platelet Count (auto) 567 10^3/uL (140-450); Red Blood Cells 4.73 10^6/uL (4.0-5.20); Red Cell Distribution Width 15.5 % (11.8-14.3); White Blood Cell 12.2 10^3/uL (4.4-10.8)
[2024-12-29 06:49] LABS: Blood Urea Nitrogen 9 mg/dL (9-23); Glucose 97 mg/dL (74-106)
--- NOTE | 2024-12-29 07:09 | DVHINCON2 ---
Consultation - Spinal Surgery Date Seen: Dec 29, 2024 Referring Physician Referring Physician Attending Doctor: Sheree Gallego Resident Reason for Consultation low back pain History of Present Illness History of Present Illness History of Present Illness This is a 64 years old female with past medical history of bronchial asthma, hypertension, degenerative disc disease, GERD, sciatica presented to the ED with a chief complaint of left knee and leg pain since 11:00 a.m. prior to this admission. the patient states that today in the morning when she was wearing socks she suddenly pain she suddenly felt sharp shooting pain started from the lower back on the left side and radiate to her legs and she was not able to move or bend the knee. She also mentioned she had the same pain 2 weeks on the rt side. She denies , chills, point tenderness on the back, saddle anesthesia, incontinence of the bowel and bladder, hematuria or any other sick contact. Past Medical/Surgical History Past Medical/Surgical History Past Medical History bronchial asthma, hypertension, degenerative disc disease, GERD, sciatica Past Surgical History C- section, knee surgery, status post amputation of the right foot Family and Social History Family and Social History Family History No significant family history Past Social History Lives with family Nonsmoker, nonalcoholic and never tried any drugs Allergies and medications Allergies: Coded Allergies: Morphine (Verified Allergy, Unknown, 12/28/24) Penicillins (Verified Allergy, Unknown, 09/10/24) red rashes Home Meds Active Scripts Albuterol Sulfate (VENTOLIN MDI) 90 Mcg Ih, 90 MCG IN BID for 30 Days, #30 INH Prov:SAW MONTGOMERY MD 01/04/23 Reported Medications Mghwtvvvjzs-Ceerzoanx-Tpyoslrw (Talicia 250-12.5-10 mg) 1 Cap Cap, 4 CAP PO Q8H 12/16/24 Montelukast Sodium (MONTELUKAST SODIUM) 10 Mg Tab, 1 TAB PO DAILY 12/16/24 Multiple Vitamin (Multivitamin) 1 Tab Tab, 1 TAB PO DAILY 12/16/24 Empagliflozin (Jardiance) 10 Mg Tab, 10 MG PO, TAB 09/10/24 Amlodipine Besylate (Amlodipine Besylate) 10 Mg Tab, 1 TAB PO DAILY 01/02/23 Review of systems Review of Systems: HEENT:Normal, CVS:Normal, RESPIRATORY:Normal, GI:Normal, :Normal, MSK:Normal, NEURO:Normal Examination Vital signs Imaging CT LS SPINE WO CONTRAST INDICATION: lower back pain, noncon only please EXAM DATE: 12/28/2024 06:05 PM COMPARISON: LS SPINE WO CONTRAST on DOS: 02/23/20 RADIATION DOSE: CTDIvol: 30.03 mGy, DLP: 1007.69 mGy*cm Technique: Utilizing the CT scanner, contiguous axial scans were obtained through the lumbar spine. Coronal and sagittal reformatted images were then generated. All CT scans at this medical facility are performed using dose modulation techniques as appropriate to a performed exam including the following: Automated exposure control was utilized; adjustment of the MA and/or KV according to patient size; and use of iterative reconstruction technique. FINDINGS: 5 pvy-abx-ghzdtvb lumbar-type vertebrae partial sacralization of L5. Mild straightening of the lumbar lordosis. Vertebral body heights are maintained. Large left-sided anterior bridging osteophytes at L3-L4. Mild diffuse demineralization. T12-L1: No significant spinal canal or neural foramina stenosis. L1-L2: Minimal posterior disc bulge without significant spinal canal or neural foramina stenosis. L2-L3: Minimal posterior disc bulge without significant spinal canal or neural f oramina stenosis. L3-L4: Mild posterior disc bulge without significant spinal canal or neural foramina stenosis. L4-L5: Mild posterior disc bulge without significant spinal canal stenosis. Moderate bilateral neural foramina stenosis. L5-S1: Mild posterior disc bulge without significant spinal canal stenosis. Oefv-jp-aukneukf bilateral neural foramina stenosis. The paraspinal muscles unremarkable. Mild nonspecific midline lower back Subcutaneous fat edema. The lung bases are clear. IMPRESSION: Multilevel pmpi-pq-yylicgcz degenerative changes of the lumbar spine. Persist, MRI should be considered for further evaluation. Moderate bilateral neural foramina stenosis at L4-L5. Csve-up-idynsbhk bilateral neural foramina stenosis at L5-S1. Vital Signs Date Time Temp Pulse Resp B/P (MAP) Pulse Ox O2 Delivery O2 Flow Rate FiO2 12/29/24 05:00 97.9 74 20 146/67 (93) 96 97.9 12/28/24 23:15 Room Air* 0 21 Medications Current Medications Medications (Trade) Dose Ordered Sig/Justin Route PRN Reason Start Time Stop Time Status Last Admin Pantoprazole Sodium (Protonix Tablet) 40 mg DAILY PO 12/29/24 10:00 Ketorolac Tromethamine (Toradol Injection) 30 mg Q8HR IV 12/28/24 22:00 01/02/25 21:59 12/29/24 06:33 Enoxaparin Sodium (Lovenox) 40 mg DAILY SC 12/29/24 10:00 Amlodipine Besylate (Norvasc Tablet) 10 mg DAILY PO 12/29/24 10:00 Ceftriaxone Sodium 50 ml @ 100 mls/hr DAILY IV 12/29/24 10:00 Laboratory Labs Test 12/29/24 05:43 12/28/24 12:32 12/28/24 12:00 Range/Units White Blood Count 12.2 H 4.4-10.8 10^3/uL Red Blood Count 4.73 4.0-5.20 10^6/uL Hemoglobin 12.2 12.2-16.2 g/dL Hematocrit 36.8 36.0-46.0 % Mean Corpuscular Volume 77.8 L 80.0-100.0 fL Mean Corpuscular Hemoglobin 25.7 L 28.0-32.0 pg Mean Corpuscular Hemoglobin Concent 33.0 32.0-36.0 g/dL Red Cell Distribution Width 15.5 H 11.8-14.3 % Platelet Count 567 H 140-450 10^3/uL Mean Platelet Volume 6.9 6.9-10.8 fL Neutrophils (%) (Auto) 74.3 37.0-80.0 % Lymphocytes (%) (Auto) 17.3 10.0-50.0 % Monocytes (%) (Auto) 5.9 0.0-12.0 % Eosinophils (%) (Auto) 1.9 0.0-7.0 % Basophils (%) (Auto) 0.6 0.0-2.0 % Neutrophils # (Auto) 9.0 H 1.6-8.6 10 ^3/uL Lymphocytes # (Auto) 2.1 0.4-5.4 10 ^3/uL Monocytes # (Auto) 0.7 0-1.3 10 ^3/uL Eosinophils # (Auto) 0.2 0-0.8 10 ^3/uL Basophils # (Auto) 0.1 0-0.2 10 ^3/uL Nucleated Red Blood Cells 0.0 % Sodium Level 141 136-145 mmol/L Potassium Level 3.5 3.5-5.1 mmol/L Chloride Level 106 98-107 mmol/L Carbon Dioxide Level 24 20-31 mmol/L Anion Gap 11 5-15 Blood Urea Nitrogen 9 9-23 mg/dL Creatinine 0.90 0.550-1.02 mg/dL Glomerular Filtration Rate Calc 72 >90 mL/min BUN/Creatinine Ratio 10.0 10.0-20.0 Serum Glucose 97 74-106 mg/dL Calcium Level 9.5 8.7-10.4 mg/dL Urine Color Colorless Yellow Urine Clarity Clear Clear Urine pH 6.0 5.0-9.0 Urine Specific [place] 1.005 1.001-1.035 Urine Protein Negative Negative Urine Ketones Negative Negative Urine Blood 2+ H Negative /uL Urine Nitrite Negative Negative Urine Bilirubin Negative Negative Urine Urobilinogen Normal Negative mg/dL Urine Leukocyte Esterase 2+ Negative /uL Urine RBC 2 0 - 4 /hpf Urine WBC Clumps Present None Seen /hpf Urine Microscopic WBC 44 H 0-5 /HPF Urine Squamous Epithelial Cells None seen <5 /hpf Urine Bacteria None seen None Seen /hpf Urine Glucose Normal Normal mg/dL Erythrocyte Sedimentation Rate 20 0-20 mm/hr Total Bilirubin 0.2 0.2-1.0 mg/dL Aspartate Amino Transferase (AST) 17 13-40 U/L Alanine Aminotransferase (ALT) 29 7-40 U/L Alkaline Phosphatase 93 46-116 U/L C-Reactive Protein High Sensitivity 0.75 <1.0 mg/dL Total Protein 7.6 5.7-8.2 g/dL Albumin 4.6 3.2-4.8 g/dL Thyroid Stimulating Hormone (TSH) 3.49 0.55-4.78 uIU/mL Examination: GENERAL:Normal, HEENT:Normal, LUNGS:Normal, CVS:Normal, ABDOMEN:No rmal, MSK:Normal, SKIN:Normal, NEURO:Abnormal (Patient experiencing excruciating left leg weakness and pain radiating from her left low back down her leg. She is weak 3/5 to lift her knee off of the bed. She is unable to bear weight on it. She has been struggling with this for many months. She is well known to Dr. Preston at his office), :Normal Problem List/Assessment/Plan Problems: (1) Lumbar stenosis with neurogenic claudication (2) Muscle spasm of back Assessment and Plan Lumbar stenosis with neurogenic claudication Patient has been cleared cardio and medical to proceed for surgical intervention with Dr. Prabhu Berry Surgery is pending schedule availability of the OR Plan is for 12/30/2024 at 0700 hours NPO after midnight tonight Continue care and supportive measures per admitting team's discretion Call with questions [facility] Orthopaedic Spine Surgery nurse practitioner For Dr Pito Berry Patient was examined, chart reviewed, labs evaluated, and diagnostic studies and findings analyzed. Case was discussed with Dr. Prabhu Berry who formulated the plan of care. This medical document was created using an electronic medical record system with [employer] dictation system. Although this document has been carefully reviewed, there might still be some phonetic and typographical errors. These areas are purely typographical due to imperfections of the software programs, and do not reflect any compromise in the patient's medical care. Plan discussed with Plan discussed with: Patient, Other DIANNE SALAZAR [employer] Dec 29, 2024 07:09
[2024-12-29] MEDS: amLODIPine BESYLATE 5 MG TAB PO SCH (09:43)
[2024-12-29] MEDS: PANTOPRAZOLE 40 MG TAB PO SCH (09:43)
[2024-12-29] MEDS: cefTRIAXone 1GM/50ML D5W 50 ML IV SCH (09:44)
[2024-12-29] MEDS: ENOXAPARIN SOD 40 MG/0.4 ML SYRINGE SC SCH (09:44)
[2024-12-29] MEDS: MAALOX PLUS or MAALOX 30 ML PO ONE (11:30)
--- NOTE | 2024-12-29 11:33 | DVHPNRES ---
Progress Note Date Seen: Dec 29, 2024 Resident Creating Document: SEJAL RODRIGEZ RESIDENT Medical Necessity Reason Pt with a Central, PICC or Fol: No Subjective Review of Systems This is a 64 years old female who presented to the ED with a chief complaint of left knee and leg pain since 11:00 a.m. prior to this admission. Past Medical History: bronchial asthma, hypertension, degenerative disc disease, GERD, sciatica Past Surgical History: C- section, knee surgery, status post amputation of the right foot Family History: No significant family history Past Social History: Lives with family. Nonsmoker, nonalcoholic and never tried any drugs The patient states that today in the morning when she was wearing socks she suddenly pain she suddenly felt sharp shooting pain started from the lower back on the left side and radiate to her legs and she was not able to move or bend the knee. She also mentioned she had the same pain 2 weeks on the rt side. She denies , chills, point tenderness on the back, saddle anesthesia, incontinence of the bowel and bladder, hematuria or any other sick contact. On my initial assessment, patient was seen and examined at bedside. She currently states feeling well, denies any significant shortness of breath, chest pain, dysuria, nausea, vomiting, diarrhea, constipation, dizziness, lightheadedness. She's currently tolerating diet. Patient is currently only complaining about [id number] abdominal pain, most prominent in the periumbilical area and epigastric. She was also complaining of a shooting pain on her left leg. Objective vital signs Vital Sign Date Time Temp Pulse Resp B/P (MAP) Pulse Ox O2 Delivery O2 Flow Rate FiO2 12/29/24 09:43 147/71 12/29/24 08:46 97.6 68 20 92 97.6 12/29/24 08:00 Room Air* 0 21 Total Intake and Output 12/28/24 12/28/24 12/29/24 15:00 23:00 07:00 Intake Total 50 ml 800 ml Balance 50 ml 800 ml medications Current Medications Medications Dose Ordered Sig/Justin Route Start Time Stop Time Status Last Admin Dose Admin Pantoprazole Sodium 40 mg DAILY PO 12/29/24 10:00 12/29/24 09:43 40 MG Ketorolac Tromethamine 30 mg Q8HR IV 12/28/24 22:00 01/02/25 21:59 12/29/24 06:33 30 MG Enoxaparin Sodium 40 mg DAILY SC 12/29/24 10:00 12/29/24 09:44 40 MG Amlodipine Besylate 10 mg DAILY PO 12/29/24 10:00 12/29/24 09:43 10 MG Ceftriaxone Sodium 50 ml @ 100 mls/hr DAILY IV 12/29/24 10:00 12/29/24 09:44 100 MLS/HR Gabapentin 300 mg HS PO 12/29/24 22:00 Examination Physical examination as below: General: Awake, alert, comfortable appearing, in no acute distress. HEENT: Head is normocephalic and atraumatic. Pupils are equal, round, and reactive to light. Extraocular muscles are intact. No nasal discharge. No facial trauma. Intraoral exam shows moist mucous membranes with no tonsillar enlargement or exudate. Neck: Supple with no cervical lymphadenopathy. Heart: Regular rate without murmur, rub, or gallop. Lungs: Equal breath sounds bilaterally with no wheezing, rales, or rhonchi. There is no chest wall tenderness or instability. Abdomen: No external sign of injury. Bowel sounds are present. Mild tenderness to palpation most prominent on an epigastric and periumbilical area Extremities: Strong peripheral pulses. There is no clubbing, no cyanosis, and no edema. Skin: No rash. Neurologic: Cranial nerves II-XII intact without motor, sensory, or cerebellar deficit, no asterixis. laboratory and microbiology Laboratory Tests 12/29/24 05:43 Test 12/29/24 05:43 Range/Units Serum Glucose 97 74-106 mg/dL Labs and/or images reviewed: Labs reviewed by me, Image(s) reviewed by me Problem List/Assessment/Plan Problem List/Assessment/Plan # Severe pain in the right lower leg likely due to flare-up of sciatica, lumbar radiculopathy # Ruled out DVT - Knee CT demonstrated no acute fracture or dislocation, Multiple metallic densities in the soft tissues compatible with foreign bodies, Degenerative changes in the knee. - Doppler scan of the lower limb excluded the possibility of the DVT - Orthopedics on the board, patient will undergo lumbar spine procedure tomorrow by Dr. Berry. NPO after midnight. - DC IV Toradol - Physical therapy. Ordered PT PTT, EKG, chest x-ray # Acute complicated cystitis - U/A was consistent with UTI - Ordered urine bacterial culture, still pending - IV ceftriaxone 1 gm daily # GERD # history of Helicobacter pylori infection - Protonix 40 mg p.o. daily Aluminum, magnesium and simethicone as needed Bentyl 20 mg IM once # DVT prophylaxis - Lovenox 40 mg sc daily Goal of Care discussed with the patient for more than 30 minutes full code Plan discussed with Dr. Peterson Plan discussed with: Patient, Other (RN) My Orders My Orders Orders - SEJAL RODRIGEZ RESIDENT Procedure Category Date Status Time Dicyclomine Injection PHA 12/29/24 Verified (Bentyl Injection) 11:30 Alum & Mag PHA 12/29/24 Verified Hydrox-Simethicone 11:30 Alum & Mag PHA 12/29/24 Verified Hydrox-Simethicone 11:30 Date of Service: Dec 29, 2024 Billing Provider: SAW PETERSON MD Common Visit Codes: [id number] INP/OBS CARE(HIGH) SEJAL RODRIGEZ RESIDENT Dec 29, 2024 11:33 SAW PETERSON MD Dec 29, 2024 17:18
[2024-12-29] MEDS: DICYCLOMINE HCL (10MG/ML) 2 ML AMPULE IM ONE (15:23)
[2024-12-29 16:22] LABS: INR 1.05 (0.9-1.15); Partial Thromboplastin Time 29.9 SEC (24.5-34.5); Prothrombin Time 11.1 sec (9.3-11.8)
--- NOTE | 2024-12-29 16:23 | DVH ---
CHEST RADIOGRAPH Indication: Pain Technique: Single frontal view of the chest was obtained COMPARISON: None FINDINGS: Lines and Tubes: None Lungs: Clear Pleura: No effusion. No pneumothorax. Cardiomediastinal contours: Unremarkable Bones: Unremarkable IMPRESSION: No acute disease.
[2024-12-29] MEDS: MAALOX PLUS or MAALOX 30 ML PO PRN (20:45)
[2024-12-29] MEDS: GABAPENTIN 300 MG CAP PO SCH (22:00)
[2024-12-30] VITALS (7 sets, daily range): BP systolic 129–157; BP diastolic 62–84; PULSE 68–123; RESP 11–18; TEMP 97–97.8; O2SAT 96–100
[2024-12-30 05:45] LABS: Eosinophils # (auto) 0.2 10 ^3/uL (0-0.8); Mean Corpuscular Hemoglobin 25.8 pg (28.0-32.0); Neutrophils % (auto) 76.3 % (37.0-80.0)
[2024-12-30 05:50] LABS: Basophils # (auto) 0 10 ^3/uL (0-0.2); Basophils % (auto) 0.3 % (0.0-2.0); Eosinophils % (auto) 1.3 % (0.0-7.0); Hematocrit 38.4 % (36.0-46.0); Hemoglobin 12.7 g/dL (12.2-16.2); Lymphocytes # (auto) 2.6 10 ^3/uL (0.4-5.4); Lymphocytes % (auto) 17.7 % (10.0-50.0); Mean Corpuscular Hgb Conc. 33.2 g/dL (32.0-36.0); Mean Corpuscular Volume 77.9 fL (80.0-100.0); Monocytes # (auto) 0.6 10 ^3/uL (0-1.3); Monocytes % (auto) 4.4 % (0.0-12.0); Neutrophils # (auto) 11.2 10 ^3/uL (1.6-8.6); Platelet Count (auto) 649 10^3/uL (140-450); Red Blood Cells 4.93 10^6/uL (4.0-5.20); Red Cell Distribution Width 15.3 % (11.8-14.3); White Blood Cell 14.7 10^3/uL (4.4-10.8)
[2024-12-30 05:58] LABS: Potassium 3.7 mmol/L (3.5-5.1); Sodium 143 mmol/L (136-145)
[2024-12-30 05:59] LABS: Anion Gap 9 (5-15); Carbon Dioxide 25 mmol/L (20-31)
[2024-12-30 06:00] LABS: Calcium 9.5 mg/dL (8.7-10.4)
[2024-12-30 06:04] LABS: Glucose 95 mg/dL (74-106)
[2024-12-30 06:31] LABS: Blood Urea Nitrogen 7 mg/dL (9-23); Chloride 109 mmol/L (98-107)
[2024-12-30] MEDS: LIDOCAINE 1% HCL (LOCAL ANESTH.) INJ 20ML MDV ONE (06:32)
[2024-12-30] MEDS: levoFLOXacin 500MG 200 ML IV ONE (06:34)
[2024-12-30] MEDS: CIPROFLOXACIN 400MG/200ML 400 ML IV ONE (06:34)
[2024-12-30] MEDS ORDERED: MIDAZOLAM HCL 2MG/2ML 2ml VIAL (1mg/ml) ONE (07:04)
[2024-12-30] MEDS ORDERED: KETAMINE 50mg/ML 1ml syringe ONE (07:04)
[2024-12-30] MEDS ORDERED: fentaNYL CITRATE 5 ML ONE (07:04)
[2024-12-30] MEDS ORDERED: fentaNYL CITRATE 100 MCG/2 ML VL ONE (07:04)
[2024-12-30] MEDS ORDERED: ePHEDrine SULFATE 50 MG/ML AMP ONE (07:05)
[2024-12-30] MEDS ORDERED: PHENYLEPHRINE HCL 10 MG/ML VL ONE (07:05)
[2024-12-30] MEDS ORDERED: HYDROCORTISONE SOD SUCC 100 MG/2ML INJ VIAL ONE (07:05)
[2024-12-30] MEDS ORDERED: LIDOCAINE HCL 100 MG/5ML (2%) SYRG INJ IV ONE (07:05)
[2024-12-30] MEDS ORDERED: PROPOFOL 10 MG/ML 20 ML IV ONE (07:05)
[2024-12-30] MEDS ORDERED: KETOROLAC TROMETH 30 MG/ML 1ML VIAL ONE (07:05)
[2024-12-30] MEDS ORDERED: GLYCOPYRROLATE 0.2 MG/ML 1ML VIAL ONE (07:05)
[2024-12-30] MEDS ORDERED: ROCURONIUM 10MG/ML 10ML VIAL IV ONE (07:05)
--- NOTE | 2024-12-30 07:07 | DVHHP2 ---
History Allergies: Coded Allergies: Morphine (Verified Allergy, Unknown, 12/28/24) Penicillins (Verified Allergy, Unknown, 09/10/24) red rashes Chief Complaint: Lumbar stenosis with neurogenic claudication Present Illness(Onset/Duration Patient has been suffering from low back pain for several years which is impacting her left lower extremity making it difficult to straighten her leg or bear weight when she stands. This impairs her walking ability and efforts to perform activities of daily living Past Surgical History: Other (Patient has not had any prior spine surgeries) Exam Exam General Appearance: Normal HEENT: Normal ENT Inspection Neck: Normal, Normal Inspection Respiratory: No Accessory Muscle Use, No Respiratory Distress Cardiovascular: No Edema, No JVD, Normal Peripheral Pulses, Other (Skin is pink warm and dry) Gastrointestinal: Other (No complaints of nausea vomiting or diarrhea) Extremities: Normal capillary refill, Other (Patient able to move all extremities except there is a limitation on her left lower extremity, weakness and pain with resistance when moving left leg up) Neurologic: Alert, Normal Affect, Normal Mood Cerebellar Function: Normal Skin: Dry, Warm Plan Additional comments: The risks/benefits/alternatives of surgery were explained to the patient in detail including but not limited to , stroke, paralysis, myocardial infarction, bleeding, infection, complications of anesthesia (dry mouth, sore throat, dental damage, respiratory depression, blindness), postoperative infec tion, incomplete relief of symptoms, recurrence of symptoms, damage to blood vessels, nerves and tendons, pulmonary embolism and possible need for repeat surgery in the future. Pain, damage to surrounding soft tissue structures, need for reoperation or future surgery, persistent pain/disability/deformity, bone graft collapse or extrusion of interbody device, instrumentation failure, need for instrumentation removal, dural tear, temporary or permanent nerve root damage, deep vein thrombosis, pulmonary embolism, were described to the patient in detail and the patient wishes to proceed. No guarantee of surgical outcome/improvement was implied. All of the questions were answered thoroughly and consents were obtained. Call with questions Sergey Valdez [facility] Orthopaedic Spine Surgery nurse practitioner For Dr Pito Berry Patient was examined, chart reviewed, labs evaluated, and diagnostic studies and findings analyzed. Case was discussed with Dr. Prabhu Berry who formulated the plan of care. This medical document was created using an electronic medical record system with [employer] dictation system. Although this document has been carefully reviewed, there might still be some phonetic and typographical errors. These areas are purely typographical due to imperfections of the software programs, and do not reflect any compromise in the patient's medical care. DIANNE VALDEZ NP Dec 30, 2024 07:07
[2024-12-30] MEDS ORDERED: HYDROmorphone HCL 2 MG/ML VL/or syr ONE (07:08)
[2024-12-30] MEDS ORDERED: ETOMIDATE (2MG/ML) 20ML VIAL IV ONE (07:09)
[2024-12-30] MEDS: TRANEXAMIC ACID 20 ML ONE (07:14)
[2024-12-30] MEDS: ceFAZolin 1GM/50ML 0 ML IV ONE (07:21)
[2024-12-30] MEDS ORDERED: HYDROmorphone HCL 2 MG/ML VL/or syr IV PRN (07:30)
[2024-12-30] MEDS: ONDANSETRON HCL 4 MG/2 ML VIAL IV ONE (07:30)
[2024-12-30] MEDS ORDERED: ACETAMINOPHEN 325 MG TAB PO PRN (08:00)
[2024-12-30] MEDS ORDERED: MORPHINE SULFATE INJ 2 MG/ml SYRG IV PRN (08:00)
[2024-12-30] MEDS: D5W/SOD CHLO 0.9% 1,000 ML IV SCH (08:00)
[2024-12-30] MEDS: GELATIN 1 SPONGE SIZE 100 TOP ONE (09:48)
[2024-12-30] MEDS: THROMBIN (BOVINE) 5000 UNIT SOL VIAL ONE ×2 (09:54→09:55)
[2024-12-30] MEDS: DOCUSATE SOD 100 MG CAP PO SCH (10:00)
[2024-12-30] MEDS ORDERED: SUGAMMADEX 200mg/2ml Vial (100MG/ML) IV ONE (10:13)
--- NOTE | 2024-12-30 10:41 | DVHPNRES ---
Progress Note Date Seen: Dec 30, 2024 Resident Creating Document: SEJAL RODRIGEZ RESIDENT Medical Necessity Reason Pt with a Central, PICC or Fol: No Subjective Review of Systems On my initial assessment, patient was seen and examined at bedside. She currently states feeling well, denies any significant shortness of breath, chest pain, dysuria, nausea, vomiting, diarrhea, constipation, dizziness, lightheadedness. She was also complaining of a shooting pain on her left leg. She will undergo lumbar spine surgery today Objective vital signs Vital Sign Date Time Temp Pulse Resp B/P (MAP) Pulse Ox O2 Delivery O2 Flow Rate FiO2 12/30/24 05:00 97.8 85 16 156/70 (98) 96 97.8 12/29/24 20:00 Room Air* 0 21 Total Intake and Output 12/29/24 12/29/24 12/30/24 15:00 23:00 07:00 Intake Total 50 ml 800 ml 1300 ml Balance 50 ml 800 ml 1300 ml medications Current Medications Medications Dose Ordered Sig/Justin Route Start Time Stop Time Status Last Admin Dose Admin Pantoprazole Sodium 40 mg DAILY PO 12/29/24 10:00 12/29/24 09:43 40 MG Enoxaparin Sodium 40 mg DAILY SC 12/29/24 10:00 12/29/24 09:44 40 MG Amlodipine Besylate 10 mg DAILY PO 12/29/24 10:00 12/29/24 09:43 10 MG Ceftriaxone Sodium 50 ml @ 100 mls/hr DAILY IV 12/29/24 10:00 12/29/24 09:44 100 MLS/HR Gabapentin 300 mg HS PO 12/29/24 22:00 Al Hydrox/Mg Hydrox/Simethicone 30 ml Q8HP PRN PO 12/29/24 11:30 12/29/24 20:45 30 ML Dextrose/Sodium Chloride 1,000 ml @ 100 mls/hr Q10H IV 12/30/24 08:00 Ondansetron HCl 4 mg Q4HP PRN IV 12/30/24 08:00 Acetaminophen 650 mg Q6HP PRN PO 12/30/24 08:00 Acetaminophen/ Hydrocodone Bitart 2 tab Q6HP PRN PO 12/30/24 08:00 UNV Morphine Sulfate 4 mg Q4HP PRN IV 12/30/24 08:00 UNV Cyclobenzaprine HCl 10 mg TID PO 12/30/24 14:00 Docusate Sodium 100 mg BID PO 12/30/24 10:00 Cefazolin Sodium 50 ml @ 100 mls/hr Q8HR IV 12/30/24 14:00 01/01/25 06:29 UNV Examination Physical examination as below: General: Awake, alert, comfortable appearing, in no acute distress. HEENT: Head is normocephalic and atraumatic. Pupils are equal, round, and reactive to light. Extraocular muscles are intact. No nasal discharge. No facial trauma. Intraoral exam shows moist mucous membranes with no tonsillar enlargement or exudate. Neck: Supple with no cervical lymphadenopathy. Heart: Regular rate without murmur, rub, or gallop. Lungs: Equal breath sounds bilaterally with no wheezing, rales, or rhonchi. There is no chest wall tenderness or instability. Abdomen: No external sign of injury. Bowel sounds are present. Mild tenderness to palpation most prominent on an epigastric and periumbilical area Extremities: Strong peripheral pulses. There is no clubbing, no cyanosis, and no edema. Skin: No rash. Neurologic: Cranial nerves II-XII intact without motor, sensory, or cerebellar deficit, no asterixis. laboratory and microbiology Laboratory Tests 12/30/24 04:55 Test 12/30/24 04:55 Range/Units Serum Glucose 95 74-106 mg/dL Microbiology Date/Time Source Procedure Growth Status 12/29/24 03:30 Nose MRSA Screen - Final Complete 12/28/24 12:32 Voided Urine Urine Culture - Preliminary Resulted Labs and/or images reviewed: Labs reviewed by me, Image(s) reviewed by me Problem List/Assessment/Plan Problem List/Assessment/Plan # Severe pain in the right lower leg likely due to flare-up of sciatica, lumbar radiculopathy # Ruled out DVT - Knee CT demonstrated no acute fracture or dislocation, Multiple metallic densities in the soft tissues compatible with foreign bodies, Degenerative changes in the knee. - Doppler scan of the lower limb excluded the possibility of the DVT - Orthopedics on the board, patient will undergo lumbar spine procedure today by Dr. Berry. - DC IV Toradol - Physical therapy tomorrow, incentive spirometry # Acute complicated cystitis - Ordered urine bacterial culture, still pending - cefepime iv and vancomycin iv # GERD # history of Helicobacter pylori infection - Protonix 40 mg p.o. daily Aluminum, magnesium and simethicone as needed # DVT prophylaxis - Lovenox 40 mg sc daily Goal of Care discussed with the patient for more than 30 minutes full code Plan discussed with Dr. Park Plan discussed with: Patient, Other (RN) My Orders My Orders Orders - SEJAL RODRIGEZ Procedure Category Date Status Time Alum & Mag PHA 12/29/24 In Process Hydrox-Simethicone 11:30 Npo After Midnight ORDERS 12/29/24 Transmitted Npo (Nothing By DIET 12/30/24 Transmitted Mouth) Diet Breakfast Electrocardigram EKG 12/29/24 Logged 14:25 SEJAL RODRIGEZ RESIDENT Dec 30, 2024 10:40
--- NOTE | 2024-12-30 10:51 | DVHOP2 ---
Operative Report - 2 Report Details Date: 12/30/24 Preop Diagnosis: Severe lumbar spinal stenosis / spondylolisthesis causing neurogenic claudication and progressive neurologic deficit Postop Diagnosis: same as pre op Surgeon: Prabhu Berry MD Coating Manager: Mackenzie myers NP Anesthesiologist: Maryan Torres MD Anesthesia: General Consent: The patient was informed of the risks and benefits of the procedure. These include but are not limited to complications of anesthesia, postoperative infection, incomplete relief of symptoms, recurrence of symptoms, damage to blood vessels, nerves and tendons, deep venous thrombosis, pulmonary embolism and possible need for repeat surgery in the future. Name of Procedure Performed see detailed note Procedure Details Procedure Details: Pre-op Diagnosis: Lumbar Degenerative Disk Disease and Lumbar Spinal Stenosis causing Incapacitating back pain, radiculopathy and progressive neurologic deficit Post-op Diagnosis: Lumbar Degenerative Disk Disease and Lumbar Spinal Stenosis causing Incapacitating back pain, radiculopathy and progressive neurologic deficit Procedure: Lumbar 5 laminectomy with Lumbar 5 foraminotomies and facetectomies to decompress central canal and Lumbar 5 nerve roots Lumbar 4 laminectomy with Lumbar 4 foraminotomies and facetectomies to decompress central canal and Lumbar 4 nerve roots Lumbar 3 laminectomy with Lumbar 3 foraminotomies and facetectomies to decompress central canal and Lumbar 4 nerve roots Lumbar 3 to 5 posterior spinal inter transverse fusion with bone graft Lumbar 3 to 5 posterior spinal instrumentation with pedicle screws Local Bone Autograft For Fusion Allograft Bone Substitute (Bacterin) to augment Fusion Use of Demineralized Bone Matrix to Augment Fusion Microscope For Microdissection Surgeon: Prabhu Berry MD Assist: FLOR Mercedes Anesthesia: General Fluids and EBL: See anesthesia note Patient was seen in the Pre Anesthesia Care Unit (PACU) and the operative site was initialed by me. All questions were answered to the patients satisfaction and chart reviewed. The patient was taken to the operative room where pre- operative antibiotics were given 30 minutes prior to incision. General anesthesia was induced and neuro-monitoring leads placed. Moulton catheter was placed. The patient was turned prone onto the [facility] spinal table. While positioning, I made sure that the belly was free to allow proper expansion of the lungs. The hips were extended and all bony prominences padded. The shoulders were abducted 80 degree and the elbows flexed 100 degrees with no tension on the brachial plexus. I check the foot arterial pulses and they were palpable. The patient was prepped and draped and time out was taken at this time per usual protocol. At this time, the C-arm fluoroscope was brought in and was used to zahra the incision borders proximally and distally. Using a Number 10 Blade, an incision was made extending it proximally and distally per C arm zahra from the posterior spinous process of lumbar 4,5 down to the lumbo-dorsal fascia. All bleeding was controlled with electrocautery. Self-retaining retractors were placed. Electrocautery was then used to take down the lumbo- dorsal fascia, to free the muscle off the bone bilaterally. A [place] retractor was placed over the posterior spinous process proximally and a lateral C-arm fluoroscope image was taken to insure we were at the correct level. Next, using bovie electro cautery, The deep fascia laterally to the facet joints was removed to expose the transverse processes of lumbar 3, 4 and 5 while taking care to avoid injuring the facet capsule at the proximal end of the incision. Next, the microscope was bought in for visualization and using a Luxell rongeur, the posterior spinous process of lumbar 3 and 4 and 5 bone were removed and the bone was saved for use as local autograft. I used alternating Kerison 2 mm and 3 mm rongeurs to perform central laminectomies lumbar 5 and 4 and 3 to decompress the central canal. Next using alternating Kerison 2mm and 3 mm rongeurs, the superior articular facets of lumbar 3, 4 and 5 were removed bilaterally to decompress the lateral recess (facetectomies) and then extended proximally to decompress the foramen bilaterally (foraminotomies). I used a ball tipped nerve probed to insure that the respective nerve roots were able to be mobilized 5mm in each direction were unimpeded in the lateral recess and foramen. Next I carefully inspected the dura to make sure no durotomy was visible and it was not. I covered the exposed dura with gelfoam soaked in thrombin and the microscope was wheeled away from the operative filed. The C-arm fluoroscope was brought in and perfect AP views of the lumbar 4 and 5 pedicles were obtained. I placed bilateral pedicle screws at these levels by: using a Lenke awl to make a check pilot hole, then a ball tip robe to make sure there was no pedicle breach, then a tap to prepare the track and a 6.5 mm diameter 45 mm length pedicle screw was placed bilaterally at L3, L4 and 6.5X40mm at L5 . This step to place bilateral pedicle screws was repeated up to the lumbar 3, 4 and 5 level. Next, the c-arm fluoroscope took an AP and lateral x-ray to ensure proper placement of the pedicle screws. Next, the neuro-stimulation probe was placed over the tip of each screw and each screw stimulated only after a current greater than 10 mA was delivered to the screw. Next , I took a Midas Chilo Drill to decorticate the transverse process which were exposed and local bone graft, Bacterin allograft bone substitute and Demineralized bone matrix were placed along the inter transverse process intervals bilaterally (the fusion bed). Next a curved marysol sized to fit the pedicle screw interval was placed and secured to each pedicle screw using set screws, The set screws were tightened using a torque screwdriver (set to 10 N*M torque) to secure the marysol to the pedicle screws bilaterally. Final AP and lateral C arm fluoroscopic films were taken at this time. Next a 10 Tamazight diameter Hemovac drain was laced deep to the lumbo- dorsal fascia. The lumbo-dorsal fascia was closed with interrupted 0-Vicry sutures. The subcutaneous tissue was closed with interrupted 2-0 Vicryl sutures. The skin was closed with running 2-0 nylon suture. Sterile dressings were place. The pt. was turned supine onto the stretcher, extubated and taken to the recovery room in stable condition. Condition Stable Disposition Still a Patient PRABHU BERRY MD Dec 30, 2024 10:51
[2024-12-30] MEDS ORDERED: VANCOMYCIN PER PHARMACY 0 MG IV SCH (13:00)
--- NOTE | 2024-12-30 13:54 | DVH ---
CHEST RADIOGRAPH Indication: sob Technique: Single frontal view of the chest was obtained Comparison: XY CHEST PORTABLE on DOS: 12/29/24 FINDINGS: Lines and Tubes: None Lungs: No focal consolidation. Pleura: No effusion. No pneumothorax. Cardiomediastinal contours: Unremarkable Bones: No acute osseous abnormality. IMPRESSION: No acute cardiopulmonary disease.
[2024-12-30] MEDS ORDERED: ceFAZolin 1GM/50ML 50 ML IV SCH (14:00)
--- NOTE | 2024-12-30 14:26 | DVH ---
C-ARM FLUOROSCOPY: PROCEDURE: L3 through L5 lumbar fusion and decompression. FLUOROSCOPY TIME: 1 min 22 sec DAP: 65.34 mgy FINDINGS: Spot intraoperative C arm radiographs demonstrating L3 through L5 lumbar fusion and decompression.. IMPRESSION: Please refer to surgical report for detailed findings.
[2024-12-30] MEDS: ONDANSETRON HCL 4 MG/2 ML VIAL IV PRN (14:33)
[2024-12-30] MEDS: CEFEPIME 2GM/50ML NS 50 ML IV SCH (14:34)
[2024-12-30] MEDS: CYCLOBENZAPRINE HCL 10 MG TAB PO SCH (14:34)
[2024-12-30] MEDS: VANCOMYCIN 1GM/200ML PM 250 ML IV SCH (14:42)
[2024-12-30] MEDS: SODIUM CHLORIDE 0.9% 500 ML IV ONE (15:00)
--- NOTE | 2024-12-30 15:31 | ECG ---
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
[2024-12-30] MEDS: HYDROcodone-ACET 10/325MG TAB PO PRN (22:25)
[2024-12-31] VITALS (8 sets, daily range): BP systolic 112–146; BP diastolic 50–74; PULSE 74–95; RESP 16–18; TEMP 97.6–98.1; O2SAT 94–99
[2024-12-31] MEDS: VANCOMYCIN 750MG KIT 100 ML IV SCH (02:58)
[2024-12-31 07:21] LABS: Anion Gap 9 (5-15); Carbon Dioxide 24 mmol/L (20-31); Chloride 106 mmol/L (98-107); Potassium 3.8 mmol/L (3.5-5.1); Sodium 139 mmol/L (136-145)
[2024-12-31 07:22] LABS: Calcium 8.8 mg/dL (8.7-10.4)
[2024-12-31 07:27] LABS: BUN/Creatinine Ratio 9.5 (10.0-20.0); Glucose 92 mg/dL (74-106)
[2024-12-31 07:30] LABS: Blood Urea Nitrogen 8 mg/dL (9-23)
[2024-12-31 10:43] LABS: Basophils # (auto) 0 10 ^3/uL (0-0.2); Eosinophils # (auto) 0.1 10 ^3/uL (0-0.8); Lymphocytes # (auto) 1.5 10 ^3/uL (0.4-5.4); Neutrophils # (auto) 9.7 10 ^3/uL (1.6-8.6)
[2024-12-31 10:44] LABS: Basophils % (auto) 0.2 % (0.0-2.0); Eosinophils % (auto) 0.5 % (0.0-7.0); Hemoglobin 10.2 g/dL (12.2-16.2); Lymphocytes % (auto) 12.3 % (10.0-50.0); Mean Corpuscular Hemoglobin 25.3 pg (28.0-32.0); Mean Corpuscular Hgb Conc. 31.9 g/dL (32.0-36.0); Mean Corpuscular Volume 79.3 fL (80.0-100.0); Monocytes # (auto) 0.7 10 ^3/uL (0-1.3); Platelet Count (auto) 540 10^3/uL (140-450); Red Blood Cells 4.03 10^6/uL (4.0-5.20); Red Cell Distribution Width 15.4 % (11.8-14.3)
[2024-12-31] MEDS: diphenhdrAMINE HCL 50 MG/1 ML VL IV ONE ×2 (12:09→19:00)
[2024-12-31] MEDS: cefTRIAXone 1GM/50ML D5W 50 ML IV SCH (12:51)
--- NOTE | 2024-12-31 14:03 | ECG ---
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
[2024-12-31] MEDS: CEFEPIME 1GM/ 50ML 50 ML IV SCH (14:13)
--- NOTE | 2024-12-31 14:16 | DVHPNRES ---
Progress Note Date Seen: Dec 31, 2024 Resident Creating Document: SEJAL RODRIGEZ RESIDENT Medical Necessity Reason Pt with a Central, PICC or Fol: No Subjective Review of Systems On my assessment, patient was seen and examined at bedside. She currently states feeling well, denies any significant shortness of breath, chest pain, dysuria, nausea, vomiting, diarrhea, constipation, dizziness, lightheadedness. Patient underwent lumbar surgery yesterday, no complications noted, two drains were placed, patient had laminectomies, 6 screws were placed on L5-L4 and L3. Objective vital signs Vital Sign Date Time Temp Pulse Resp B/P (MAP) Pulse Ox O2 Delivery O2 Flow Rate FiO2 12/31/24 12:56 97.8 83 16 118/50 (72) 98 97.8 12/31/24 08:00 Nasal Cannula* 2 28 Total Intake and Output 12/30/24 12/30/24 12/31/24 15:00 23:00 07:00 Intake Total 1000 ml 550 ml Output Total 150 ml Balance 850 ml 550 ml medications Current Medications Medications Dose Ordered Sig/Justin Route Start Time Stop Time Status Last Admin Dose Admin Pantoprazole Sodium 40 mg DAILY PO 12/29/24 10:00 12/31/24 09:23 40 MG Enoxaparin Sodium 40 mg DAILY SC 12/29/24 10:00 12/31/24 09:24 40 MG Amlodipine Besylate 10 mg DAILY PO 12/29/24 10:00 12/29/24 09:43 10 MG Gabapentin 300 mg HS PO 12/29/24 22:00 Al Hydrox/Mg Hydrox/Simethicone 30 ml Q8HP PRN PO 12/29/24 11:30 12/29/24 20:45 30 ML Ondansetron HCl 4 mg Q4HP PRN IV 12/30/24 08:00 12/30/24 14:33 4 MG Acetaminophen 650 mg Q6HP PRN PO 12/30/24 08:00 Acetaminophen/ Hydrocodone Bitart 2 tab Q6HP PRN PO 12/30/24 08:00 12/31/24 12:52 2 TAB Morphine Sulfate 4 mg Q4HP PRN IV 12/30/24 08:00 Cyclobenzaprine HCl 10 mg TID PO 12/30/24 14:00 12/30/24 14:34 10 MG Docusate Sodium 100 mg BID PO 12/30/24 10:00 Cefepime HCl 50 ml @ 12.5 mls/hr Q8HR IV 12/31/24 14:00 Diphenhydramine HCl 25 mg Q6HP PRN PO 12/31/24 13:00 Examination Physical examination as below: General: Awake, alert, comfortable appearing, in no acute distress. HEENT: Head is normocephalic and atraumatic. Pupils are equal, round, and reactive to light. Extraocular muscles are intact. No nasal discharge. No facial trauma. Intraoral exam shows moist mucous membranes with no tonsillar enlargement or exudate. Neck: Supple with no cervical lymphadenopathy. Heart: Regular rate without murmur, rub, or gallop. Lungs: Equal breath sounds bilaterally with no wheezing, rales, or rhonchi. There is no chest wall tenderness or instability. Abdomen: No external sign of injury. Bowel sounds are present. Mild tenderness to palpation most prominent on an epigastric and periumbilical area Extremities: Strong peripheral pulses. There is no clubbing, no cyanosis, and no edema. Skin: No rash. Neurologic: Cranial nerves II-XII intact without motor, sensory, or cerebellar deficit, no asterixis. laboratory and microbiology Laboratory Tests 12/31/24 06:07 Test 12/31/24 06:07 Range/Units Serum Glucose 92 74-106 mg/dL Microbiology Date/Time Source Procedure Growth Status 12/29/24 03:30 Nose MRSA Screen - Final Complete 12/28/24 12:32 Voided Urine Urine Culture - Final Complete Labs and/or images reviewed: Labs reviewed by me, Image(s) reviewed by me Problem List/Assessment/Plan Problem List/Assessment/Plan # Severe pain in the right lower leg likely due to flare-up of sciatica, lumbar radiculopathy status post lumbar surgery, laminectomy, screw placements # Ruled out DVT - Knee CT demonstrated no acute fracture or dislocation, Multiple metallic densities in the soft tissues compatible with foreign bodies, Degenerative changes in the knee. - Orthopedics on the board, patient will undergo lumbar spine procedure today by Dr. Berry. continue pain meds: norco prn - Physical therapy, incentive spirometry Patient was able to walk 8 ft today # Acute complicated cystitis repeat urine cx - cefepime iv and vancomycin iv(administer in a slow function) # GERD # history of Helicobacter pylori infection - Protonix 40 mg p.o. daily Aluminum, magnesium and simethicone as needed # DVT prophylaxis - Lovenox 40 mg sc daily Goals of care discussed with the patient for more than 30 minutes full code Plan discussed with Dr. Milner Plan discussed with: Patient, Other (RN) My Orders My Orders Orders - SEJAL RODRIGEZ Procedure Category Date Status Time Vancomycin Per TARIK 01/01/25 In Process Pharmacy Protoc 14:00 Basic Metabolic Panel LAB 01/01/25 Verified 04:00 Electrocardigram EKG 12/30/24 Logged 21:28 Regular Diet DIET 12/31/24 Transmitted Breakfast Cefepime 1gm/ 50ml PHA 12/31/24 In Process (Maxipime 1gm/50ml) 14:00 Diphenhdramine PHA 12/31/24 In Process Capsule (Benadryl 13:00 Dietary Evaluation Review Comments: 1. Agree with Vegetrian diet per pt preference 2. Monitor PO intake post-op, will assess need for ONS on FU pending PO 3. Good pain management, especially prior to pt attmepting meals Expected Outcomes/Goals: Adequate oral intakes, post-op healing, enhanced recover after surgery. Date of Service: Dec 31, 2024 Billing Provider: NELI MILNER MD Common Visit Codes: [id number] INP/OBS CARE(HIGH) SEJAL RODRIGEZ RESIDENT Dec 31, 2024 14:16 NELI MILNER MD Dec 31, 2024 20:41
[2025-01-01] VITALS (13 sets, daily range): BP systolic 104–164; BP diastolic 58–77; PULSE 84–117; RESP 15–18; TEMP 97.9–98.4; O2SAT 90–100
[2025-01-01] MEDS: diphenhdrAMINE HCL 25 MG CAP PO PRN (00:24)
[2025-01-01 06:12] LABS: Basophils # (auto) 0 10 ^3/uL (0-0.2); Eosinophils # (auto) 0.2 10 ^3/uL (0-0.8); Hemoglobin 10.1 g/dL (12.2-16.2); Lymphocytes # (auto) 1.6 10 ^3/uL (0.4-5.4); Mean Corpuscular Hemoglobin 26.1 pg (28.0-32.0); Mean Corpuscular Hgb Conc. 33.2 g/dL (32.0-36.0); Monocytes # (auto) 0.7 10 ^3/uL (0-1.3); Red Cell Distribution Width 15.6 % (11.8-14.3)
[2025-01-01 06:15] LABS: Basophils % (auto) 0.4 % (0.0-2.0); Eosinophils % (auto) 1.6 % (0.0-7.0); Hematocrit 30.3 % (36.0-46.0); Lymphocytes % (auto) 13.8 % (10.0-50.0); Mean Corpuscular Volume 78.6 fL (80.0-100.0); Monocytes % (auto) 6.1 % (0.0-12.0); Neutrophils # (auto) 8.8 10 ^3/uL (1.6-8.6); Neutrophils % (auto) 78.1 % (37.0-80.0); Platelet Count (auto) 568 10^3/uL (140-450); Red Blood Cells 3.86 10^6/uL (4.0-5.20); White Blood Cell 11.3 10^3/uL (4.4-10.8)
[2025-01-01 06:21] LABS: Potassium 3.8 mmol/L (3.5-5.1); Sodium 141 mmol/L (136-145)
[2025-01-01 06:22] LABS: Anion Gap 8 (5-15); Carbon Dioxide 24 mmol/L (20-31)
[2025-01-01 06:28] LABS: BUN/Creatinine Ratio 8.3 (10.0-20.0); Glucose 100 mg/dL (74-106)
[2025-01-01 06:31] LABS: Blood Urea Nitrogen 8 mg/dL (9-23); Chloride 109 mmol/L (98-107)
[2025-01-01] MEDS ORDERED: VANCOMYCIN PER PHARMACY 0 MG IV SCH (07:45)
--- NOTE | 2025-01-01 10:24 | DVHPNRES ---
Progress Note Date Seen: Jan 01, 2025 Resident Creating Document: SEJAL RODRIGEZ RESIDENT Medical Necessity Reason Pt with a Central, PICC or Fol: No Subjective Review of Systems On my assessment, patient was seen and examined at bedside. She currently states feeling well, denies any significant shortness of breath, chest pain, dysuria, nausea, vomiting, diarrhea, constipation, dizziness, lightheadedness. Patient was able to walk 8 ft yesterday, continue PT. Today she seemed more weak, she was able to stand with PT. Transfer summary: This is a 64 years old female who presented to the ED with a chief complaint of left knee and leg pain since 11:00 a.m. prior to this admission. Past Medical History: bronchial asthma, hypertension, degenerative disc disease, GERD, sciatica Past Surgical History: C- section, knee surgery, status post amputation of the right foot Family History: No significant family history Past Social History: Lives with family. Nonsmoker, nonalcoholic and never tried any drugs The patient states that today in the morning when she was wearing socks she suddenly pain she suddenly felt sharp shooting pain started from the lower back on the left side and radiate to her legs and she was not able to move or bend the knee. She also mentioned she had the same pain 2 weeks on the rt side. She denies , chills, point tenderness on the back, saddle anesthesia, incontinence of the bowel and bladder, hematuria or any other sick contact. On my initial assessment, patient was seen and examined at bedside. She currently states feeling well, denies any significant shortness of breath, chest pain, dysuria, nausea, vomiting, diarrhea, constipation, dizziness, lightheadedness. She's currently tolerating diet. Patient is currently only complaining about [id number] abdominal pain, most prominent in the periumbilical area and epigastric. She was also complaining of a shooting pain on her left leg. She underwent lumbar surgery for her lumbar radiculopathy, a laminectomy with screws placement in L5, L4 and L3. No complications were noted. Patient was started on vancomycin and cefepime. Patient has been experiencing itchiness, but no hives, no swelling, no shortness a breath, she was on Benadryl but she was getting too somnolent and weak, switched to loratadine. Patient states feeling better, she stated have two TYRON drains on her surgical site draining sanguinous fluid. She has been physical therapy, and she will be discharged with home health physical therapy, social welfare administrator has a already been consulted. Objective vital signs Vital Sign Date Time Temp Pulse Resp B/P (MAP) Pulse Ox O2 Delivery O2 Flow Rate FiO2 01/01/25 09:00 97.9 95 15 127/63 (84) 90 97.9 01/01/25 07:30 Room Air* 0 21 Total Intake and Output 12/31/24 12/31/24 01/01/25 15:00 23:00 07:00 Intake Total 200 ml 1600 ml 900 ml Output Total 45 ml Balance 200 ml 1555 ml 900 ml medications Current Medications Medications Dose Ordered Sig/Justin Route Start Time Stop Time Status Last Admin Dose Admin Pantoprazole Sodium 40 mg DAILY PO 12/29/24 10:00 01/01/25 08:54 40 MG Enoxaparin Sodium 40 mg DAILY SC 12/29/24 10:00 01/01/25 08:54 40 MG Amlodipine Besylate 10 mg DAILY PO 12/29/24 10:00 12/29/24 09:43 10 MG Gabapentin 300 mg HS PO 12/29/24 22:00 Al Hydrox/Mg Hydrox/Simethicone 30 ml Q8HP PRN PO 12/29/24 11:30 12/29/24 20:45 30 ML Ondansetron HCl 4 mg Q4HP PRN IV 12/30/24 08:00 12/30/24 14:33 4 MG Acetaminophen 650 mg Q6HP PRN PO 12/30/24 08:00 Acetaminophen/ Hydrocodone Bitart 2 tab Q6HP PRN PO 12/30/24 08:00 01/01/25 06:34 2 TAB Cefepime HCl 50 ml @ 12.5 mls/hr Q8HR IV 12/31/24 14:00 01/01/25 05:22 12.5 MLS/HR Cyclobenzaprine HCl 10 mg TIDP PRN PO 01/01/25 07:45 Docusate Sodium 100 mg BIDPRN PRN PO 01/01/25 07:45 Vancomycin HCl 0 ml @ 0 mls/hr UD IV 01/01/25 07:45 Vancomycin HCl 100 ml @ 100 mls/hr Q12H IV 01/01/25 10:00 Loratadine 10 mg DAILY PO 01/01/25 10:00 UNV Examination Physical examination as below: General: Awake, alert, comfortable appearing, in no acute distress. HEENT: Head is normocephalic and atraumatic. Pupils are equal, round, and reactive to light. Extraocular muscles are intact. No nasal discharge. No facial trauma. Intraoral exam shows moist mucous membranes with no tonsillar enlargement or exudate. Neck: Supple with no cervical lymphadenopathy. Heart: Regular rate without murmur, rub, or gallop. Lungs: Equal breath sounds bilaterally with no wheezing, rales, or rhonchi. There is no chest wall tenderness or instability. Abdomen: No external sign of injury. Bowel sounds are present. 2 TYRON drains, draining sanguineous fluid Extremities: Strong peripheral pulses. There is no clubbing, no cyanosis, and no edema. Skin: No rash. Neurologic: Cranial nerves II-XII intact without motor, sensory, or cerebellar deficit, no asterixis. laboratory and microbiology Laboratory Tests 01/01/25 04:53 Test 01/01/25 04:53 Range/Units Serum Glucose 100 74-106 mg/dL Microbiology Date/Time Source Procedure Growth Status 12/29/24 03:30 Nose MRSA Screen - Final Complete 12/28/24 12:32 Voided Urine Urine Culture - Final Complete Labs and/or images reviewed: Labs reviewed by me, Image(s) reviewed by me Problem List/Assessment/Plan Problem List/Assessment/Plan # Severe pain in the right lower leg likely due to flare-up of sciatica, lumbar radiculopathy status post lumbar surgery, laminectomy, screw placements # Ruled out DVT - Knee CT demonstrated no acute fracture or dislocation, Multiple metallic densities in the soft tissues compatible with foreign bodies, Degenerative changes in the knee. - Orthopedics on the board, patient will undergo lumbar spine procedure today by Dr. Berry. continue pain meds: norco prn - Physical therapy, incentive spirometry Patient was able to walk 8 ft yesterday, continue PT Consult [facility] for home pt and dme # Acute complicated cystitis repeat urine cx - cefepime iv and vancomycin iv(administer in a slow infusion) # GERD # history of Helicobacter pylori infection - Protonix 40 mg p.o. daily Aluminum, magnesium and simethicone as needed # DVT prophylaxis - Lovenox 40 mg sc daily Goals of care discussed with the patient for more than 30 minutes full code Plan discussed with Dr. Milner Plan discussed with: Patient, Other (RN) My Orders My Orders Orders - SEJAL RODRIGEZ RESIDENT Procedure Category Date Status Time Cefepime 1gm/ 50ml PHA 12/31/24 In Process (Maxipime 1gm/50ml) 14:00 Urine Bacterial KIMBERLY 12/31/24 Logged Culture 16:09 Cyclobenzaprine PHA 01/01/25 In Process Tablet (Flexeril 07:45 Docusate Sodium PHA 01/01/25 In Process Capsule (Colace 07:45 Vancomycin Per PHA 01/01/25 In Process Pharmacy 07:45 Vancomycin 750mg Kit PHA 01/01/25 In Process (Vancomycin Hcl) 10:00 Complete Blood Count LAB 01/02/25 Verified 04:00 Creatinine LAB 01/02/25 Verified 04:00 Vancomycin,Trough LAB 01/02/25 Verified 21:00 Vancomycin Per TARIK 01/02/25 In Process Pharmacy Protoc 21:00 Insert Midline ORDERS 01/01/25 Transmitted 09:54 Loratadine Tablet PHA 01/01/25 Logged (Claritin Tablet) 10:00 Dietary Evaluation Review Comments: 1. Agree with Vegetrian diet per pt preference 2. Monitor PO intake post-op, will assess need for ONS on FU pending PO 3. Good pain management, especially prior to pt attmepting meals Expected Outcomes/Goals: Adequate oral intakes, post-op healing, enhanced recover after surgery. Date of Service: Jan 01, 2025 Billing Provider: NELI MILNER MD Common Visit Codes: [id number] INP/OBS CARE(HIGH) SJEAL RODRIGEZ RESIDENT Jan 01, 2025 10:24 NELI MILNER MD Jan 01, 2025 20:41
[2025-01-01] MEDS: LORATADINE 10 MG TAB PO SCH (11:28)
[2025-01-01] MEDS: VANCOMYCIN 750MG KIT 100 ML IV SCH (11:30)
[2025-01-01] MEDS ORDERED: ALBUTEROL SULF 2.5 MG/0.5ML(0.5%) NEB SOLN NEB PRN (15:15)
[2025-01-01] MEDS: ALBUTEROL SULF 2.5 MG/0.5ML(0.5%) NEB SOLN NEB ONE (15:47)
[2025-01-01] MEDS: IPRATROPIUM BROM 0.5 MG/2.5ML INH SOL NEB ONE (15:47)
[2025-01-02] VITALS (9 sets, daily range): BP systolic 124–164; BP diastolic 56–74; PULSE 88–103; RESP 16–18; TEMP 97.7–98.3; O2SAT 91–97
[2025-01-02 05:27] LABS: Basophils # (auto) 0.1 10 ^3/uL (0-0.2); Basophils % (auto) 0.8 % (0.0-2.0); Eosinophils # (auto) 0.2 10 ^3/uL (0-0.8); Eosinophils % (auto) 1.6 % (0.0-7.0); Hemoglobin 9.8 g/dL (12.2-16.2); Lymphocytes # (auto) 1.5 10 ^3/uL (0.4-5.4); Monocytes # (auto) 0.8 10 ^3/uL (0-1.3)
[2025-01-02 05:29] LABS: Hematocrit 29.4 % (36.0-46.0); Lymphocytes % (auto) 12.7 % (10.0-50.0); Mean Corpuscular Hgb Conc. 33.2 g/dL (32.0-36.0); Mean Corpuscular Volume 78.3 fL (80.0-100.0); Monocytes % (auto) 6.5 % (0.0-12.0); Neutrophils # (auto) 9.4 10 ^3/uL (1.6-8.6); Neutrophils % (auto) 78.4 % (37.0-80.0); Platelet Count (auto) 578 10^3/uL (140-450); Red Blood Cells 3.76 10^6/uL (4.0-5.20); Red Cell Distribution Width 15.3 % (11.8-14.3)
[2025-01-02 05:31] LABS: Chloride 106 mmol/L (98-107); Sodium 141 mmol/L (136-145)
[2025-01-02 05:32] LABS: Anion Gap 9 (5-15); Carbon Dioxide 26 mmol/L (20-31)
[2025-01-02 05:37] LABS: BUN/Creatinine Ratio 8.4 (10.0-20.0); Glucose 105 mg/dL (74-106); Magnesium 1.9 mg/dL (1.6-2.6)
[2025-01-02 05:41] LABS: Blood Urea Nitrogen 7 mg/dL (9-23); Potassium 3.5 mmol/L (3.5-5.1)
[2025-01-02 10:13] LABS: Urine Bacteria None Seen /hpf (None Seen)
[2025-01-02 10:26] LABS: Urine Blood Negative /uL (Negative); Urine Budding Yeast OCCASIONAL /hpf (None Seen); Urine Clarity Turbid (Clear); Urine Color Light-Yellow (Yellow); Urine Mucus FEW (None Seen); Urine Protein, UAD Negative (Negative); Urine Specific Gravity 1.012 (1.001-1.035); Urine Squamous Epithelial Cell FEW /hpf (<5); Urine Urobilinogen Normal (Negative); Urine WBC 39 /HPF (0-5); Urine pH 5.5 (5.0-9.0)
--- NOTE | 2025-01-02 14:06 | DVHPNRES ---
Progress Note Date Seen: Jan 02, 2025 Resident Creating Document: JACKIE HUGO RESIDENT Has the PT tested + for MRSA If YES, has PT been informed?: No Medical Necessity Reason Pt with a Central, PICC or Fol: No Subjective Review of Systems This is a 64-year-old female with past medical history of bronchial asthma, hypertension, GERD, sciatica, degenerative disc disease who presented to the ED with chief complaint of lower back pain radiating to bilateral lower extremities that was worse to the left side. On admission, the patient reported a severe lower back pain radiating to the left lower extremity which she reported that it was impacting her daily activities making difficult to straighten her leg and bearing weight while she tries to stand up. The patient underwent lumbar spine surgery on 12/30/2024 due to severe lumbar spine stenosis causing neurogenic claudication and progressive neurologic deficits. Laminectomy and six screws were placed through L3-L5. Patient is currently on recovery status post surgery. Patient seen and examined at bedside. Patient states that he is feeling better overall. The patient denied any motor or sensory deficits in either upper or lower extremities at this time. The patient is able to move both lower extremities without any difficulty. The patient still reports mild back pain that is expected after surgery but has been well controlled with pain medication. Patient will continue with physical therapy and IV antibiotics both vancomycin and cefepime due to elevated WBC of unknown source at this time. We will like to continue antibiotics to prevent any post surgical infection. Chest x-ray was grossly unremarkable at this time. Patient is currently receiving DVT prophylaxis with enoxaparin at this time. We will continue current medical management and continue evaluating the patient daily ROS Constitutional: Denies weight loss, fever and chills. HEENT: Denies changes in vision and hearing. Respiratory: Denies shortness of breath and cough Cardiovascular: Denies chest discomfort or palpitations GI: Denies abdominal pain, nausea, vomiting and diarrhea. : Denies dysuria and urinary frequency. Musculoskeletal: Reports mild lumbar pain which is expected after surgery. Denies myalgias and joint pain Skin: Denies rash and pruritus. Neurological: Denies dizziness, headache, vision or hearing problems Objective vital signs Vital Sign Date Time Temp Pulse Resp B/P (MAP) Pulse Ox O2 Delivery O2 Flow Rate FiO2 01/02/25 12:04 94 Room Air* 0 21 01/02/25 09:57 150/70 4/6/25 08:30 98.3 95 16 98.3 Total Intake and Output 01/01/25 01/01/25 01/02/25 15:00 23:00 07:00 Intake Total 800 ml 600 ml Output Total 75 ml 40 ml Balance 725 ml 560 ml medications Current Medications Medications Dose Ordered Sig/Justin Route Start Time Stop Time Status Last Admin Dose Admin Pantoprazole Sodium 40 mg DAILY PO 12/29/24 10:00 01/02/25 09:57 40 MG Enoxaparin Sodium 40 mg DAILY SC 12/29/24 10:00 01/02/25 09:56 40 MG Amlodipine Besylate 10 mg DAILY PO 12/29/24 10:00 01/02/25 09:57 10 MG Gabapentin 300 mg HS PO 12/29/24 22:00 Al Hydrox/Mg Hydrox/Simethicone 30 ml Q8HP PRN PO 12/29/24 11:30 12/29/24 20:45 30 ML Ondansetron HCl 4 mg Q4HP PRN IV 12/30/24 08:00 12/30/24 14:33 4 MG Acetaminophen 650 mg Q6HP PRN PO 12/30/24 08:00 Acetaminophen/ Hydrocodone Bitart 2 tab Q6HP PRN PO 12/30/24 08:00 01/02/25 08:05 2 TAB Cefepime HCl 50 ml @ 12.5 mls/hr Q8HR IV 12/31/24 14:00 01/02/25 13:17 12.5 MLS/HR Cyclobenzaprine HCl 10 mg TIDP PRN PO 01/01/25 07:45 Docusate Sodium 100 mg BIDPRN PRN PO 01/01/25 07:45 Vancomycin HCl 0 ml @ 0 mls/hr UD IV 01/01/25 07:45 Loratadine 10 mg DAILY PO 01/01/25 10:00 01/02/25 09:57 10 MG Albuterol 2.5 mg Q8HPRN PRN NEB 01/01/25 15:15 Ipratropium [place] 0.5 mg Q8HPRN PRN NEB 01/01/25 15:15 Vancomycin HCl 150 ml @ 150 mls/hr Q12HR IV 01/02/25 22:00 Examination Physical Examination General: Patient alert and oriented in person, place and time. Patient following commands. HEENT: Normocephalic, atraumatic, moist mucous membranes Respiratory/pulmonary: Clear lungs bilaterally, vesicular murmurs present in almost all lung [place], no associated crackles or wheezes. Cardiovascular: Normal heart sounds S1 and S2 with no associated murmurs Abdomen: Abdomen nondistended, there is no pain to palpation in any of the abdominal quadrants, no palpable masses. Extremities: There is no peripheral edema present at the lower extremities. Peripheral Pulses: 3+ Radial (R). 3+ Radial (L). 3+ Dorsalis pedis (R). 3+ Dorsalis pedis(L) Skin: No rashes or pruritus, there is no sacral edema present at this time. Neurological: Intact cranial nerves with no focal neurologic deficits laboratory and microbiology Laboratory Tests 01/02/25 04:58 Test 01/02/25 04:58 Range/Units Serum Glucose 105 74-106 mg/dL Microbiology Date/Time Source Procedure Growth Status 12/29/24 03:30 Nose MRSA Screen - Final Complete 12/28/24 12:32 Voided Urine Urine Culture - Final Complete Problem List/Assessment/Plan Problem List/Assessment/Plan Assessment/Plan Severe lumbar spine stenosis with neurogenic claudication and progressive neurologic deficits including sciatica and lumbar radiculopathy Status post lumbar laminectomies with six screws placed through L3-L5 -patient had lumbar spine surgery on 12/30/[address] Berry -continue physical therapy -continue pain medication as needed, [place] and cyclobenzaprine -patient has been able to walk with physical therapy -dialysis social worker is on board and approved four weeks of physical therapy and wound care at home. -continue DVT prophylaxis with enoxaparin Ruled out DVT -lower extremity venous Doppler showed no evidence of neither right or left lower extremity DVT -continue DVT prophylaxis after surgery Acute complicated cystitis -initial urine culture showed more than three colonies growth which could be due to contamination or true infection -we will repeat urine culture -meanwhile patient will be covered with vancomycin and cefepime Mild itchy reaction to vancomycin -decrease the rate of vancomycin infusion -pre load the patient with Benadryl IV single dose before infusion GERD -pantoprazole 40 mg po daily Asthma, well controlled -monitor Primary hypertension -start amlodipine 10 mg daily -monitor blood pressure closely DVT prophylaxis, with the enoxaparin Goals of care discussed with the patient at bedside and for > 25min, FULL CODE Plan discussed with Dr. Milner Plan discussed with: Patient My Orders My Orders Orders - JACKIE HUGO Procedure Category Date Status Time Diphenhdramine PHA 01/02/25 Logged Injection (Benadryl 13:45 Dietary Evaluation Review Comments: 1. Agree with Vegetrian diet per pt preference 2. Monitor PO intake post-op, will assess need for ONS on FU pending PO 3. Good pain management, especially prior to pt attmepting meals Expected Outcomes/Goals: Adequate oral intakes, post-op healing, enhanced recover after surgery. Date of Service: Jan 02, 2025 Billing Provider: NELI MILNER MD Common Visit Codes: [id number] INP/OBS CARE(HIGH) JACKIE HUGO RESIDENT Jan 02, 2025 14:06 NELI MILNER MD Jan 02, 2025 22:56
[2025-01-02] MEDS: amLODIPine BESYLATE 5 MG TAB PO SCH (20:00)
[2025-01-02] MEDS: diphenhdrAMINE HCL 50 MG/1 ML VL IV ONE (21:13)
[2025-01-02] MEDS: VANCOMYCIN 750mg/150ml 150 ML IV SCH (22:07)
[2025-01-03] VITALS (10 sets, daily range): BP systolic 124–156; BP diastolic 62–78; PULSE 83–103; RESP 14–20; TEMP 97.5–99.1; O2SAT 91–97
[2025-01-03 07:35] LABS: Basophils # (auto) 0.1 10 ^3/uL (0-0.2); Eosinophils # (auto) 0.4 10 ^3/uL (0-0.8); Hematocrit 28.6 % (36.0-46.0); Hemoglobin 9.8 g/dL (12.2-16.2); Lymphocytes # (auto) 1.6 10 ^3/uL (0.4-5.4); Monocytes # (auto) 0.8 10 ^3/uL (0-1.3); Neutrophils % (auto) 77.1 % (37.0-80.0)
[2025-01-03 07:41] LABS: Basophils % (auto) 0.9 % (0.0-2.0); Eosinophils % (auto) 3.4 % (0.0-7.0); Lymphocytes % (auto) 12.3 % (10.0-50.0); Mean Corpuscular Hemoglobin 26.5 pg (28.0-32.0); Mean Corpuscular Hgb Conc. 34.2 g/dL (32.0-36.0); Mean Corpuscular Volume 77.5 fL (80.0-100.0); Monocytes % (auto) 6.3 % (0.0-12.0); Neutrophils # (auto) 9.7 10 ^3/uL (1.6-8.6); Platelet Count (auto) 588 10^3/uL (140-450); Red Blood Cells 3.69 10^6/uL (4.0-5.20); White Blood Cell 12.6 10^3/uL (4.4-10.8)
[2025-01-03 07:44] LABS: Albumin 3.6 g/dL (3.2-4.8); Alkaline Phosphatase 113 U/L (46-116); Anion Gap 7 (5-15); Aspartate Aminotransferase 30 U/L (13-40); BUN/Creatinine Ratio 9.3 (10.0-20.0); Calcium 8.9 mg/dL (8.7-10.4); Carbon Dioxide 29 mmol/L (20-31); Chloride 104 mmol/L (98-107); Sodium 140 mmol/L (136-145); Total Protein 6.1 g/dL (5.7-8.2)
[2025-01-03 07:45] LABS: Alanine Aminotransferase 41 U/L (7-40); Blood Urea Nitrogen 7 mg/dL (9-23); Glucose 111 mg/dL (74-106); Potassium 3.2 mmol/L (3.5-5.1)
[2025-01-03 07:46] LABS: Bilirubin, Total 0.3 mg/dL (0.2-1.0)
--- NOTE | 2025-01-03 07:46 | DVHPN2 ---
Progress Note - Surgical Date Seen: Jan 03, 2025 Post op day Post op day: 4 Subjective Patient reports: No new complaints, Feels better Review of Systems: HEENT:Normal, CVS:Normal, RESPIRATORY:Normal, GI:Normal, :Normal, MSK:Normal, NEURO:Normal Objective Vital signs Vital Sign Date Time Temp Pulse Resp B/P (MAP) Pulse Ox O2 Delivery O2 Flow Rate FiO2 01/03/25 05:00 98.3 93 17 156/78 (104) 95 98.3 01/02/25 20:49 Room Air* 0 21 Total Intake and Output 01/02/25 01/02/25 01/03/25 14:59 22:59 06:59 Intake Total 100 ml 50 ml 200 ml Output Total 64 ml 52 ml Balance 36 ml 50 ml 148 ml Medications Current Medications Medications Dose Ordered Sig/Justin Route Start Time Stop Time Status Last Admin Dose Admin Pantoprazole Sodium 40 mg DAILY PO 12/29/24 10:00 01/02/25 09:57 40 MG Enoxaparin Sodium 40 mg DAILY SC 12/29/24 10:00 01/02/25 09:56 40 MG Gabapentin 300 mg HS PO 12/29/24 22:00 Al Hydrox/Mg Hydrox/Simethicone 30 ml Q8HP PRN PO 12/29/24 11:30 12/29/24 20:45 30 ML Ondansetron HCl 4 mg Q4HP PRN IV 12/30/24 08:00 12/30/24 14:33 4 MG Acetaminophen 650 mg Q6HP PRN PO 12/30/24 08:00 Acetaminophen/ Hydrocodone Bitart 2 tab Q6HP PRN PO 12/30/24 08:00 01/02/25 20:19 2 TAB Cefepime HCl 50 ml @ 12.5 mls/hr Q8HR IV 12/31/24 14:00 01/03/25 06:05 12.5 MLS/HR Cyclobenzaprine HCl 10 mg TIDP PRN PO 01/01/25 07:45 Docusate Sodium 100 mg BIDPRN PRN PO 01/01/25 07:45 Vancomycin HCl 0 ml @ 0 mls/hr UD IV 01/01/25 07:45 Loratadine 10 mg DAILY PO 01/01/25 10:00 01/02/25 09:57 10 MG Albuterol 2.5 mg Q8HPRN PRN NEB 01/01/25 15:15 Ipratropium [place] 0.5 mg Q8HPRN PRN NEB 01/01/25 15:15 Vancomycin HCl 150 ml @ 150 mls/hr Q12HR IV 01/02/25 22:00 01/02/25 22:07 150 MLS/HR Amlodipine Besylate 10 mg DAILY PO 01/02/25 20:00 Laboratory Laboratory Tests 01/03/25 06:50 Test 01/03/25 06:50 Range/Units Serum Glucose 111 H 74-106 mg/dL Microbiology Date/Time Source Procedure Growth Status 01/02/25 10:00 Voided Urine Urine Culture - Preliminary Resulted 12/29/24 03:30 Nose MRSA Screen - Final Complete Examination: GENERAL:Normal, HEENT:Normal, NECK:Normal, LUNGS:Normal, CVS:Normal, ABDOMEN:Normal, MSK:Normal (moving all extremties), SKIN:Normal (orlin intact, drains DC x 2 ), NEURO:Normal (verbalized improvment ), :Normal Problem List/Assessment/Plan Problems: (1) Muscle spasm of back (2) Lumbar stenosis with neurogenic claudication Assessment and Plan Patient seen by DR Berry personally -Disposition: -Pending -Discharge RX: pending -Follow up appointment: with Dr Berry pending [id number] [facility] [address] Holt [address] [place] [id number] -Pain: - IV pain meds post op day 1, with PO supplementation, goal is to progress weaning off IV medications and control pain with PO only. morphine 1mg q 4 hours (PAIN 7-10) - P.O. analgesics:Tylenol 650MG (PAIN 1-3) [place] 10/325 mg (PAIN 4-6) - Muscle relaxers scheduled administration. This is a beneficial medications for the incisional pain as it is mostly related to muscle spasms. Flexeril 10 mg TID - Cepacol throat lozenges as needed for sore throat -Antibiotics Operative recommendations: -Postoperative dose:-Post operative antibiotics cefazolin 1 g IV piggyback every 8 hours x 48 hours total of 6 doses -DVT PPX: -Hold all chemical DVT/ blood thinners for 14 days postoperatively -use mechanical DVT PPX such as SCD's, ambulation -Activity: -Pending PT evaluation and patients progression -Sit at side of bed for meals -Goal: Ambulate independently and safely (may use assistive devices if needed) -Medical Therapy goals: -Afebrile- Patient may develop a expected post operative fever by day 2-3, this may not be accompanied with a elevation in WBC. if fever develops: Acetaminophen for fever. Albuterol nebulizer Tx every 12 hours for 24 hours to facilitate adequate lung expansion and prevent development of atelectasis. -Euglycemic: bloods sugars under 130mmol/L for optimal healing -Normotensive: Avoid events of hypertension. This helps to keep post operative healing intact and avoids destabilization of beneficial hemostatic coagulation. -Lumbar: -If patient is comfortable encouraged the patient to lay on their side to facilitate wound healing -Dressings Take care not to disrupt the ORLIN dressing seal. If there is a break in the seal it can be trouble shot with a Tegaderm dressing. -Dressing to Hemovac drains may be changed once the drains have been removed by the provider. -Bowel management: -Colace 100mg bid -Diet: -Clear liquid diet and advance as patient tolerates within dietary limitations ( example: diabetic, Cardiac) -Incentive Spirometer: -10 x hour while awake, RN please educate and observe repeat demonstration, have IS at bedside POD #1 -X-rays: - none indicated at this time -Consults: -Physical Therapy evaluation, treatment recommendations, and discharge recommendations Call with questions Sergey Salazar ACNP- Orthopaedic Spine Surgery nurse practitioner For Dr Pito Berry Patient was examined, chart reviewed, labs evaluated, and diagnostic studies and findings analyzed. Case was discussed with Dr. Prabhu Berry who formulated the plan of care. This medical document was created using an electronic medical record system with [employer] dictation system. Although this document has been carefully reviewed, there might still be some phonetic and typographical errors. These areas are purely typographical due to imperfections of the software programs, and do not reflect any compromise in the patient's medical care. Plan discussed with Plan discussed with: Patient Visit Coding Surgery Date of Service if different f: Jan 03, 2025 Billing Provider: PRABHU BERRY MD Surgery Visit Codes: NOT BILLABLE DIANNE SALAZAR NP Jan 03, 2025 07:46
[2025-01-03] MEDS: POTASSIUM CHL 20 Meq TABLET PO ONE (09:26)
--- NOTE | 2025-01-03 11:13 | DVHPNRES ---
Progress Note Date Seen: Jan 03, 2025 Resident Creating Document: JACKIE HUGO RESIDENT Has the PT tested + for MRSA If YES, has PT been informed?: No Medical Necessity Reason Pt with a Central, PICC or Fol: No Subjective Review of Systems This is a 64-year-old female with past medical history of bronchial asthma, hypertension, GERD, sciatica, degenerative disc disease who presented to the ED with chief complaint of lower back pain radiating to bilateral lower extremities that was worse to the left side. On admission, the patient reported a severe lower back pain radiating to the left lower extremity which she reported that it was impacting her daily activities making difficult to straighten her leg and bearing weight while she tries to stand up. The patient underwent lumbar spine surgery on 12/30/2024 due to severe lumbar spine stenosis causing neurogenic claudication and progressive neurologic deficits. Laminectomy and six screws were placed through L3-L5. Patient is currently on recovery status post surgery. Patient seen and examined at bedside. Patient states that could not sleep at night because of itchiness caused by vancomycin. The patient states it does not want to have any other dose of vancomycin due to severe itchiness despite using IV Benadryl which could not improved the symptoms. We will discontinue IV vancomycin at this time and keep the patient on IV cefepime. Otherwise, patient is feeling well overall, working actively with physical therapy with no sensory or motor deficits at this time. Patient denies any other symptoms or complaints. ROS Constitutional: Denies weight loss, fever and chills. HEENT: Denies changes in vision and hearing. Respiratory: Denies shortness of breath and cough Cardiovascular: Denies chest discomfort or palpitations GI: Denies abdominal pain, nausea, vomiting and diarrhea. : Denies dysuria and urinary frequency. Musculoskeletal: Reports mild lower back pain which is expected after surgery. Denies myalgias and joint pain Skin: Reported prudent to send itchiness caused by vancomycin. Neurological: Denies dizziness, headache, vision or hearing problems Objective vital signs Vital Sign Date Time Temp Pulse Resp B/P (MAP) Pulse Ox O2 Delivery O2 Flow Rate FiO2 01/03/25 09:24 153/70 01/03/25 09:06 97 Room Air* 0 21 01/03/25 08:56 99.0 96 14 99.0 Total Intake and Output 4/03/2301/02/25 01/03/25 15:00 23:00 07:00 Intake Total 100 ml 50 ml 200 ml Output Total 64 ml 52 ml Balance 36 ml 50 ml 148 ml medications Current Medications Medications Dose Ordered Sig/Justin Route Start Time Stop Time Status Last Admin Dose Admin Pantoprazole Sodium 40 mg DAILY PO 12/29/24 10:00 01/03/25 09:24 40 MG Enoxaparin Sodium 40 mg DAILY SC 12/29/24 10:00 01/03/25 09:23 40 MG Gabapentin 300 mg HS PO 12/29/24 22:00 Al Hydrox/Mg Hydrox/Simethicone 30 ml Q8HP PRN PO 12/29/24 11:30 12/29/24 20:45 30 ML Ondansetron HCl 4 mg Q4HP PRN IV 12/30/24 08:00 12/30/24 14:33 4 MG Acetaminophen 650 mg Q6HP PRN PO 12/30/24 08:00 Acetaminophen/ Hydrocodone Bitart 2 tab Q6HP PRN PO 12/30/24 08:00 01/03/25 08:27 2 TAB Cefepime HCl 50 ml @ 12.5 mls/hr Q8HR IV 12/31/24 14:00 01/03/25 06:05 12.5 MLS/HR Cyclobenzaprine HCl 10 mg TIDP PRN PO 01/01/25 07:45 Docusate Sodium 100 mg BIDPRN PRN PO 01/01/25 07:45 Vancomycin HCl 0 ml @ 0 mls/hr UD IV 01/01/25 07:45 Loratadine 10 mg DAILY PO 01/01/25 10:00 01/02/25 09:57 10 MG Albuterol 2.5 mg Q8HPRN PRN NEB 01/01/25 15:15 Ipratropium [place] 0.5 mg Q8HPRN PRN NEB 01/01/25 15:15 Vancomycin HCl 150 ml @ 150 mls/hr Q12HR IV 01/02/25 22:00 01/02/25 22:07 150 MLS/HR Amlodipine Besylate 10 mg DAILY PO 01/02/25 20:00 01/03/25 09:24 10 MG Examination Physical Examination General: Patient alert and oriented in person, place and time. Patient following commands. HEENT: Normocephalic, atraumatic, moist mucous membranes Respiratory/pulmonary: Clear lungs bilaterally, vesicular murmurs present in almost all lung [place], no associated crackles or wheezes. Cardiovascular: Normal heart sounds S1 and S2 with no associated murmurs Abdomen: Abdomen nondistended, there is no pain to palpation in any of the abdominal quadrants, no palpable masses. Extremities: There is no peripheral edema present at the lower extremities. Peripheral Pulses: 3+ Radial (R). 3+ Radial (L). 3+ Dorsalis pedis (R). 3+ Dorsalis pedis(L) Skin: No rashes or pruritus, there is no sacral edema present at this time. Neurological: Intact cranial nerves with no focal neurologic deficits laboratory and microbiology Laboratory Tests 01/03/25 06:50 Test 01/03/25 06:50 Range/Units Serum Glucose 111 H 74-106 mg/dL Microbiology Date/Time Source Procedure Growth Status 01/02/25 10:00 Voided Urine Urine Culture - Preliminary Resulted 12/29/24 03:30 Nose MRSA Screen - Final Complete Problem List/Assessment/Plan Problem List/Assessment/Plan Assessment/Plan Severe lumbar spine stenosis with neurogenic claudication and progressive neurologic deficits including sciatica and lumbar radiculopathy Status post lumbar laminectomies with six screws placed through L3-L5 -patient had lumbar spine surgery on 12/30/[address] Berry -continue physical therapy -continue pain medication as needed, [place] and cyclobenzaprine -patient has been able to walk with physical therapy -social media content manager is on board and approved four weeks of physical therapy and wound care at home. -continue DVT prophylaxis with enoxaparin -Discontinue vancomycin due to itchy reaction -Continue Cefepime IV Ruled out DVT -lower extremity venous Doppler showed no evidence of neither right or left lower extremity DVT -continue DVT prophylaxis after surgery Acute complicated cystitis -initial urine culture showed more than three colonies growth which could be due to contamination or true infection -we will repeat urine culture, pending -meanwhile patient will be covered with vancomycin and cefepime Mild itchy reaction to vancomycin -Discontinue vancomycin and continue Cefepime GERD -pantoprazole 40 mg po daily Asthma, well controlled -monitor Primary hypertension -Continue amlodipine 10 mg daily -monitor blood pressure closely DVT prophylaxis, with the enoxaparin Goals of care discussed with the patient at bedside and for > 25min, FULL CODE Plan discussed with Dr. Lovett Plan discussed with: Patient My Orders My Orders Orders - JACKIE HUGO Procedure Category Date Status Time Amlodipine Tablet PHA 01/02/25 In Process (Norvasc Tablet) 20:00 Dietary Evaluation Review Comments: 1. Agree with Vegetrian diet per pt preference 2. Monitor PO intake post-op, will assess need for ONS on FU pending PO 3. Good pain management, especially prior to pt attmepting meals Expected Outcomes/Goals: Adequate oral intakes, post-op healing, enhanced recover after surgery. Date of Service: Jan 03, 2025 Billing Provider: SAJI LOVETT MD Common Visit Codes: [id number] INP/OBS CARE(HIGH) JACKIE HUGO RESIDENT Jan 03, 2025 11:13 SAJI LOVETT MD Jan 03, 2025 22:34
[2025-01-03] MEDS: CYCLOBENZAPRINE HCL 10 MG TAB PO PRN (14:35)
[2025-01-04] VITALS (13 sets, daily range): BP systolic 127–154; BP diastolic 57–75; PULSE 85–105; RESP 16–19; TEMP 97.6–98.7; O2SAT 92–97
[2025-01-04] MEDS ORDERED: THROAT LOZENGES(CEPASTAT) MT PRN (03:15)
[2025-01-04] MEDS: IPRATROPIUM BROM 0.5 MG/2.5ML INH SOL NEB PRN (04:47)
[2025-01-04 07:42] LABS: Basophils # (auto) 0.1 10 ^3/uL (0-0.2); Basophils % (auto) 0.6 % (0.0-2.0); Eosinophils # (auto) 0.5 10 ^3/uL (0-0.8); Eosinophils % (auto) 4.3 % (0.0-7.0); Hematocrit 28.9 % (36.0-46.0); Hemoglobin 9.8 g/dL (12.2-16.2); Lymphocytes # (auto) 1.9 10 ^3/uL (0.4-5.4); Lymphocytes % (auto) 15.3 % (10.0-50.0); Mean Corpuscular Hemoglobin 26.3 pg (28.0-32.0); Mean Corpuscular Hgb Conc. 33.8 g/dL (32.0-36.0); Mean Corpuscular Volume 77.7 fL (80.0-100.0); Monocytes # (auto) 0.9 10 ^3/uL (0-1.3); Monocytes % (auto) 7.1 % (0.0-12.0); Neutrophils # (auto) 9.1 10 ^3/uL (1.6-8.6); Neutrophils % (auto) 72.7 % (37.0-80.0); Nucleated Red Blood Cells % 0.1 %; Platelet Count (auto) 611 10^3/uL (140-450); Red Blood Cells 3.72 10^6/uL (4.0-5.20); Red Cell Distribution Width 15.2 % (11.8-14.3); White Blood Cell 12.5 10^3/uL (4.4-10.8)
--- NOTE | 2025-01-04 07:45 | DVHPNRES ---
Progress Note Date Seen: Jan 04, 2025 Resident Creating Document: JACKIE HUGO RESIDENT Has the PT tested + for MRSA If YES, has PT been informed?: No Medical Necessity Reason Pt with a Central, PICC or Fol: No Subjective Review of Systems This is a 64-year-old female with past medical history of bronchial asthma, hypertension, GERD, sciatica, degenerative disc disease who presented to the ED with chief complaint of lower back pain radiating to bilateral lower extremities that was worse to the left side. On admission, the patient reported a severe lower back pain radiating to the left lower extremity which she reported that it was impacting her daily activities making difficult to straighten her leg and bearing weight while she tries to stand up. The patient underwent lumbar spine surgery on 12/30/2024 due to severe lumbar spine stenosis causing neurogenic claudication and progressive neurologic deficits. Laminectomy and six screws were placed through L3-L5. Patient is currently on recovery status post surgery. Patient seen and examined at bedside. Patient states that he is feeling well overall but still having mild back pain and lower extremity pain while walking with physical therapy. The patient stated that she walked yesterday with PT multiple times and has been moving around the [facility] more often. We discontinued vancomycin due to severe itchy reaction and continued cefepime at this time. Will continue providing pain modulation and PT x4 daily. ROS Constitutional: Denies weight loss, fever and chills. HEENT: Denies changes in vision and hearing. Respiratory: Denies shortness of breath and cough Cardiovascular: Denies chest discomfort or palpitations GI: Denies abdominal pain, nausea, vomiting and diarrhea. : Denies dysuria and urinary frequency. Musculoskeletal: Reports lower back pain and lower ext pain while ambulating. Denies myalgias and joint pain Skin: Denies rash and pruritus. Neurological: Denies dizziness, headache, vision or hearing problems Objective vital signs Vital Sign Date Time Temp Pulse Resp B/P (MAP) Pulse Ox O2 Delivery O2 Flow Rate FiO2 01/04/25 05:00 97.9 92 17 127/61 (83) 95 97.9 01/04/25 04:48 Nasal Cannula 2.0 01/04/25 04:48 21 Total Intake and Output 01/03/25 01/03/25 01/04/25 15:00 23:00 07:00 Intake Total 50 ml 50 ml 750 ml Output Total 22 ml Balance 28 ml 50 ml 750 ml medications Current Medications Medications Dose Ordered Sig/Justin Route Start Time Stop Time Status Last Admin Dose Admin Pantoprazole Sodium 40 mg DAILY PO 12/29/24 10:00 01/03/25 09:24 40 MG Enoxaparin Sodium 40 mg DAILY SC 12/29/24 10:00 01/03/25 09:23 40 MG Gabapentin 300 mg HS PO 12/29/24 22:00 Al Hydrox/Mg Hydrox/Simethicone 30 ml Q8HP PRN PO 12/29/24 11:30 12/29/24 20:45 30 ML Ondansetron HCl 4 mg Q4HP PRN IV 12/30/24 08:00 12/30/24 14:33 4 MG Acetaminophen/ Hydrocodone Bitart 2 tab Q6HP PRN PO 12/30/24 08:00 01/03/25 21:39 2 TAB Cefepime HCl 50 ml @ 12.5 mls/hr Q8HR IV 12/31/24 14:00 01/04/25 05:39 12.5 MLS/HR Cyclobenzaprine HCl 10 mg TIDP PRN PO 01/01/25 07:45 01/03/25 14:35 10 MG Docusate Sodium 100 mg BIDPRN PRN PO 01/01/25 07:45 Loratadine 10 mg DAILY PO 01/01/25 10:00 01/02/25 09:57 10 MG Ipratropium [place] 0.5 mg Q8HPRN PRN NEB 01/01/25 15:15 01/04/25 04:47 0.5 MG Amlodipine Besylate 10 mg DAILY PO 01/02/25 20:00 01/03/25 09:24 10 MG Throat Lozenges 1 joo Q2HP PRN MT 01/04/25 03:15 Examination Physical Examination General: Patient alert and oriented in person, place and time. Patient following commands. HEENT: Normocephalic, atraumatic, moist mucous membranes Respiratory/pulmonary: Clear lungs bilaterally, vesicular murmurs present in almost all lung [place], no associated crackles or wheezes. Cardiovascular: Normal heart sounds S1 and S2 with no associated murmurs Abdomen: Abdomen nondistended, there is no pain to palpation in any of the abdominal quadrants, no palpable masses. Extremities: There is no peripheral edema present at the lower extremities. Peripheral Pulses: 3+ Radial (R). 3+ Radial (L). 3+ Dorsalis pedis (R). 3+ Dorsalis pedis(L) Skin: No rashes or pruritus, there is no sacral edema present at this time. Neurological: Intact cranial nerves with no focal neurologic deficits laboratory and microbiology Test 01/04/25 05:41 Range/Units Serum Glucose Pending Microbiology Date/Time Source Procedure Growth Status 01/02/25 10:00 Voided Urine Urine Culture - Preliminary Resulted 12/29/24 03:30 Nose MRSA Screen - Final Complete Problem List/Assessment/Plan Problem List/Assessment/Plan Assessment/Plan Severe lumbar spine stenosis with neurogenic claudication and progressive neurologic deficits including sciatica and lumbar radiculopathy Status post lumbar laminectomies with six screws placed through L3-L5 -patient had lumbar spine surgery on 12/30/[address] Berry -continue physical therapy -continue pain medication as needed, [place] and cyclobenzaprine -patient has been able to walk with physical therapy -social research assistant is on board and approved four weeks of physical therapy and wou nd care at home. -continue DVT prophylaxis with enoxaparin -Discontinue vancomycin due to itchy reaction -Continue Cefepime IV -PT x4 daily Ruled out DVT -lower extremity venous Doppler showed no evidence of neither right or left lower extremity DVT -continue DVT prophylaxis after surgery Acute complicated cystitis -initial urine culture showed more than three colonies growth which could be due to contamination or true infection -we will repeat urine culture, pending -meanwhile patient will be covered with vancomycin and cefepime Mild itchy reaction to vancomycin -Discontinue vancomycin and continue Cefepime GERD -pantoprazole 40 mg po daily Asthma, well controlled -monitor Primary hypertension -Continue amlodipine 10 mg daily -monitor blood pressure closely DVT prophylaxis, with the enoxaparin Goals of care discussed with the patient at bedside and for > 25min, FULL CODE Plan discussed with Dr. Lovett Plan discussed with: Patient My Orders My Orders Orders - JACKIE HUGO RESIDENT Procedure Category Date Status Time Discontinue Tele TARIK 01/03/25 In Process 14:06 Complete Blood Count LAB 01/04/25 In Process 04:00 Basic Metabolic Panel LAB 01/04/25 In Process 04:00 Dietary Evaluation Review Comments: 1. Agree with Vegetrian diet per pt preference 2. Monitor PO intake post-op, will assess need for ONS on FU pending PO 3. Good pain management, especially prior to pt attmepting meals Expected Outcomes/Goals: Adequate oral intakes, post-op healing, enhanced recover after surgery. Date of Service: Jan 04, 2025 Billing Provider: SAJI LOVETT MD Common Visit Codes: [id number] INP/OBS CARE(HIGH) JACKIE HUGO RESIDENT Jan 04, 2025 07:45 SAJI LOVETT MD Jan 08, 2025 08:24
[2025-01-04 07:52] LABS: Anion Gap 10 (5-15); Calcium 9.2 mg/dL (8.7-10.4); Carbon Dioxide 27 mmol/L (20-31); Chloride 103 mmol/L (98-107); Sodium 140 mmol/L (136-145)
[2025-01-04 07:55] LABS: Potassium 3.4 mmol/L (3.5-5.1)
[2025-01-04 07:59] LABS: Blood Urea Nitrogen 9 mg/dL (9-23)
[2025-01-04 08:01] LABS: Glucose 117 mg/dL (74-106)
--- NOTE | 2025-01-04 11:17 | DVHPN2 ---
Progress Note Date Seen: Jan 04, 2025 Has the PT tested + for MRSA If YES, has PT been informed?: No Medical Necessity Reason Pt with a Central, PICC or Fol: No Subjective Patient reports: No new complaints Review of Systems: HEENT:Normal, CVS:Normal, RESPIRATORY:Normal, GI:Normal, :Normal, MSK:Normal, NEURO:Normal Objective vital signs Vital Sign Date Time Temp Pulse Resp B/P (MAP) Pulse Ox O2 Delivery O2 Flow Rate FiO2 01/04/25 09:00 98.4 97 18 147/74 (98) 95 98.4 01/04/25 08:45 0.0 01/04/25 07:30 Room Air* 21 Total Intake and Output 01/03/25 01/03/25 01/04/25 15:00 23:00 07:00 Intake Total 50 ml 50 ml 750 ml Output Total 22 ml Balance 28 ml 50 ml 750 ml medications Current Medications Medications Dose Ordered Sig/Justin Route Start Time Stop Time Status Last Admin Dose Admin Pantoprazole Sodium 40 mg DAILY PO 12/29/24 10:00 01/04/25 08:53 40 MG Enoxaparin Sodium 40 mg DAILY SC 12/29/24 10:00 01/04/25 08:54 40 MG Gabapentin 300 mg HS PO 12/29/24 22:00 Al Hydrox/Mg Hydrox/Simethicone 30 ml Q8HP PRN PO 12/29/24 11:30 12/29/24 20:45 30 ML Ondansetron HCl 4 mg Q4HP PRN IV 12/30/24 08:00 01/04/25 09:03 4 MG Acetaminophen/ Hydrocodone Bitart 2 tab Q6HP PRN PO 12/30/24 08:00 01/04/25 08:53 2 TAB Cefepime HCl 50 ml @ 12.5 mls/hr Q8HR IV 12/31/24 14:00 01/04/25 05:39 12.5 MLS/HR Cyclobenzaprine HCl 10 mg TIDP PRN PO 01/01/25 07:45 01/03/25 14:35 10 MG Docusate Sodium 100 mg BIDPRN PRN PO 01/01/25 07:45 Loratadine 10 mg DAILY PO 01/01/25 10:00 01/04/25 08:53 10 MG Ipratropium [place] 0.5 mg Q8HPRN PRN NEB 01/01/25 15:15 01/04/25 04:47 0.5 MG Amlodipine Besylate 10 mg DAILY PO 01/02/25 20:00 01/04/25 08:53 10 MG Throat Lozenges 1 joo Q2HP PRN MT 01/04/25 03:15 Examination: GENERAL:Normal, HEENT:Normal, NECK:Normal, LUNGS:Normal, CVS:Normal, ABDOMEN:Normal, MSK:Normal, MSK:Abnormal (lumber dressing), SKIN:Normal, NEURO:Normal, :Normal laboratory and microbiology Laboratory Tests 01/04/25 05:41 Test 01/04/25 05:41 Range/Units Serum Glucose 117 H 74-106 mg/dL Microbiology Date/Time Source Procedure Growth Status 01/02/25 10:00 Voided Urine Urine Culture - Preliminary Resulted 12/29/24 03:30 Nose MRSA Screen - Final Complete Problem List/Assessment/Plan Problem List/Assessment/Plan #1 djd spine s/p surgery: pt, pain meds #2 uti: await id, iv cefepime #3 htn: cont meds #4 obesity advance care planning- full code- time spent 19 mins Plan discussed with: Patient, Spouse Dietary Evaluation Review Comments: 1. Agree with Vegetrian diet per pt preference 2. Monitor PO intake post-op, will assess need for ONS on FU pending PO 3. Good pain management, especially prior to pt attmepting meals Expected Outcomes/Goals: Adequate oral intakes, post-op healing, enhanced recover after surgery. Date of Service: Jan 04, 2025 Billing Provider: LUCIANO RODRÍGUEZ MD Common Visit Codes: [id number] INP/OBS CARE(HIGH) Secondary Visit Codes: [id number] CARE PLAN 30 MINUTES LUCIANO RODRÍGUEZ MD Jan 04, 2025 11:17
[2025-01-04] MEDS: POTASSIUM CHL 20 Meq TABLET PO ONE (12:24)
[2025-01-04] MEDS: Ensure HIGH Protein Chocolate 8oz Bottle PO SCH (18:00)
[2025-01-05] VITALS (12 sets, daily range): BP systolic 117–139; BP diastolic 60–73; PULSE 89–100; RESP 16–21; TEMP 97.8–99.2; O2SAT 93–100
[2025-01-05 06:25] LABS: Basophils # (auto) 0.1 10 ^3/uL (0-0.2); Basophils % (auto) 0.4 % (0.0-2.0); Eosinophils # (auto) 0.6 10 ^3/uL (0-0.8); Eosinophils % (auto) 4.7 % (0.0-7.0); Hematocrit 28.7 % (36.0-46.0); Hemoglobin 9.5 g/dL (12.2-16.2); Lymphocytes # (auto) 2.1 10 ^3/uL (0.4-5.4); Mean Corpuscular Hemoglobin 25.8 pg (28.0-32.0); Mean Corpuscular Hgb Conc. 33.1 g/dL (32.0-36.0); Mean Corpuscular Volume 77.9 fL (80.0-100.0); Monocytes # (auto) 0.9 10 ^3/uL (0-1.3); Monocytes % (auto) 7.6 % (0.0-12.0); Neutrophils # (auto) 8.6 10 ^3/uL (1.6-8.6); Neutrophils % (auto) 70.3 % (37.0-80.0); Nucleated Red Blood Cells % 0.1 %; Platelet Count (auto) 582 10^3/uL (140-450); Red Blood Cells 3.68 10^6/uL (4.0-5.20); Red Cell Distribution Width 15.3 % (11.8-14.3); White Blood Cell 12.2 10^3/uL (4.4-10.8)
[2025-01-05 06:27] LABS: Anion Gap 8 (5-15); Carbon Dioxide 28 mmol/L (20-31); Chloride 102 mmol/L (98-107); Potassium 3.6 mmol/L (3.5-5.1); Sodium 138 mmol/L (136-145)
[2025-01-05 06:29] LABS: Calcium 9.1 mg/dL (8.7-10.4)
[2025-01-05 06:33] LABS: Glucose 100 mg/dL (74-106)
[2025-01-05 06:34] LABS: Magnesium 2.1 mg/dL (1.6-2.6)
[2025-01-05 06:39] LABS: Blood Urea Nitrogen 8 mg/dL (9-23)
--- NOTE | 2025-01-05 10:39 | DVHPN2 ---
Progress Note Date Seen: Jan 05, 2025 Has the PT tested + for MRSA If YES, has PT been informed?: No Medical Necessity Reason Pt with a Central, PICC or Fol: No Subjective Patient reports: No new complaints Review of Systems: HEENT:Normal, CVS:Normal, RESPIRATORY:Normal, GI:Normal, :Normal, MSK:Normal, NEURO:Normal Objective vital signs Vital Sign Date Time Temp Pulse Resp B/P (MAP) Pulse Ox O2 Delivery O2 Flow Rate FiO2 01/05/25 10:00 93 Room Air 0.0 01/05/25 09:38 139/73 01/05/25 08:30 99.2 100 16 99.2 01/05/25 07:30 21 Total Intake and Output 01/04/25 01/04/25 01/05/25 15:00 23:00 07:00 Intake Total 1750 ml 1000 ml Balance 1750 ml 1000 ml medications Current Medications Medications Dose Ordered Sig/Justin Route Start Time Stop Time Status Last Admin Dose Admin Pantoprazole Sodium 40 mg DAILY PO 12/29/24 10:00 01/05/25 09:38 40 MG Enoxaparin Sodium 40 mg DAILY SC 12/29/24 10:00 01/05/25 09:39 40 MG Gabapentin 300 mg HS PO 12/29/24 22:00 Al Hydrox/Mg Hydrox/Simethicone 30 ml Q8HP PRN PO 12/29/24 11:30 12/29/24 20:45 30 ML Ondansetron HCl 4 mg Q4HP PRN IV 12/30/24 08:00 01/04/25 09:03 4 MG Acetaminophen/ Hydrocodone Bitart 2 tab Q6HP PRN PO 12/30/24 08:00 01/05/25 09:44 2 TAB Cyclobenzaprine HCl 10 mg TIDP PRN PO 01/01/25 07:45 01/04/25 12:24 10 MG Docusate Sodium 100 mg BIDPRN PRN PO 01/01/25 07:45 Loratadine 10 mg DAILY PO 01/01/25 10:00 01/05/25 09:38 10 MG Ipratropium [place] 0.5 mg Q8HPRN PRN NEB 01/01/25 15:15 01/04/25 04:47 0.5 MG Amlodipine Besylate 10 mg DAILY PO 01/02/25 20:00 4/9/25 09:38 10 MG Throat Lozenges 1 joo Q2HP PRN MT 01/04/25 03:15 Enteral Nutritional Formula 240 ml BIDWM PO 01/04/25 18:00 01/05/25 08:00 240 ML Fluconazole 100 ml @ 100 mls/hr DAILY IV 01/06/25 10:00 Iron Sucrose 110 ml @ 110 mls/hr DAILY@1200 IV 01/05/25 12:00 01/09/25 12:59 Examination: GENERAL:Normal, HEENT:Normal, NECK:Normal, LUNGS:Normal, CVS:Normal, ABDOMEN:Normal, MSK:Normal, MSK:Abnormal (lumber dressing), SKIN:Normal, NEURO:Normal, :Normal laboratory and microbiology Laboratory Tests 01/05/25 05:38 Test 01/05/25 05:38 Range/Units Serum Glucose 100 74-106 mg/dL Microbiology Date/Time Source Procedure Growth Status 01/02/25 10:00 Voided Urine Urine Culture - Preliminary Resulted 12/29/24 03:30 Nose MRSA Screen - Final Complete Problem List/Assessment/Plan Problem List/Assessment/Plan #1 djd spine s/p surgery: pt, pain meds #2 uti: fluconazole #3 htn: cont meds #4 obesity advance care planning- full code- time spent 19 mins Plan discussed with: Patient My Orders My Orders Orders - LUCIANO RODRÍGUEZ MD Procedure Category Date Status Time * Wound Consult CONS 01/04/25 Transmitted Nutritional PHA 01/04/25 In Process Supplements (Ensure 18:00 Fluconazole PHA 01/06/25 Logged 200mg/100ml (Diflucan 10:00 Fluconazole PHA 01/05/25 Logged 200mg/100ml (Diflucan 10:30 Iron Sucrose Complex PHA 01/05/25 Logged (Venofer) 12:00 Complete Blood Count LAB 01/06/25 Verified 06:00 Dietary Evaluation Review Comments: 1. Agree with Vegetrian diet per pt preference 2. Monitor PO intake post-op, will assess need for ONS on FU pending PO 3. Good pain management, especially prior to pt attmepting meals Expected Outcomes/Goals: Adequate oral intakes, post-op healing, enhanced recover after surgery. Date of Service: Jan 05, 2025 Billing Provider: LUCIANO RODRÍGUEZ MD Common Visit Codes: [id number] INP/OBS CARE(HIGH) LUCIANO RODRÍGUEZ MD Jan 05, 2025 10:39
--- NOTE | 2025-01-05 11:11 | PRN ---
Misceleneous Note Note Note Patient see personally by DR Preston on 01/04/2025. She has verbalized to DR Berry that she feels improvement in her preoperative symptoms. Her drains were removed on 01/03/[address] Berry, patient tolerated removal well. Per DR Berry patient is clear to discharge from a spin perspective. She has a follow up appointment with the office already. Post operative medications sent to patient pharmacy on record. Continue supportive care, postoperative treatment, pain management Patient will be discharged with heidi dressing in place, this will be removed at postop follow-up appointment which should be scheduled by postoperative day 10 Your heidi dressing may be carried in your pocket or belt clip what ever is most comfortable for you. Your heidi pump contains a small magnet be sure to keep it at least 4 inches or 10 cm away from any other medical devices at all times. As with all electrical medical equipment, failure to maintain appropriate distance may disrupt the operation of nearby medical devices. Sleeping, be sure your heidi drain is placed somewhere safe and cannot be pulled off of the table or a cabinet onto the floor during sleeping. Washing and showering, do not soak the dressing or allow the pump to get wet. You may shower with your heidi dressing. However do not allow the water to saturate the dressing. The power source must be placed in a Ziploc bag and the opening taped closed to prevent the power source from getting wet No bending lifting or twisting until cleared by your surgeon. Follow-up with Dr. Preston ideally by postoperative day 10, limited by clinic schedule Keep your assigned appointment [phone] [id number] [phone] Call with questions Sergey Valdez [facility] Orthopaedic Spine Surgery nurse practitioner For Dr Pito Berry Patient was examined, chart reviewed, labs evaluated, and diagnostic studies and findings analyzed. Case was discussed with Dr. Prabhu Berry who formulated the plan of care. This medical document was created using an electronic medical record system with [employer] dictation system. Although this document has been carefully reviewed, there might still be some phonetic and typographical errors. These areas are purely typographical due to imperfections of the software programs, and do not reflect any compromise in the patient's medical care. DIANNE VALDEZ NP Jan 05, 2025 11:11
[2025-01-05] MEDS ORDERED: CYCL-611 PO (11:14)
[2025-01-05] MEDS: FLUCONAZOLE 200MG/100ML 100 ML IV ONE (11:14)
[2025-01-05] MEDS ORDERED: DOCU-265 PO (11:14)
[2025-01-05] MEDS ORDERED: HYDR-4798 PO (11:14)
[2025-01-05] MEDS: IRON SUCROSE COMPLEX 110 ML IV SCH (13:03)
[2025-01-06] VITALS (10 sets, daily range): BP systolic 114–141; BP diastolic 58–73; PULSE 69–94; RESP 17–20; TEMP 97.5–98.6; O2SAT 92–98
[2025-01-06 05:49] LABS: Basophils # (auto) 0.1 10 ^3/uL (0-0.2); Basophils % (auto) 0.6 % (0.0-2.0); Eosinophils # (auto) 0.5 10 ^3/uL (0-0.8); Eosinophils % (auto) 4.3 % (0.0-7.0); Hematocrit 29.3 % (36.0-46.0); Hemoglobin 9.7 g/dL (12.2-16.2); Lymphocytes # (auto) 2.2 10 ^3/uL (0.4-5.4); Lymphocytes % (auto) 18.8 % (10.0-50.0); Mean Corpuscular Hemoglobin 26.1 pg (28.0-32.0); Mean Corpuscular Hgb Conc. 33.3 g/dL (32.0-36.0); Mean Corpuscular Volume 78.3 fL (80.0-100.0); Monocytes % (auto) 8.7 % (0.0-12.0); Neutrophils # (auto) 7.8 10 ^3/uL (1.6-8.6); Neutrophils % (auto) 67.6 % (37.0-80.0); Nucleated Red Blood Cells % 0.1 %; Platelet Count (auto) 558 10^3/uL (140-450); Red Blood Cells 3.74 10^6/uL (4.0-5.20); Red Cell Distribution Width 15.3 % (11.8-14.3); White Blood Cell 11.5 10^3/uL (4.4-10.8)
[2025-01-06] MEDS ORDERED: FLUCONAZOLE 200MG/100ML 100 ML IV SCH (10:00)
--- NOTE | 2025-01-06 10:46 | DVHPN2 ---
Progress Note Date Seen: Jan 06, 2025 Has the PT tested + for MRSA If YES, has PT been informed?: No Medical Necessity Reason Pt with a Central, PICC or Fol: No Subjective Patient reports: No new complaints Review of Systems: HEENT:Normal, CVS:Normal, RESPIRATORY:Normal, GI:Normal, :Normal, MSK:Normal, NEURO:Normal Objective vital signs Vital Sign Date Time Temp Pulse Resp B/P (MAP) Pulse Ox O2 Delivery O2 Flow Rate FiO2 01/06/25 08:46 98.5 94 17 139/66 (90) 94 98.5 01/05/25 20:26 Room Air* 0 21 21 Total Intake and Output 01/05/25 01/05/25 01/06/25 15:00 23:00 07:00 Intake Total 860 ml 350 ml Balance 860 ml 350 ml medications Current Medications Medications Dose Ordered Sig/Justin Route Start Time Stop Time Status Last Admin Dose Admin Pantoprazole Sodium 40 mg DAILY PO 12/29/24 10:00 01/05/25 09:38 40 MG Enoxaparin Sodium 40 mg DAILY SC 12/29/24 10:00 01/05/25 09:39 40 MG Gabapentin 300 mg HS PO 12/29/24 22:00 Al Hydrox/Mg Hydrox/Simethicone 30 ml Q8HP PRN PO 12/29/24 11:30 12/29/24 20:45 30 ML Ondansetron HCl 4 mg Q4HP PRN IV 12/30/24 08:00 01/05/25 15:29 4 MG Acetaminophen/ Hydrocodone Bitart 2 tab Q6HP PRN PO 12/30/24 08:00 01/06/25 09:21 2 TAB Cyclobenzaprine HCl 10 mg TIDP PRN PO 01/01/25 07:45 01/04/25 12:24 10 MG Docusate Sodium 100 mg BIDPRN PRN PO 01/01/25 07:45 Loratadine 10 mg DAILY PO 01/01/25 10:00 01/05/25 09:38 10 MG Ipratropium [place] 0.5 mg Q8HPRN PRN NEB 01/01/25 15:15 01/04/25 04:47 0.5 MG Amlodipine Besylate 10 mg DAILY PO 01/02/25 20:00 01/05/25 09:38 10 MG Throat Lozenges 1 joo Q2HP PRN MT 01/04/25 03:15 Enteral Nutritional Formula 240 ml BIDWM PO 01/04/25 18:00 01/06/25 08:00 240 ML Fluconazole 100 ml @ 100 mls/hr DAILY IV 01/06/25 10:00 Iron Sucrose 110 ml @ 110 mls/hr DAILY@1200 IV 01/05/25 12:00 01/09/25 12:59 01/05/25 13:03 110 MLS/HR Examination: GENERAL:Normal, HEENT:Normal, NECK:Normal, LUNGS:Normal, CVS:Normal, ABDOMEN:Normal, MSK:Normal, MSK:Abnormal (LUMBER DRESSING), SKIN:Normal, NEURO:Normal, :Normal laboratory and microbiology Laboratory Tests 01/06/25 05:22 01/05/25 05:38 Test 01/05/25 05:38 Range/Units Serum Glucose 100 74-106 mg/dL Microbiology Date/Time Source Procedure Growth Status 01/02/25 10:00 Voided Urine Urine Culture - Preliminary Resulted 12/29/24 03:30 Nose MRSA Screen - Final Complete Problem List/Assessment/Plan Problem List/Assessment/Plan #1 djd spine s/p surgery: pt, pain meds #2 uti: fluconazole #3 htn: cont meds #4 obesity advance care planning- full code- time spent 19 mins Plan discussed with: Patient My Orders My Orders Orders - LUCIANO RODRÍGUEZ MD Procedure Category Date Status Time Fluconazole Tablet PHA 01/07/25 Verified (Diflucan Tablet) 10:00 Dietary Evaluation Review Comments: 1. Agree with Vegetrian diet per pt preference 2. Monitor PO intake post-op, will assess need for ONS on FU pending PO 3. Good pain management, especially prior to pt attmepting meals Expected Outcomes/Goals: Adequate oral intakes, post-op healing, enhanced recover after surgery. Date of Service: Jan 06, 2025 Billing Provider: LUCIANO RODRÍGUEZ MD Common Visit Codes: [id number] INP/OBS CARE(HIGH) LUCIANO RODRÍGUEZ MD Jan 06, 2025 10:46
[2025-01-06] MEDS: diphenhdrAMINE HCL 25 MG CAP PO PRN (12:33)
[2025-01-07] VITALS (8 sets, daily range): BP systolic 119–140; BP diastolic 58–67; PULSE 85–100; RESP 16–20; TEMP 98–98.7; O2SAT 91–100
[2025-01-07] MEDS: FLUCONAZOLE 100 MG TAB PO SCH (09:11)
--- NOTE | 2025-01-07 13:24 | DVHPN2 ---
Reviewed: Care Plan, H&P, Labs, Medications, Previous Orders, Radiology Changes from previous H/P or p: No Changes Eyes: No Pain, No Vision change, No Conjunctivae inflammation, No Eyelid inflammation, No Other, No Redness ENT: No Ear pain, No Ear discharge, No Nose pain, No Nose discharge, No Nose congestion, No Mouth pain, No Mouth swelling, No Throat pain, No Throat swelling, No Other Cardiovascular: No Chest Pain, No Palpitations, No Orthopnea, No Paroxysmal Noc. Dyspnea, No Edema, No Lt Headedness, No Other Respiratory: No Cough, No Dry, No Shortness of breath, No SOB with excertion, No Wheezing, No Hemoptysis, No Pleuritic Pain, No Sputum, No Other Gastrointestinal: No Nausea, No Vomiting, No Abdominal Pain, No Diarrhea, No Constipation, No Melena, No Hematochezia, No Other Genitourinary: Dysuria, Frequency; No Incontinence, No Hematuria, No Retention, No Other Musculoskeletal: No other, No neck pain, No shoulder pain, No arm pain, No back pain, No hand pain; leg pain, foot pain Skin: No Rash, No Lesions, No Jaundice, No Bruising, No Other Objective Vitals Vital Signs Date Time Temp Pulse Resp B/P (MAP) Pulse Ox O2 Delivery O2 Flow Rate FiO2 01/07/25 10:00 100 Room Air 0.0 01/07/25 09:11 140/65 01/07/25 09:00 98.4 99 16 98.4 01/07/25 08:00 21 Intake/Output Intake and Output 01/07/25 07:00 Intake Total 1200 ml Balance 1200 ml Intake Oral 1200 ml # Voids 4 Medications Current Medications Medications Dose Ordered Sig/Justin Route Start Time Stop Time Status Last Admin Dose Admin Pantoprazole Sodium 40 mg DAILY PO 12/29/24 10:00 01/07/25 09:11 40 MG Enoxaparin Sodium 40 mg DAILY SC 12/29/24 10:00 01/07/25 11:48 40 MG Gabapentin 300 mg HS PO 12/29/24 22:00 Al Hydrox/Mg Hydrox/Simethicone 30 ml Q8HP PRN PO 12/29/24 11:30 12/29/24 20:45 30 ML Ondansetron HCl 4 mg Q4HP PRN IV 12/30/24 08:00 01/05/25 15:29 4 MG Acetaminophen/ Hydrocodone Bitart 2 tab Q6HP PRN PO 12/30/24 08:00 01/07/25 09:12 2 TAB Cyclobenzaprine HCl 10 mg TIDP PRN PO 01/01/25 07:45 01/04/25 12:24 10 MG Docusate Sodium 100 mg BIDPRN PRN PO 01/01/25 07:45 Loratadine 10 mg DAILY PO 01/01/25 10:00 01/07/25 11:48 10 MG Amlodipine Besylate 10 mg DAILY PO 01/02/25 20:00 01/07/25 09:11 10 MG Throat Lozenges 1 joo Q2HP PRN MT 01/04/25 03:15 Enteral Nutritional Formula 240 ml BIDWM PO 01/04/25 18:00 01/07/25 08:00 240 ML Iron Sucrose 110 ml @ 110 mls/hr DAILY@1200 IV 01/05/25 12:00 01/09/25 12:59 01/07/25 11:48 110 MLS/HR Fluconazole 200 mg DAILY PO 01/07/25 10:00 01/07/25 09:11 200 MG Diphenhydramine HCl 25 mg Q6HP PRN PO 01/06/25 11:30 01/06/25 21:54 25 MG Laboratory Results Laboratory Tests 01/05/25 05:38 01/06/25 05:22 Urinalysis Test 12/28/24 12:32 01/02/25 10:00 Urine WBC Clumps Present /hpf (None Seen) Urine Color Light-yellow (Yellow) Urine Clarity Turbid (Clear) H Urine pH 5.5 (5.0-9.0) Urine Specific [place] 1.012 (1.001-1.035) Urine Protein Negative (Negative) Urine Ketones 1+ (Negative) H Urine Blood Negative /uL (Negative) Urine Nitrite Negative (Negative) Urine Bilirubin Negative (Negative) Urine Urobilinogen Normal mg/dL (Negative) Urine Leukocyte Esterase 1+ /uL (Negative) Urine RBC 8 /hpf (0 - 4) Urine Microscopic WBC 39 /HPF (0-5) H Urine Squamous Epithelial Cells Few /hpf (<5) Urine Bacteria None seen /hpf (None Seen) Urine Mucus Few (None Seen) Urine Yeast (Budding) Occasional /hpf (None Urine Glucose Normal mg/dL (Normal) Microbiology Microbiology Date/Time Source Procedure Growth Status 01/02/25 10:00 Voided Urine Urine Culture - Final Presumptive Wendi albicans Complete 12/29/24 03:30 Nose MRSA Screen - Final Complete Labs and/or images reviewed: Labs reviewed by me, Image(s) reviewed by me Assessment/Plan Assessment/Plan #1 djd spine s/p surgery on 12-30-24: pain meds #2 uti: fluconazole #3 htn: cont meds #4 obesity # 5 Postop anemia expected complication, patient getting iron infusion, hemoglobin 9.1 Plan discussed with: Patient Date of Service: Jan 07, 2025 Billing Provider: SUPRIYA CINTRON MD Common Visit Codes: [id number] INP/OBS CARE(HIGH) SUPRIYA CINTRON MD Jan 07, 2025 13:24
[2025-01-08] VITALS (8 sets, daily range): BP systolic 97–158; BP diastolic 57–74; PULSE 88–104; RESP 16–20; TEMP 97.8–99.5; O2SAT 94–99
--- NOTE | 2025-01-08 09:04 | DVHPN2 ---
Reviewed: Care Plan, H&P, Labs, Medications, Previous Orders, Radiology Changes from previous H/P or p: No Changes Eyes: No Pain, No Vision change, No Conjunctivae inflammation, No Eyelid inflammation, No Other, No Redness ENT: No Ear pain, No Ear discharge, No Nose pain, No Nose discharge, No Nose congestion, No Mouth pain, No Mouth swelling, No Throat pain, No Throat swelling, No Other Cardiovascular: No Chest Pain, No Palpitations, No Orthopnea, No Paroxysmal Noc. Dyspnea, No Edema, No Lt Headedness, No Other Respiratory: No Cough, No Dry, No Shortness of breath, No SOB with excertion, No Wheezing, No Hemoptysis, No Pleuritic Pain, No Sputum, No Other Gastrointestinal: No Nausea, No Vomiting, No Abdominal Pain, No Diarrhea, No Constipation, No Melena, No Hematochezia, No Other Genitourinary: Dysuria, Frequency; No Incontinence, No Hematuria, No Retention, No Other Musculoskeletal: No other, No neck pain, No shoulder pain, No arm pain, No back pain, No hand pain; leg pain, foot pain Skin: No Rash, No Lesions, No Jaundice, No Bruising, No Other Objective Vitals Vital Signs Date Time Temp Pulse Resp B/P (MAP) Pulse Ox O2 Delivery O2 Flow Rate FiO2 01/08/25 05:00 98.0 102 18 97/61 (73) 94 98.0 01/07/25 20:00 Room Air* 0 21 Intake/Output Intake and Output 01/08/25 07:00 Intake Total 1400 ml Balance 1400 ml Intake Oral 1400 ml # Voids 9 Medications Current Medications Medications Dose Ordered Sig/Justin Route Start Time Stop Time Status Last Admin Dose Admin Pantoprazole Sodium 40 mg DAILY PO 12/29/24 10:00 01/07/25 09:11 40 MG Enoxaparin Sodium 40 mg DAILY SC 12/29/24 10:00 01/07/25 11:48 40 MG Gabapentin 300 mg HS PO 12/29/24 22:00 01/07/25 22:00 300 MG Al Hydrox/Mg Hydrox/Simethicone 30 ml Q8HP PRN PO 12/29/24 11:30 12/29/24 20:45 30 ML Ondansetron HCl 4 mg Q4HP PRN IV 12/30/24 08:00 01/05/25 15:29 4 MG Acetaminophen/ Hydrocodone Bitart 2 tab Q6HP PRN PO 12/30/24 08:00 01/08/25 01:17 2 TAB Cyclobenzaprine HCl 10 mg TIDP PRN PO 01/01/25 07:45 01/04/25 12:24 10 MG Docusate Sodium 100 mg BIDPRN PRN PO 01/01/25 07:45 Loratadine 10 mg DAILY PO 01/01/25 10:00 01/07/25 11:48 10 MG Amlodipine Besylate 10 mg DAILY PO 01/02/25 20:00 01/07/25 09:11 10 MG Throat Lozenges 1 joo Q2HP PRN MT 01/04/25 03:15 Enteral Nutritional Formula 240 ml BIDWM PO 01/04/25 18:00 01/08/25 08:00 240 ML Iron Sucrose 110 ml @ 110 mls/hr DAILY@1200 IV 01/05/25 12:00 01/09/25 12:59 01/07/25 11:48 110 MLS/HR Fluconazole 200 mg DAILY PO 01/07/25 10:00 01/07/25 09:11 200 MG Diphenhydramine HCl 25 mg Q6HP PRN PO 01/06/25 11:30 01/06/25 21:54 25 MG Laboratory Results Laboratory Tests 01/05/25 05:38 01/06/25 05:22 Urinalysis Test 12/28/24 12:32 01/02/25 10:00 Urine WBC Clumps Present /hpf (None Seen) Urine Color Light-yellow (Yellow) Urine Clarity Turbid (Clear) H Urine pH 5.5 (5.0-9.0) Urine Specific [place] 1.012 (1.001-1.035) Urine Protein Negative (Negative) Urine Ketones 1+ (Negative) H Urine Blood Negative /uL (Negative) Urine Nitrite Negative (Negative) Urine Bilirubin Negative (Negative) Urine Urobilinogen Normal mg/dL (Negative) Urine Leukocyte Esterase 1+ /uL (Negative) Urine RBC 8 /hpf (0 - 4) Urine Microscopic WBC 39 /HPF (0-5) H Urine Squamous Epithelial Cells Few /hpf (<5) Urine Bacteria None seen /hpf (None Seen) Urine Mucus Few (None Seen) Urine Yeast (Budding) Occasional /hpf (None Urine Glucose Normal mg/dL (Normal) Microbiology Microbiology Date/Time Source Procedure Growth Status 01/02/25 10:00 Voided Urine Urine Culture - Final Presumptive Wendi albicans Complete 12/29/24 03:30 Nose MRSA Screen - Final Complete Labs and/or images reviewed: Labs reviewed by me, Image(s) reviewed by me Assessment/Plan Assessment/Plan 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 daily Hypertension Obesity Expected postop anemia hemoglobin 9.1, continue iron infusion Physical therapy Plan discussed with: Patient Date of Service: Jan 08, 2025 Billing Provider: SUPRIYA CINTRON MD Common Visit Codes: [id number] INP/OBS CARE(HIGH) SUPRIYA CINTRON MD Jan 08, 2025 09:04
[2025-01-08] MEDS: DOCUSATE SOD 100 MG CAP PO PRN (09:34)
[2025-01-09 05:00] VITALS: BP 144/67; PULSE 91; RESP 18; TEMP 98; O2SAT 92
[2025-01-09 09:25] VITALS: BP 153/64; PULSE 60; RESP 19; TEMP 98; O2SAT 99
--- NOTE | 2025-01-09 09:25 | DVHPN2 ---
Reviewed: Care Plan, H&P, Labs, Medications, Previous Orders, Radiology Changes from previous H/P or p: No Changes Eyes: No Pain, No Vision change, No Conjunctivae inflammation, No Eyelid inflammation, No Other, No Redness ENT: No Ear pain, No Ear discharge, No Nose pain, No Nose discharge, No Nose congestion, No Mouth pain, No Mouth swelling, No Throat pain, No Throat swelling, No Other Cardiovascular: No Chest Pain, No Palpitations, No Orthopnea, No Paroxysmal Noc. Dyspnea, No Edema, No Lt Headedness, No Other Respiratory: No Cough, No Dry, No Shortness of breath, No SOB with excertion, No Wheezing, No Hemoptysis, No Pleuritic Pain, No Sputum, No Other Gastrointestinal: No Nausea, No Vomiting, No Abdominal Pain, No Diarrhea, No Constipation, No Melena, No Hematochezia, No Other Genitourinary: Dysuria, Frequency; No Incontinence, No Hematuria, No Retention, No Other Musculoskeletal: No other, No neck pain, No shoulder pain, No arm pain, No back pain, No hand pain; leg pain, foot pain Skin: No Rash, No Lesions, No Jaundice, No Bruising, No Other Objective Vitals Vital Signs Date Time Temp Pulse Resp B/P (MAP) Pulse Ox O2 Delivery O2 Flow Rate FiO2 01/09/25 05:00 98.0 91 18 144/67 (92) 92 98.0 01/08/25 20:00 Room Air* 0 21 Intake/Output Intake and Output 01/09/25 07:00 Intake Total 1290 ml Balance 1290 ml Intake Oral 1180 ml IV Total 110 ml # Voids 9 Medications Current Medications Medications Dose Ordered Sig/Justin Route Start Time Stop Time Status Last Admin Dose Admin Pantoprazole Sodium 40 mg DAILY PO 12/29/24 10:00 01/08/25 09:21 40 MG Enoxaparin Sodium 40 mg DAILY SC 12/29/24 10:00 01/08/25 09:21 40 MG Gabapentin 300 mg HS PO 12/29/24 22:00 01/07/25 22:00 300 MG Al Hydrox/Mg Hydrox/Simethicone 30 ml Q8HP PRN PO 12/29/24 11:30 12/29/24 20:45 30 ML Ondansetron HCl 4 mg Q4HP PRN IV 12/30/24 08:00 01/08/25 20:23 4 MG Acetaminophen/ Hydrocodone Bitart 2 tab Q6HP PRN PO 12/30/24 08:00 01/09/25 07:34 2 TAB Cyclobenzaprine HCl 10 mg TIDP PRN PO 01/01/25 07:45 01/04/25 12:24 10 MG Docusate Sodium 100 mg BIDPRN PRN PO 01/01/25 07:45 01/08/25 09:34 100 MG Loratadine 10 mg DAILY PO 01/01/25 10:00 01/08/25 09:21 10 MG Amlodipine Besylate 10 mg DAILY PO 01/02/25 20:00 01/07/25 09:11 10 MG Throat Lozenges 1 joo Q2HP PRN MT 01/04/25 03:15 Enteral Nutritional Formula 240 ml BIDWM PO 01/04/25 18:00 01/08/25 18:00 240 ML Iron Sucrose 110 ml @ 110 mls/hr DAILY@1200 IV 01/05/25 12:00 01/09/25 12:59 01/08/25 12:13 110 MLS/HR Fluconazole 200 mg DAILY PO 01/07/25 10:00 01/08/25 09:22 200 MG Diphenhydramine HCl 25 mg Q6HP PRN PO 01/06/25 11:30 01/06/25 21:54 25 MG Laboratory Results Laboratory Tests 01/05/25 05:38 01/06/25 05:22 Urinalysis Test 12/28/24 12:32 01/02/25 10:00 Urine WBC Clumps Present /hpf (None Seen) Urine Color Light-yellow (Yellow) Urine Clarity Turbid (Clear) H Urine pH 5.5 (5.0-9.0) Urine Specific [place] 1.012 (1.001-1.035) Urine Protein Negative (Negative) Urine Ketones 1+ (Negative) H Urine Blood Negative /uL (Negative) Urine Nitrite Negative (Negative) Urine Bilirubin Negative (Negative) Urine Urobilinogen Normal mg/dL (Negative) Urine Leukocyte Esterase 1+ /uL (Negative) Urine RBC 8 /hpf (0 - 4) Urine Microscopic WBC 39 /HPF (0-5) H Urine Squamous Epithelial Cells Few /hpf (<5) Urine Bacteria None seen /hpf (None Seen) Urine Mucus Few (None Seen) Urine Yeast (Budding) Occasional /hpf (None Urine Glucose Normal mg/dL (Normal) Microbiology Microbiology Date/Time Source Procedure Growth Status 01/02/25 10:00 Voided Urine Urine Culture - Final Presumptive Wendi albicans Complete 12/29/24 03:30 Nose MRSA Screen - Final Complete Labs and/or images reviewed: Labs reviewed by me, Image(s) reviewed by me Assessment/Plan Assessment/Plan 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 daily Hypertension Obesity Expected postop anemia hemoglobin 9.1, continue iron infusion Physical therapy ordered CBC ordered for Friday Patient does not want to go home till Friday Plan discussed with: Patient Date of Service: Jan 09, 2025 Billing Provider: SUPRIYA CINTRON MD Common Visit Codes: [id number] INP/OBS CARE(HIGH) SUPRIYA CINTRON MD Jan 09, 2025 09:25
[2025-01-09 10:00] VITALS: O2SAT 91
[2025-01-09 13:00] VITALS: BP_SYST 125; BP_SYST 81; BP_DIAS 44; BP_DIAS 65; PULSE 102; PULSE 131; RESP 19; RESP 20; TEMP 98; O2SAT 91; O2SAT 96
[2025-01-09 17:21] VITALS: BP 153/65; PULSE 103; RESP 17; TEMP 98; O2SAT 93
[2025-01-09] MEDS: ACETAMINOPHEN 325 MG TAB PO PRN (20:18)
[2025-01-09 21:00] VITALS: BP 150/81; PULSE 107; RESP 18; TEMP 97.9; O2SAT 96
[2025-01-09 21:27] LABS: Urine Bacteria None Seen /hpf (None Seen)
[2025-01-09 21:56] LABS: Urine Blood 1+ /uL (Negative); Urine Clarity Ex.Turbid (Clear); Urine Color Colorless (Yellow); Urine Protein, UAD 1+ (Negative); Urine Specific Gravity 1.008 (1.001-1.035); Urine Squamous Epithelial Cell None Seen /hpf (<5); Urine Urobilinogen Normal (Negative); Urine WBC 3222 /HPF (0-5); Urine WBC Clumps PRESENT /hpf (None Seen)
[2025-01-10 01:00] VITALS: BP 152/73; PULSE 95; RESP 17; TEMP 98.1; O2SAT 96
[2025-01-10 05:00] VITALS: BP 139/63; PULSE 99; RESP 17; TEMP 98.6; O2SAT 99
[2025-01-10 05:20] LABS: Basophils # (auto) 0.1 10 ^3/uL (0-0.2); Eosinophils # (auto) 0.3 10 ^3/uL (0-0.8); Eosinophils % (auto) 2.1 % (0.0-7.0); Monocytes # (auto) 0.9 10 ^3/uL (0-1.3); Nucleated Red Blood Cells % 0.1 %; White Blood Cell 14.6 10^3/uL (4.4-10.8)
[2025-01-10 05:26] LABS: Basophils % (auto) 0.5 % (0.0-2.0); Hematocrit 32.7 % (36.0-46.0); Hemoglobin 10.9 g/dL (12.2-16.2); Lymphocytes # (auto) 2.1 10 ^3/uL (0.4-5.4); Lymphocytes % (auto) 14.2 % (10.0-50.0); Mean Corpuscular Hemoglobin 26.4 pg (28.0-32.0); Mean Corpuscular Hgb Conc. 33.3 g/dL (32.0-36.0); Mean Corpuscular Volume 79.3 fL (80.0-100.0); Neutrophils # (auto) 11.3 10 ^3/uL (1.6-8.6); Neutrophils % (auto) 77.2 % (37.0-80.0); Platelet Count (auto) 675 10^3/uL (140-450); Red Blood Cells 4.12 10^6/uL (4.0-5.20); Red Cell Distribution Width 15.8 % (11.8-14.3)
--- NOTE | 2025-01-10 08:39 | DVHPN2 ---
Reviewed: Care Plan, H&P, Labs, Medications, Previous Orders, Radiology Changes from previous H/P or p: No Changes Eyes: No Pain, No Vision change, No Conjunctivae inflammation, No Eyelid inflammation, No Other, No Redness ENT: No Ear pain, No Ear discharge, No Nose pain, No Nose discharge, No Nose congestion, No Mouth pain, No Mouth swelling, No Throat pain, No Throat swelling, No Other Cardiovascular: No Chest Pain, No Palpitations, No Orthopnea, No Paroxysmal Noc. Dyspnea, No Edema, No Lt Headedness, No Other Respiratory: No Cough, No Dry, No Shortness of breath, No SOB with excertion, No Wheezing, No Hemoptysis, No Pleuritic Pain, No Sputum, No Other Gastrointestinal: No Nausea, No Vomiting, No Abdominal Pain, No Diarrhea, No Constipation, No Melena, No Hematochezia, No Other Genitourinary: Dysuria, Frequency; No Incontinence, No Hematuria, No Retention, No Other Musculoskeletal: No other, No neck pain, No shoulder pain, No arm pain, No back pain, No hand pain; leg pain, foot pain Skin: No Rash, No Lesions, No Jaundice, No Bruising, No Other Objective Vitals Vital Signs Date Time Temp Pulse Resp B/P (MAP) Pulse Ox O2 Delivery O2 Flow Rate FiO2 01/10/25 05:00 98.6 99 17 139/63 (88) 99 98.6 01/09/25 20:00 Room Air* 0 21 Intake/Output Intake and Output 01/10/25 07:00 Intake Total 200 ml Balance 200 ml Intake Oral 200 ml # Voids 7 # Bowel Movements 2 Medications Current Medications Medications Dose Ordered Sig/Justin Route Start Time Stop Time Status Last Admin Dose Admin Pantoprazole Sodium 40 mg DAILY PO 12/29/24 10:00 01/09/25 10:23 40 MG Gabapentin 300 mg HS PO 12/29/24 22:00 01/07/25 22:00 300 MG Al Hydrox/Mg Hydrox/Simethicone 30 ml Q8HP PRN PO 12/29/24 11:30 12/29/24 20:45 30 ML Ondansetron HCl 4 mg Q4HP PRN IV 12/30/24 08:00 01/08/25 20:23 4 MG Cyclobenzaprine HCl 10 mg TIDP PRN PO 01/01/25 07:45 01/04/25 12:24 10 MG Docusate Sodium 100 mg BIDPRN PRN PO 01/01/25 07:45 01/08/25 09:34 100 MG Loratadine 10 mg DAILY PO 01/01/25 10:00 01/09/25 10:23 10 MG Amlodipine Besylate 10 mg DAILY PO 01/02/25 20:00 01/09/25 10:24 10 MG Throat Lozenges 1 joo Q2HP PRN MT 01/04/25 03:15 Enteral Nutritional Formula 240 ml BIDWM PO 01/04/25 18:00 01/09/25 08:00 240 ML Fluconazole 200 mg DAILY PO 01/07/25 10:00 01/09/25 10:23 200 MG Diphenhydramine HCl 25 mg Q6HP PRN PO 01/06/25 11:30 01/06/25 21:54 25 MG Acetaminophen 650 mg Q4HP PRN PO 01/09/25 18:30 01/10/25 05:18 650 MG Laboratory Results Laboratory Tests 01/05/25 05:38 01/10/25 04:45 Urinalysis Test 01/02/25 10:00 01/09/25 21:15 Urine Mucus Few (None Seen) Urine Yeast (Budding) Occasional /hpf (None Urine Color Colorless (Yellow) Urine Clarity Ex.turbid (Clear) Urine pH 8.0 (5.0-9.0) Urine Specific [place] 1.008 (1.001-1.035) Urine Protein 1+ (Negative) H Urine Ketones Negative (Negative) Urine Blood 1+ /uL (Negative) H Urine Nitrite 2+ (Negative) H Urine Bilirubin Negative (Negative) Urine Urobilinogen Normal mg/dL (Negative) Urine Leukocyte Esterase 3+ /uL (Negative) Urine RBC 36 /hpf (0 - 4) Urine WBC Clumps Present /hpf (None Seen) Urine Microscopic WBC 3222 /HPF (0-5) H Urine Squamous Epithelial Cells None seen /hpf (<5) Urine Bacteria None seen /hpf (None Seen) Urine Glucose Normal mg/dL (Normal) Microbiology Microbiology Date/Time Source Procedure Growth Status 01/02/25 10:00 Voided Urine Urine Culture - Final Presumptive Wendi albicans Complete 12/29/24 03:30 Nose MRSA Screen - Final Complete Labs and/or images reviewed: Labs reviewed by me, Image(s) reviewed by me Assessment/Plan Assessment/Plan 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 daily Hypertension Obesity Expected postop anemia hemoglobin 10.9, DC iron infusion Physical therapy ordered CBC ordered for Friday Patient does not want to go home till Friday Plan discussed with: Patient Date of Service: Jan 10, 2025 Billing Provider: SPURIYA CINTRON MD Common Visit Codes: [id number] INP/OBS CARE(HIGH) SUPRIYA CINTRON MD Jan 10, 2025 08:39
[2025-01-10 09:00] VITALS: BP 145/74; PULSE 89; RESP 18; TEMP 98.1; O2SAT 93
[2025-01-10 10:00] VITALS: O2SAT 93
[2025-01-10 12:59] VITALS: BP 127/78; PULSE 106; RESP 18; TEMP 98; O2SAT 97
--- NOTE | 2025-01-10 13:44 | DVHDS2 ---
Discharge Summary Date of Admission Dec 28, 2024 at 15:40 Date of Discharge: Jan 10, 2025 Admitting Diagnosis Severe DJD LS spine Wounds: LS spine surgery Labs/Diagnostic Data: Laboratory Results Test 01/10/25 04:45 01/09/25 21:15 01/05/25 05:38 01/03/25 06:50 White Blood Count 14.6 10^3/uL (4.4-10.8) Red Blood Count 4.12 10^6/uL (4.0-5.20) Hemoglobin 10.9 g/dL (12.2-16.2) Hematocrit 32.7 % (36.0-46.0) Mean Corpuscular Volume 79.3 fL (80.0-100.0) Mean Corpuscular Hemoglobin 26.4 pg (28.0-32.0) Mean Corpuscular Hemoglobin Concent 33.3 g/dL (32.0-36.0) Red Cell Distribution Width 15.8 % (11.8-14.3) Platelet Count 675 10^3/uL (140-450) Mean Platelet Volume 6.6 fL (6.9-10.8) Neutrophils (%) (Auto) 77.2 % (37.0-80.0) Lymphocytes (%) (Auto) 14.2 % (10.0-50.0) Monocytes (%) (Auto) 6.0 % (0.0-12.0) Eosinophils (%) (Auto) 2.1 % (0.0-7.0) Basophils (%) (Auto) 0.5 % (0.0-2.0) Neutrophils # (Auto) 11.3 10 ^3/uL (1.6-8.6) Lymphocytes # (Auto) 2.1 10 ^3/uL (0.4-5.4) Monocytes # (Auto) 0.9 10 ^3/uL (0-1.3) Eosinophils # (Auto) 0.3 10 ^3/uL (0-0.8) Basophils # (Auto) 0.1 10 ^3/uL (0-0.2) Nucleated Red Blood Cells 0.1 % Urine Color Colorless (Yellow) Urine Clarity Ex.turbid (Clear) Urine pH 8.0 (5.0-9.0) Urine Specific [facility] 1.008 (1.001-1.035) Urine Protein 1+ (Negative) Urine Ketones Negative (Negative) Urine Blood 1+ /uL (Negative) Urine Nitrite 2+ (Negative) Urine Bilirubin Negative (Negative) Urine Urobilinogen Normal mg/dL (Negative) Urine Leukocyte Esterase 3+ /uL (Negative) Urine RBC 36 /hpf (0 - 4) Urine WBC Clumps Present /hpf (None Seen) Urine Microscopic WBC 3222 /HPF (0-5) Urine Squamous Epithelial Cells None seen /hpf (<5) Urine Bacteria None seen /hpf (None Seen) Urine Glucose Normal mg/dL (Normal) Sodium Level 138 mmol/L (136-145) Potassium Level 3.6 mmol/L (3.5-5.1) Chloride Level 102 mmol/L (98-107) Carbon Dioxide Level 28 mmol/L (20-31) Anion Gap 8 (5-15) Blood Urea Nitrogen 8 mg/dL (9-23) Creatinine 0.73 mg/dL (0.550-1.02) Glomerular Filtration Rate Calc 93 mL/min (>90) BUN/Creatinine Ratio 11.0 (10.0-20.0) Serum Glucose 100 mg/dL (74-106) Calcium Level 9.1 mg/dL (8.7-10.4) Magnesium Level 2.1 mg/dL (1.6-2.6) Total Bilirubin 0.3 mg/dL (0.2-1.0) Aspartate Amino Transferase (AST) 30 U/L (13-40) Alanine Aminotransferase (ALT) 41 U/L (7-40) Alkaline Phosphatase 113 U/L (46-116) Total Protein 6.1 g/dL (5.7-8.2) Albumin 3.6 g/dL (3.2-4.8) Test 01/02/25 20:47 01/02/25 10:00 12/29/24 15:51 12/28/24 12:00 Vancomycin Level Trough 10.8 ug/mL (5-10) Urine Mucus Few (None Seen) Urine Yeast (Budding) Occasional /hpf (None Prothrombin Time 11.1 sec (9.3-11.8) Prothrombin Time INR 1.05 (0.9-1.15) Activated Partial Thromboplast Time 29.9 SEC (24.5-34.5) Erythrocyte Sedimentation Rate 20 mm/hr (0-20) C-Reactive Protein High Sensitivity 0.75 mg/dL (<1.0) Thyroid Stimulating Hormone (TSH) 3.49 uIU/mL (0.55-4.78) Other Laboratory Tests 01/10/25 04:45 01/05/25 05:38 Brief Hx & Hospital Course: 64-year-old female with severe DJD LS spine underwent surgery by Dr. Berry on 12/30/2024. Postop course uneventful except for mild anemia treated with iron infusion UTI with Wendi albicans treated with the Diflucan. The patient feeling better received physical therapy. Being discharged home on [place] and Flexeril she will follow up with the Dr. Berry in one week and with her PCP Dr. Peterson in one week. Consults/Reason for consult Spine surgeon Dr. 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 daily Hypertension Obesity Expected postop anemia hemoglobin 10.9, DC iron infusion Discharge Disposition: Home with Health Services Discharge Instruct/Medications Diet: Regular Activity: Light activity Follow Up/Referral: Follow up with the primary Dr Espinosa in one week Follow up with the spine surgeon Dr. Berry in one week Medications: [place] 01/3251 tablet p.o. q.6 hours p.r.n. pain number 30 Flexeril Transmitted to the pharmacy 35 (Time taken for discharge summary 35 minutes) Discharge Statement: "Patient was advised to return to the ER or call 911 if any headaches, dizziness, shortness of breath, chest pain, abdominal pain, bleeding, fevers, or worsening of medical condition. Patient was counseled about treatment plan, medications, possible side effects, patientverbalized understanding. All questions were answered to the best of my ability. 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 daily Hypertension Obesity Expected postop anemia hemoglobin 10.9, DC iron infusion Date of Service: Jan 10, 2025 Billing Provider: SUPRIYA CINTRON MD Common Visit Codes: [id number] DISCH DAY >30min SUPRIYA CINTRON MD Jan 10, 2025 13:44
[2025-01-10] MEDS: HYDROcodone-ACET 10/325MG TAB PO ONE (15:28)
== END 2025-01-10 16:54 | disposition home health service (06) | DRG 304 ==
LOC: EDBD 11:09 → ER 11:09 → OVERFLOW 15:40 → EAST 22:10 → TELE-EAST 12-30 14:21 → EAST 01-03 16:41 → CENTRAL 01-09 18:27
PROVIDERS: ADMIT Family Medicine; ATTEND Family Medicine
PROC: 01NB0ZZ Release Lumbar Nerve, Open Approach (ICD-10-PCS; 2024-12-30)
PROC: 00NY0ZZ Release Lumbar Spinal Cord, Open Approach (ICD-10-PCS; 2024-12-30)
PROC: 4A11X4G Monitoring of Peripheral Nervous Electrical Activity, Intraoperative, External Approach (ICD-10-PCS; 2024-12-30)
PROC: 0SG1071 Fusion of 2 or more Lumbar Vertebral Joints with Autologous Tissue Substitute, Posterior Approach, Posterior Column, Open Approach (ICD-10-PCS; principal; 2024-12-30 07:33)
PROC: 05HB33Z Insertion of Infusion Device into Right Basilic Vein, Percutaneous Approach (ICD-10-PCS; 2025-01-02)
PROC: B54MZZA Ultrasonography of Right Upper Extremity Veins, Guidance (ICD-10-PCS; 2025-01-02)
DX: M48.062 Spinal stenosis, lumbar region with neurogenic claudication (principal); B37.7 Candidal sepsis; D64.89 Other specified anemias; D75.839 Thrombocytosis, unspecified; E11.9 Type 2 diabetes mellitus without complications; B37.49 Other urogenital candidiasis; E66.9 Obesity, unspecified; I10 Essential (primary) hypertension; J45.909 Unspecified asthma, uncomplicated; K21.9 Gastro-esophageal reflux disease without esophagitis; M43.16 Spondylolisthesis, lumbar region; R32 Unspecified urinary incontinence; N30.00 Acute cystitis without hematuria; M54.31 Sciatica, right side; M47.26 Other spondylosis with radiculopathy, lumbar region; M51.369 Other intervertebral disc degeneration, lumbar region without mention of lumbar back pain or lower extremity pain; Z98.891 History of uterine scar from previous surgery; Z90.49 Acquired absence of other specified parts of digestive tract; Z88.5 Allergy status to narcotic agent; Z88.0 Allergy status to penicillin; Z79.899 Other long term (current) drug therapy; Z79.2 Long term (current) use of antibiotics; Z68.33 Body mass index [BMI] 33.0-33.9, adult; Z89.431 Acquired absence of right foot
CPT/HCPCS: 36415; 71045; 72100; 72131; 72192; 73700; 76000; 80048; 80053; 80202; 81001; 83735; 84443; 85025; 85610; 85652; 85730; 86141; 86850; 86900; 86901; 87081; 87086; 87088; 93005; 93970; 94640; 97110; 97116; 97163; 97530; G0378; J0692; J1450; J1756; J1885; J1956; J2003; J2250; J2405; J2704

== ENCOUNTER → 2025-02-16 | Outpatient (CLI) | payer MEDICAID ==
[~2025-02-16] MED LIST changes: -AMOX1CAP87 PO; +CYCL-611 PO; +DOCU-265 PO; +FLUC200T PO; +HYDR-4798 PO
[2025-02-16 14:42] LABS: Urine Bacteria None Seen /hpf (None Seen)
[2025-02-16 16:10] LABS: Urine Blood Negative /uL (Negative); Urine Clarity Clear (Clear); Urine Color Light-Yellow (Yellow); Urine Protein, UAD Negative (Negative); Urine Specific Gravity 1.012 (1.001-1.035); Urine Squamous Epithelial Cell FEW /hpf (<5); Urine Urobilinogen Normal (Negative); Urine WBC 6 /HPF (0-5); Urine pH 5.5 (5.0-9.0)
== END | disposition home or self-care (01) ==
LOC: LAB 14:38
PROVIDERS: ATTEND Internal Medicine
DX: N39.0 Urinary tract infection, site not specified (principal)
CPT/HCPCS: 81001; 87086

== ENCOUNTER 2025-03-07 11:46 | Outpatient (CLI) | payer MEDICAID | END 2025-03-07 17:00 | disposition home or self-care (01) | LOC: LAB 11:46 | PROVIDERS: ATTEND Internal Medicine | DX: A04.8 Other specified bacterial intestinal infections (principal) | CPT/HCPCS: 83013 ==